=== PATIENT | male | born 1965 | race Caucasian/White ===

== ENCOUNTER → 2018-12-15 09:05 | Outpatient (POV) | payer BC, SELFPAY ==
[2018-12-15 09:23] VITALS: BP 131/85; PULSE 75; RESP 18; O2SAT 98; BMI 44.3
--- NOTE | 2018-12-15 09:49 | HMH.PMCON ---
Assessment and Plan (1) Myofascial pain syndrome of thoracic spine Current visit: Yes Status: Chronic Category: Medical Code(s): M79.18 - Myalgia, other site - Assessment and plan all Dx Assessment and Plan for all problems:: We will schedule the patient for dry needling with physical therapy. We will see if the patient benefits from this. He would like to follow-up on an as-needed basis. He is been instructed to call the office if he has any issues or wants to follow-up. Dr. Preston has reviewed this note and agrees with this plan of care. This note was dictated using voice recognition software and may contain errors or omissions HPI - Data of Consult Patient: new to practice Consult date: 12/15/18 Requesting Physician: Deja Teague APRN Primary Care Provider: Robert Boyle MD - Consult Narrative Reason for consult: Myofascial pain History of present illness: Mr. Toussaint is a 53 year old male who presents today referral from Dr. Fernandez's office. Patient has a complaint of thoracic myofascial pain. Patient says that he has tried epidural injections twice and developed a headache. He also says that he has tried Botox and trigger point injections x4. He did get relief for about a week, but reports the pain came right back. He has been performing a home stretching program as well as anti-inflammatories. Patient would like to try dry needling. He rates his pain today a 6 out of 10 CC: Deja Teague APRN [facility] History I have reviewed the patient's past medical history: Yes Medical History: Denies:: Cancer, Diabetes Mellitus Type 1, Diabetes Mellitus Type 2, MRSA *Have you ever received a pneumonia vaccine?: No *Have you received a flu vaccine this season?: No Other Surgeries: Yes: Hernia Repair Amputation: No Fractures: No - *Social History Smoking Status: Never smoker Alcohol Intake: never Substance Use Type: denies use *Occupational Status:: other Housing: house Household Members: spouse *Travel in the last 8 weeks: None - Psychiatric History Expresses thoughts of harming self/others: None Suicide Plan Description: No Plan Family Hx:: Unable to obtain Review of Systems - Review of Systems ROS General: no recent weight change, no fever, no sleep disturbances Respiratory: no cough, no shortness of air, no recurring pulmonary infections Cardiovascular/Peripheral Vascular: No chest pain, No palpitations, no edema, no shortness of breath. Gastrointestinal: no incontinence, normal bowel movements reported Genitourinary: no incontinence Musculoskeletal: Left thoracic back pain Psychiatric: normal mood/ affect, [denies depression], [denies anxiety] Neurological: [denies weakness in extremities], [denies balance issues] Meds Home Medications Medication Instructions Recorded Confirmed Type Ibuprofen [Ibuprofen 600mg Tab] 600 mg PO TID 12/27/17 12/14/18 History amitriptyline 100 mg tablet 100 mg PO QHS #30 tab 11/27/18 12/14/18 Rx amitriptyline 25 mg tablet 25 mg PO DAILY 11/27/18 12/14/18 History diazepam 5 mg tablet 5 mg PO QHS PRN 11/27/18 12/14/18 History famotidine 20 mg tablet 20 mg PO TID tab 11/27/18 12/14/18 History fluticasone propionate 50 1 spray INTRANASAL DAILY 11/27/18 12/14/18 History mcg/actuation nasal spray,suspension gabapentin 100 mg capsule See Rx Instructions PO .COMPLEX 11/27/18 12/14/18 History nebivolol 5 mg tablet 5 mg PO DAILY 11/27/18 12/14/18 History omeprazole 40 mg capsule,delayed 40 mg PO DAILY 11/27/18 12/14/18 History release tizanidine 4 mg capsule 4 mg PO BID PRN cap 11/27/18 12/14/18 History fluoxetine 20 mg capsule 20 mg PO DAILY #30 cap 12/14/18 12/14/18 Rx Allergies Allergy/AdvReac Type Severity Reaction Status Date / Time LACTOSE (FOOD) AdvReac Unknown NA-DIARRHEA Uncoded 12/14/18 09:25 Objective Vital signs: Pulse Resp BP Pulse Ox 75 18 131/85 98 12/15/18 09:23 12/15/18 09:23 12/15/18 09:23
--- NOTE | 2018-12-15 09:53 | P.CONS_ITS ---
Assessment and Plan (1) Myofascial pain syndrome of thoracic spine Current visit: Yes Status: Chronic Category: Medical Code(s): M79.18 - Myalgia, other site - Assessment and plan all Dx Assessment and Plan for all problems:: We will schedule the patient for dry needling with physical therapy. We will see if the patient benefits from this. He would like to follow-up on an as- needed basis. He is been instructed to call the office if he has any issues or wants to follow-up. Dr. Preston has reviewed this note and agrees with this plan of care. This note was dictated using voice recognition software and may contain errors or omissions HPI - Data of Consult Patient: new to practice Consult date: 12/15/18 Requesting Physician: Deja Teague APRN Primary Care Provider: Robert Boyle MD - Consult Narrative Reason for consult: Myofascial pain History of present illness: Mr. Toussaint is a 53 year old male who presents today referral from Dr. Fernandez's office. Patient has a complaint of thoracic myofascial pain. Patient says that he has tried epidural injections twice and developed a headache. He also says that he has tried Botox and trigger point injections x4. He did get relief for about a week, but reports the pain came right back. He has been performing a home stretching program as well as anti-inflammatories. Patient would like to try dry needling. He rates his pain today a 6 out of 10 CC: Deja Teague APRN [facility] History I have reviewed the patient's past medical history: Yes Medical History: Denies:: Cancer, Diabetes Mellitus Type 1, Diabetes Mellitus Type 2, MRSA *Have you ever received a pneumonia vaccine?: No *Have you received a flu vaccine this season?: No Other Surgeries: Yes: Hernia Repair Amputation: No Fractures: No - *Social History Smoking Status: Never smoker Alcohol Intake: never Substance Use Type: denies use *Occupational Status:: other Housing: house Household Members: spouse *Travel in the last 8 weeks: None - Psychiatric History Expresses thoughts of harming self/others: None Suicide Plan Description: No Plan Family Hx:: Unable to obtain Review of Systems - Review of Systems ROS General: no recent weight change, no fever, no sleep disturbances Respiratory: no cough, no shortness of air, no recurring pulmonary infections Cardiovascular/Peripheral Vascular: No chest pain, No palpitations, no edema, no shortness of breath. Gastrointestinal: no incontinence, normal bowel movements reported Genitourinary: no incontinence Musculoskeletal: Left thoracic back pain Psychiatric: normal mood/ affect, [denies depression], [denies anxiety] Neurological: [denies weakness in extremities], [denies balance issues] Meds Home Medications Medication Instructions Recorded Confirmed Type Ibuprofen [Ibuprofen 600mg Tab] 600 mg PO TID 12/27/17 12/14/18 History amitriptyline 100 mg tablet 100 mg PO QHS #30 tab 11/27/18 12/14/18 Rx amitriptyline 25 mg tablet 25 mg PO DAILY 11/27/18 12/14/18 History diazepam 5 mg tablet 5 mg PO QHS PRN 11/27/18 12/14/18 History famotidine 20 mg tablet 20 mg PO TID tab 11/27/18 12/14/18 History fluticasone propionate 50 1 spray INTRANASAL DAILY 11/27/18 12/14/18 History mcg/actuation nasal spray,suspension gabapentin 100 mg capsule See Rx Instructions PO .COMPLEX 11/27/18 12/14/18 History nebivolol 5 mg tablet 5 mg PO DAILY 11/27/18
== END ==
PROVIDERS: PCP Internal Medicine Adolescent Medicine; Visit Provider Clinical Nurse Specialist Family Health
DX: M79.18 Myalgia, other site (principal)
CPT/HCPCS: 99202

== ENCOUNTER 2018-12-29 11:00 | Outpatient (RCR) | payer BC, SELFPAY ==
--- NOTE | 2018-12-17 12:05 | HMH.PTOPEV ---
PT Outpatient Evaluation Rehab PT Outpatient Evaluation Start: 12/17/18 10:08 Freq: Status: Active Protocol: Document 12/17/18 11:52 GOLDY (Rec: 12/17/18 12:05 PHORNIKO [id number]) Electronically Signed By Fco Mares, PT 12/17/18 11:52 Outpatient Therapy Subjective History Subjective History Pt is 53 yowm who presents with c/o pain medial to the medial border of his left scapula x ~ 2 yrs with insidious onset of symptoms. He was working at [employer] when his symptoms occured, but he does not remember a specific injury that could cause these symptoms. He has seen multiple MDs and been to multiple therapy visits at different location with little to no relief. He reports the best relief he received was from trigger pt injection in the area, but this only lasted 1-2 wks. He reports the pain as constant ache and throb with kim pains intermittently, especially with certain movements or jarring sensations from driving or other similar activities. He currently reports pain 6/10 at rest and 10/10 at worst. He reports no significant PMH. Chief Complaint Pain,Spasms Symptom Type Ache,Throb,Sharp,Stabbing, Shooting Symptoms Relieved By Nothing Symptoms Aggravated By Sitting,Standing,Physical Activity,Twisting,Walking, Lifting Prior Functional Limitations None Current Functional Limitations Reaching,Lifting,Housework, Driving,Sleeping,Standing, Sitting,Recreation Activity, Walking Symptom Description Constant but Variable Level of pain today (0-10) 6 Pain scale - at its worst (0-10) 10 Shoulder/Elbow Eval Shoulder Objective Measurements Palpation Tenderness Shoulder Palpation Findings Tenderness,Muscle Guarding Shoulder Palpation Overall Comment Very severe tenderness between medial scapula and T-spine
== END 2018-12-29 11:05 | disposition home or self-care (01) ==
LOC: PT 11:00
PROVIDERS: Visit Provider Clinical Nurse Specialist Family Health
DX: M54.6 Pain in thoracic spine (principal)
CPT/HCPCS: 97010; 97014; 97035; 97110; 97140; 97163; G0283

== ENCOUNTER → 2019-12-06 08:49 | Outpatient (CLI) | payer BC, MEDICAID, SELFPAY ==
--- NOTE | 2019-12-06 08:55 | MR_ITS ---
PROCEDURE: MR THORACIC SPINE WO CON CLINICAL INDICATION: THORACIC NEURALGIA, PAIN IN LEFT SHOULDER Mid back pain worse on the left COMPARISON: CXR1 CHEST-PORTABLE from 07/05/2016 TSW/O MRI-T-SPINE W/O from 12/03/2016 TECHNIQUE: Routine multiplanar multi echo sequences are performed without gadolinium enhancement. FINDINGS: There is mild midthoracic curvature convex right. No fracture or dislocation. No bony destructive process. There is some mild disc desiccation at T8-T9. No disc herniation or canal stenosis.. There is some slight increase in T1 and T2 signal in the central and posterior aspect of the T6 vertebral body may be due to small lipomas/hemangiomas unchanged. IMPRESSION: Overall stable MRI appearance of the thoracic spine. Minimal thoracic curvature convex right with minimal disc desiccation at T8-T9 otherwise negative Dictated by: Cristian Chi MD 12/07/2019 11:35 Electronically signed by Cristian Chi MD in [place] 12/07/2019 11:35
--- NOTE | 2019-12-06 08:55 | MR_ITS ---
PROCEDURE: MR SHOULDER LT WO CON CLINICAL INDICATION: THORACIC NEURALGIA, PAIN IN LEFT SHOULDER Left shoulder pain with limited range of motion COMPARISON: No exams were available for comparison TECHNIQUE: Routine multiplanar multi echo sequences are performed without gadolinium enhancement. FINDINGS: There is slight increased T2 signal involving the undersurface of the supraspinatus tendon. Cannot exclude the possibility of a incomplete tear. There is mild thickening of the supraspinatus and infraspinatus tendon with increased T2 signal suggesting tendinopathy/tendinosis. The subscapularis and teres minor tendons appear intact. The bicipital tendon is in place with a small amount fluid in the bicipital tendon sheath. There is increased T2 signal involving the anterior glenoid labrum superiorly possibly due to a SLAP injury. Small amount fluid is present in the subcoracoid region. Mild hypertrophic changes involve the acromioclavicular joint. No significant subacromial stenosis. IMPRESSION: 1. Tendinopathy/tendinosis of the supraspinatus and infraspinatus tendons with possible incomplete tear of the undersurface of the supraspinatus tendon 2. Suspected SLAP tear of the anterior glenoid labrum. This could be confirmed with MR arthrogram if clinically desired. 3. Small shoulder joint effusion with small amount fluid in the sub coracoid region Dictated by: Cristian Chi MD 12/07/2019 16:43 Electronically signed by Cristian Chi MD in [place] 12/07/2019 16:43
== END ==
PROVIDERS: PCP Internal Medicine Adolescent Medicine; Visit Provider Internal Medicine Adolescent Medicine
DX: M79.2 Neuralgia and neuritis, unspecified (principal); M79.18 Myalgia, other site; M25.512 Pain in left shoulder
CPT/HCPCS: 72146; 73221

== ENCOUNTER 2019-12-23 11:00 | Outpatient (RCR) | payer BC, MEDICAID, SELFPAY | END 2019-12-23 11:05 | disposition home or self-care (01) | LOC: PT 11:00 | PROVIDERS: PCP Internal Medicine Adolescent Medicine; Visit Provider Anesthesiology Pain Medicine | DX: M54.6 Pain in thoracic spine (principal) | CPT/HCPCS: 97010; 97014; 97035; 97110; 97140; 97163; G0283 ==

== ENCOUNTER → 2020-12-20 12:04 | Outpatient (CLI) | payer MEDICARE, BC, SELFPAY ==
--- NOTE | 2020-12-20 12:14 | XR_ITS ---
PROCEDURE: XR ANKLE LT MIN 3V CLINICAL INDICATION: SPRAIN OF LT ANKLE COMPARISON: No exams were available for comparison FINDINGS: There is mild diffuse soft tissue swelling laterally. Medial and lateral malleolus appear intact and the ankle mortise normal. The talus and calcaneus appear normal. There are tiny spurs of the calcaneus at the insertion of the plantar tendon and Achilles tendon. IMPRESSION: Mild soft tissue injury laterally, no acute fracture seen Dictated by: Dr. Vincent Carlisle MD 12/20/2020 13:26 Dr. Vincent Carlisle MD in [place] 12/20/2020 13:26
== END ==
PROVIDERS: PCP Internal Medicine Adolescent Medicine; Visit Provider Internal Medicine Adolescent Medicine
DX: S93.402A Sprain of unspecified ligament of left ankle, initial encounter (principal)
CPT/HCPCS: 73610

== ENCOUNTER → 2021-05-30 10:12 | Outpatient (CLI) | payer MEDICARE, BC, SELFPAY ==
[2021-05-30 10:54] LABS: Basophils # 0.1 K/mm3 (0-0.2); Basophils % 0.9 % (0.1-2.0); Eosinophils # 0.3 K/mm3 (0.0-0.4); Eosinophils % 3.3 % (0.1-12.0); Hematocrit 37.8 % (42.0-52.0); Hemoglobin 12.9 g/dL (14.1-18.0); Lymphocytes # 1.7 K/mm3 (0.7-4.5); Lymphocytes % 20.7 % (10-50); Mean Corpuscular HGB Conc 34.2 g/dL (31.8-35.4); Mean Corpuscular Volume 90.8 fl (80-94); Mean Platelet Volume 9.7 fl (7.4-10.4); Monocytes # 0.6 K/mm3 (0.1-1.0); Monocytes % 6.7 % (1.7-9.3); Neutrophils # 5.6 K/mm3 (1.8-7.8); Neutrophils % 68.5 % (37.0-80.0); Platelet Count 234 K/mm3 (142-424); Red Blood Count 4.16 M/mm3 (4.60-6.20); Red Cell Distribution Width 13.9 % (11.5-17.5); White Blood Count 8.2 K/mm3 (4.8-10.8)
[2021-05-30 11:24] LABS: Alanine Aminotransferase 56 U/L (12-78); Albumin Level 3.8 g/dl (3.5-5.0); Albumin/Globulin Ratio 1.5 (1.1-1.8); Alkaline Phosphatase 81 U/L (38-126); Anion Gap 8.6 mEq/L (5-15); Aspartate Amino Transferase 35 U/L (17-59); Bilirubin,Total 0.4 mg/dl (0.2-1.3); Blood Urea Nitrogen 15 mg/dl (9-20); Calcium 8.9 mg/dl (8.4-10.2); Carbon Dioxide 29 mmol/L (22.0-30.0); Chloride 105 mmol/L (98-107); Chol/HDL Ratio 4.9 (1-3.5); Cholesterol 221 mg/dl (140-200); Estimated Glomerular Filt Rate 78 ml/min (>60); GFR (African American) 94 ML/MIN (>60); Globulin 2.6 g/dL (1.3-3.2); Glucose 88 mg/dl (74-100); HDL Cholesterol 45 mg/dl (40-60); Potassium 4.6 mmoL/L (3.5-5.1); Sodium 138 mmol/L (136-145); Total Protein,Serum 6.4 g/dl (6.3-8.2); Triglycerides 206 mg/dl (30-150); VLDL Cholesterol 41 mg/dL (0-40)
[2021-05-30 11:35] LABS: Direct LDL Cholesterol 125.68 mg/dL (100-129)
[2021-05-30 11:58] LABS: Triiodothryronine (T3) Uptake 33 % (23.5-40.5)
[2021-05-30 11:59] LABS: Free Thyroxine Index 3.1 ug/dL (5.93-13.13); T4 (Thyroxine) 9.4 ug/dl (5.53-11.0)
[2021-05-30 12:12] LABS: Thyroid Stimulating Hormone 2.95 uIU/mL (0.465-4.68)
[2021-05-30 12:14] LABS: Vitamin B12 694 pg/mL (239-931)
[2021-06-02 18:09] LABS: Testosterone, Total, LC/MS 230.6 ng/dL (264.0-916.0); Testosterone,Free 3.6 pg/mL (7.2-24.0)
== END ==
PROVIDERS: Visit Provider Internal Medicine Adolescent Medicine
DX: E78.5 Hyperlipidemia, unspecified (principal); R53.83 Other fatigue; R53.81 Other malaise; G47.33 Obstructive sleep apnea (adult) (pediatric)
CPT/HCPCS: 36415; 80053; 80061; 82607; 84402; 84403; 84436; 84443; 84479; 85025

== ENCOUNTER → 2021-07-03 10:24 | Outpatient (CLI) | payer MEDICARE, BC, SELFPAY | PROVIDERS: PCP Radiology Diagnostic Radiology; Visit Provider Nurse Practitioner | DX: Z20.822 Contact with and (suspected) exposure to COVID-19 (principal) | CPT/HCPCS: C9803; U0003; U0005 ==

== ENCOUNTER → 2021-07-26 09:58 | Outpatient (CLI) | payer MEDICARE, BC, SELFPAY ==
[2021-08-01 12:21] LABS: Testosterone, Total, LC/MS 440.6 ng/dL (264.0-916.0); Testosterone,Free 5.4 pg/mL (7.2-24.0)
== END ==
PROVIDERS: PCP Internal Medicine Adolescent Medicine; Visit Provider Internal Medicine Adolescent Medicine
DX: E29.1 Testicular hypofunction (principal)
CPT/HCPCS: 36415; 84402; 84403

== ENCOUNTER → 2021-11-07 12:38 | Outpatient (CLI) | payer MEDICARE, BC, SELFPAY | PROVIDERS: PCP Internal Medicine Adolescent Medicine; Visit Provider Surgery | DX: Z01.812 Encounter for preprocedural laboratory examination (principal); Z11.52 Encounter for screening for COVID-19; Z12.11 Encounter for screening for malignant neoplasm of colon | CPT/HCPCS: C9803; U0003; U0005 ==

== ENCOUNTER 2021-11-09 06:14 | Day surgery (SDC) | payer MEDICARE, BC, SELFPAY ==
[2021-11-07 10:45] VITALS: BMI 42.3
[2021-11-09 06:32] VITALS: BP 139/93; PULSE 64; RESP 18; TEMP 36.6; O2SAT 94
--- NOTE | 2021-11-09 06:55 | HMH.ANESCL ---
[facility] Anesthesia Checklist - Patient Identification Patient Identification: Arm Band - Structural Data Admitted From: Home Planned Operative Procedure/s: Colonoscopy Consent for Planned Operative Procedure(s) Verified: Yes Verified Documents: Surgical Consent, History and Physical - NPO Status Verified Time NPO: 00:00 - Additional verifications Anesthesia Reactions: No - Airway Assessment C-Spine Mobility Assessed: Yes (mp3) TMJ Mobility Assessed: Yes Dentition: Good Dentition - Neurological Assessment Level of Consciousness: Awake, Alert - Anesthesia Plan Anesthesia Risk discussed: Yes Anesthesia Plan: Verified ASA Class: III Anesthesia Type: MAC [facility] History I have reviewed the patient's past medical history: Yes Medical History: Reports:: Anxiety, Gastroesophageal Reflux Disease(GERD), Hypertension Denies:: Cancer, Diabetes Mellitus Type 1, Diabetes Mellitus Type 2, Internal Pacemaker, MRSA, Seizures *Have you ever received a pneumonia vaccine?: No *Have you received a flu vaccine this season?: Yes Other Medical History: Reports: Other (irineo-cpap hs) Anesthesia experience/problems:: nac Laterality Cases: Bilateral: Carpal Tunnel Release Other Surgeries: Yes: Hernia Repair, Other. No: Pacemaker Amputation: No Fractures: No - *Social History Last grade of school completed: Some college Smoking Status: Never smoker Alcohol Intake: never Substance Use Type: denies use *Occupational Status:: disabled Housing: house Household Members: spouse *Travel in the last 8 weeks: None Family Hx:: No significant family history
[2021-11-09 07:08] VITALS: O2SAT 94
--- NOTE | 2021-11-09 07:43 | HMH.SCOPE ---
- Procedure: Date: 11/09/21 Patient Date of :: 1965 Procedure Performed:: Total colonoscopy to cecum with polypectomy by cold snare Indications:: Patient is a 56-year-old male. He is referred by Dr. Robert Boyle for screening colonoscopy. Patient states that there had previously been a questionable family history of colon cancer and for some time he was undergoing colonoscopy every other year. He did have apparent refractory diverticulitis and underwent low anterior resection by Dr. Kuhn in 2009. Pathology revealed shallow diverticuli. He developed an anastomotic leak and required colostomy which was ultimately reversed. He did have a small incisional hernia at the colostomy site which I had repaired laparoscopically in 2013. Patient had pain and ultimately required explantation of the mesh. He did undergo colonoscopy in 2009 which revealed diverticulosis. Patient states that he had possibly had a colonoscopy about 5 years ago at another facility and had a couple of benign polyps. He was sent for screening colonoscopy. Performing Provider:: Kain Francis MD Referring Provider:: Robert Boyle MD Sedation:: MAC sedation Procedure:: Patient was taken to endoscopy procedure room. He was positioned in lateral decubitus position. Adequate intravenous sedation was achieved. Digital examination was performed. Prostate was unable to be evaluated due to the patient's body habitus. Variable stiffness Olympus colonoscope was inserted via the anus. Was advanced to the cecum. Colonic preparation was poor. There was particulate liquid stool and some undigested vegetable matter throughout the colon. Thorough irrigation and suctioning was performed which allowed for fair visualization. There was a small, 5 or 6 mm polyp, in the ascending colon removed with cold snare. Colonoscope was withdrawn through the remainder of the colon. Visualization was fair. There were no other obvious large polyps or masses or large diverticuli. Retroflexion within the rectum revealed no evidence of any pathologic internal hemorrhoids. Colonoscope was withdrawn. Findings:: Poor preparation Small adenomatous appearing polyp in the ascending colon Recommendations:: Due to the suboptimal preparation recommend repeat colonoscopy within 2 years with low residue diet for approximately 1 week and 2-day preparation Complications:: None immediately apparent Estimated blood obtained (mL): 1
[2021-11-09 07:44] VITALS: BP 159/88; PULSE 70; RESP 18; TEMP 36.3; O2SAT 95
[2021-11-09 07:54] VITALS: BP 125/79; PULSE 68; RESP 18; TEMP 36.3; O2SAT 94
[2021-11-09 08:04] VITALS: BP 145/74; PULSE 68; RESP 18; TEMP 36.3; O2SAT 95
[2021-11-09 08:26] VITALS: BP 122/77; PULSE 66; RESP 18; TEMP 36.3; O2SAT 94
== END 2021-11-09 08:26 | disposition home or self-care (01) ==
LOC: OUTP 06:16
PROVIDERS: PCP Internal Medicine Adolescent Medicine; Visit Provider Surgery
PROC: 0DJD8ZZ Inspection of Lower Intestinal Tract, Via Natural or Artificial Opening Endoscopic (ICD-10-PCS; principal; 2021-11-09 07:30)
DX: Z12.11 Encounter for screening for malignant neoplasm of colon (principal); K63.5 Polyp of colon; Z87.19 Personal history of other diseases of the digestive system; F41.9 Anxiety disorder, unspecified; K21.9 Gastro-esophageal reflux disease without esophagitis; I10 Essential (primary) hypertension; G47.33 Obstructive sleep apnea (adult) (pediatric)
CPT/HCPCS: 45385; 88305; J2704

== ENCOUNTER 2021-11-12 09:00 | Outpatient (RCR) | payer MEDICARE, BC, SELFPAY | END 2021-11-12 09:05 | disposition home or self-care (01) | LOC: PT 09:00 | PROVIDERS: PCP Internal Medicine Adolescent Medicine; Visit Provider Anesthesiology Pain Medicine | DX: M79.18 Myalgia, other site (principal); M51.34 Other intervertebral disc degeneration, thoracic region; M54.15 Radiculopathy, thoracolumbar region; M47.814 Spondylosis without myelopathy or radiculopathy, thoracic region; F11.20 Opioid dependence, uncomplicated; Z79.899 Other long term (current) drug therapy | CPT/HCPCS: 97010; 97014; 97035; 97110; 97140; 97163; G0283 ==

== ENCOUNTER → 2022-05-16 13:18 | Outpatient (CLI) | payer MEDICARE, BC, SELFPAY ==
--- NOTE | 2022-05-16 13:22 | XR_ITS ---
FINAL REPORT CLINICAL HISTORY: pain..no imjury FINDINGS: 3 views of the left shoulder were obtained. There is no acute fracture or dislocation. The AC joint and glenohumeral joint are intact. There is questionable widening of the subacromial space that could be due to a joint effusion. IMPRESSION: Questionable widening of the subacromial space may be due to a joint effusion. Reviewed, Interpreted and Dictated by Venkat Tomas MD Transcribed by Quoc Frausto Authenticated and [facility]
== END ==
PROVIDERS: PCP Internal Medicine Adolescent Medicine; Visit Provider Orthopaedic Surgery
DX: M25.512 Pain in left shoulder (principal)
CPT/HCPCS: 73030

== ENCOUNTER → 2022-06-10 08:49 | Outpatient (CLI) | payer MEDICARE, BC, SELFPAY | PROVIDERS: PCP Internal Medicine Adolescent Medicine; Visit Provider Orthopaedic Surgery | DX: M25.512 Pain in left shoulder (principal) ==

== ENCOUNTER → 2022-10-08 09:49 | Outpatient (CLI) | payer MEDICARE, BC, SELFPAY ==
[2022-10-08 10:38] LABS: Basophils # 0.1 K/mm3 (0-0.2); Eosinophils # 0.2 K/mm3 (0.0-0.4); Eosinophils % 2.2 % (0.1-12.0); Hematocrit 40.6 % (42.0-52.0); Hemoglobin 13.7 g/dL (14.1-18.0); Lymphocytes # 2.8 K/mm3 (0.7-4.5); Lymphocytes % 33.9 % (10-50); Mean Corpuscular HGB Conc 33.6 g/dL (31.8-35.4); Mean Corpuscular Hemoglobin 29.8 pg (27.0-31.2); Mean Corpuscular Volume 88.7 fl (80-94); Mean Platelet Volume 9.1 fl (7.4-10.4); Monocytes # 0.6 K/mm3 (0.1-1.0); Monocytes % 6.9 % (1.7-9.3); Neutrophils # 4.7 K/mm3 (1.8-7.8); Platelet Count 239 K/mm3 (142-424); Red Blood Count 4.58 M/mm3 (4.60-6.20); Red Cell Distribution Width 14.1 % (11.5-17.5); White Blood Count 8.3 K/mm3 (4.8-10.8)
[2022-10-08 12:16] LABS: Alanine Aminotransferase 27 U/L (12-78); Albumin Level 4.1 g/dl (3.5-5.0); Albumin/Globulin Ratio 1.6 (1.1-1.8); Alkaline Phosphatase 85 U/L (38-126); Anion Gap 8.8 mEq/L (5-15); Aspartate Amino Transferase 25 U/L (17-59); Bilirubin,Total 0.4 mg/dl (0.2-1.3); Blood Urea Nitrogen 27 mg/dl (9-20); Calcium 8.8 mg/dl (8.4-10.2); Carbon Dioxide 25 mmol/L (22.0-30.0); Chloride 105 mmol/L (98-107); Chol/HDL Ratio 4.9 (1-3.5); Cholesterol 225 mg/dl (140-200); Estimated Glomerular Filt Rate 57 ml/min (>60); GFR (African American) 69 ML/MIN (>60); Globulin 2.6 g/dL (1.3-3.2); Glucose 91 mg/dl (74-100); HDL Cholesterol 46 mg/dl (40-60); Potassium 4.8 mmoL/L (3.5-5.1); Sodium 134 mmol/L (136-145); Total Protein,Serum 6.7 g/dl (6.3-8.2); Triglycerides 168 mg/dl (30-150); VLDL Cholesterol 34 mg/dL (0-40)
[2022-10-08 12:27] LABS: Direct LDL Cholesterol 115.15 mg/dL (100-129)
[2022-10-08 12:29] LABS: Hemoglobin A1C 7.3 % (4.0-6.0)
[2022-10-08 13:01] LABS: Vitamin B12 635 pg/mL (239-931)
[2022-10-09 10:13] LABS: Testosterone,Total 288 ng/dL (264-916)
== END ==
PROVIDERS: PCP Internal Medicine Adolescent Medicine; Visit Provider Internal Medicine Adolescent Medicine
DX: Z00.00 Encounter for general adult medical examination without abnormal findings (principal); I10 Essential (primary) hypertension; E78.5 Hyperlipidemia, unspecified; E55.9 Vitamin D deficiency, unspecified; Z79.899 Other long term (current) drug therapy
CPT/HCPCS: 36415; 80053; 80061; 82306; 82607; 83036; 84403; 85025

== ENCOUNTER 2022-11-25 11:48 | Emergency (ER) | payer MEDICARE, BC, SELFPAY ==
[2022-11-25 11:49] VITALS: BP 148/92; PULSE 104; RESP 20; TEMP 36.8; O2SAT 99; BMI 44.3
[2022-11-25 12:19] VITALS: BMI 44.3
[2022-11-25 12:24] LABS: Adenovirus F 40/41, stool Not Detected (NotDetected); Campylobacter Not Detected (NotDetected); Clostridium Difficile A/B, PCR Not Detected (NotDetected); Cryptosporidium Not Detected (NotDetected); Cyclospora Cayetanesis Not Detected (NotDetected); Entamoeba histolytica Not Detected (NotDetected); Enteroaggregative E coli Not Detected (NotDetected); Enteropathogenic E coli Not Detected (NotDetected); Enterotoxigenic E coli Not Detected (NotDetected); Giardia lamblia Not Detected (NotDetected); Norovirus Not Detected (NotDetected); Plesimonas Shigalloides, PCR Not Detected (NotDetected); Rotavirus A Not Detected (NotDetected); Salmonella, PCR Not Detected (NotDetected); Sapovirus Not Detected (NotDetected); Shiga-like toxin E coli Not Detected (NotDetected); Shigella Enterovasive E coli Not Detected (NotDetected); Vibrio Cholerae Not Detected (NotDetected); Vibrio, PCR Not Detected (NotDetected); Yersinia Entercolitica, PCR Not Detected (NotDetected)
[2022-11-25 12:26] LABS: Basophils # 0.1 K/mm3 (0-0.2); Basophils % 0.8 % (0.1-2.0); Eosinophils # 0.2 K/mm3 (0.0-0.4); Eosinophils % 2.4 % (0.1-12.0); Hematocrit 50.6 % (42.0-52.0); Hemoglobin 16.5 g/dL (14.1-18.0); Mean Corpuscular HGB Conc 32.6 g/dL (31.8-35.4); Mean Corpuscular Hemoglobin 29.2 pg (27.0-31.2); Mean Corpuscular Volume 89.6 fl (80-94); Mean Platelet Volume 8.9 fl (7.4-10.4); Monocytes # 0.3 K/mm3 (0.1-1.0); Monocytes % 4.6 % (1.7-9.3); Neutrophils # 5.8 K/mm3 (1.8-7.8); Neutrophils % 78.2 % (37.0-80.0); Platelet Count 270 K/mm3 (142-424); Red Blood Count 5.65 M/mm3 (4.60-6.20); Red Cell Distribution Width 13.9 % (11.5-17.5); White Blood Count 7.4 K/mm3 (4.8-10.8)
[2022-11-25 12:28] LABS: Chloride 109 mmol/L (98-107); Potassium 3.5 mmoL/L (3.5-5.1); Sodium 142 mmol/L (136-145)
--- NOTE | 2022-11-25 12:29 | HMH.EDABDPAI ---
Discharge Plan Disposition Patient Disposition: Home, Self-Care Condition: Good Prescriptions Prescriptions: New ondansetron 4 mg tablet,disintegrating 4 mg PO Q8H PRN (Reason: nausea and vomiting) 5 Days Qty: 14 0RF dicyclomine 10 mg capsule 10 mg PO TID PRN (Reason: cramps) Qty: 14 0RF ciprofloxacin HCl [Cipro] 500 mg tablet 500 mg PO BID Qty: 20 0RF metronidazole 500 mg tablet 500 mg PO BID 7 Days Qty: 14 0RF No Action venlafaxine [Effexor XR] 150 mg capsule,extended release 24hr 150 mg PO DAILY Qty: 30 2RF venlafaxine [Effexor XR] 75 mg capsule,extended release 24hr 75 mg PO .COMPLEX Qty: 30 2RF Rx Instructions: 75 mg PO take daily with 150mg capsule; total dose is 225mg daily famotidine 20 mg tablet 20 mg PO TID Label Comments: previous doctor Bystolic 5 mg tablet 5 mg PO DAILY Label Comments: previous doctor omeprazole 40 mg capsule,delayed release(DR/EC) 40 mg PO DAILY Label Comments: previous doctor tizanidine 4 mg capsule 4 mg PO BID PRN (Reason: pain) Label Comments: previous doctor administered fluticasone propionate 50 mcg/actuation spray,suspension 1 spray intranasal DAILY diazepam 5 mg tablet 5 mg PO QHS PRN (Reason: anxiety) Qty: 30 0RF ibuprofen 600 MG tablet 600 mg PO TID gabapentin 100 mg capsule See Rx Instructions PO .COMPLEX Label Comments: pt had previous doctor administered Dr. Simmons Rx Instructions: 600 PO qid; peg 3350-electrolytes 4,000 ML recon soln 240 ml PO Q10M Rx Instructions: until fecal effluent is clear Referrals Follow up/Referrals: Robert Boyle MD [Primary Care Provider] - See instructions Activity Restrictions/Add. Instructions Additional Instructions/Restrictions: Hydrate with an oral rehydration solution such as Pedialyte. Return for worsening pain fever or other concerns. Clinical Impressions Clinical Impression: Astrovirus gastroenteritis Instructions Patient Instructions: DI for Acute Abdominal Pain Discharge ED Provider: Dao Saldaña Abdominal Pain HPI General Chief Complaint: Abdominal Pain Stated Complaint: joint pain, nausea, diarrhea, abd pain Time Seen by Provider: 11/25/22 12:30 Mode of Arrival: Ambulatory Source of Information: Patient Limitations: No Limitations Description of Symptoms (Recalled from ER Triage Doc. by RN): Pt reports sharp/stabbing abd pain that began friday. Pt reports several episodes of diarrhea daily. Denies vomiting and fever. History of Present Illness HPI narrative: Patient presents with 3 to 4 days of abdominal pain, nausea and diarrhea has had prior partial colectomy for diverticulitis as well as appendectomy. He denies fever. He describes the pain as diffuse and severe and without exacerbating or alleviating factors. Related Data Home Medications Medication Instructions Recorded Confirmed ibuprofen 600 mg tablet 600 mg PO TID Pain 12/27/17 10/17/22 famotidine 20 mg tablet 20 mg PO TID stomach 11/27/18 10/17/22 fluticasone propionate 50 1 spray intranasal DAILY Breathing 11/27/18 10/17/22 mcg/actuation nasal problems spray,suspension gabapentin 100 mg capsule See Rx Instructions PO .COMPLEX 11/27/18 10/17/22 Pain nebivolol 5 mg tablet (Bystolic) 5 mg PO DAILY bp 11/27/18 10/17/22 omeprazole 40 mg capsule,delayed 40 mg PO DAILY GERD 11/27/18 10/17/22 release tizanidine 4 mg capsule 4 mg PO BID PRN pain 11/27/18 10/17/22 peg 3350-electrolytes 236 240 ml PO Q10M prep 11/09/21 10/17/22 gram-22.74 gram-6.74 gram-5.86 gram solution Previous Rx's Medication Instructions Recorded diazepam 5 mg tablet 5 mg PO QHS PRN anxiety #30 tabs 01/24/22 venlafaxine 150 mg 150 mg PO DAILY . #30 caps 09/03/22 capsule,extended release 24 hr (Effexor XR) venlafaxine 75 mg capsule,extended 75 mg PO .COMPLEX #30 caps 09/03/22 release 24 hr (Effexor XR) ci
[2022-11-25 12:31] LABS: Alanine Aminotransferase 45 U/L (12-78); Albumin Level 4.8 g/dl (3.5-5.0); Albumin/Globulin Ratio 1.3 (1.1-1.8); Alkaline Phosphatase 89 U/L (38-126); Anion Gap 17.5 mEq/L (5-15); Aspartate Amino Transferase 51 U/L (17-59); Bilirubin,Total 0.6 mg/dl (0.2-1.3); Blood Urea Nitrogen 18 mg/dl (9-20); Carbon Dioxide 19 mmol/L (22.0-30.0); Creatinine Clearance Estimated 63 mL/min (50-200); Estimated Glomerular Filt Rate 57 ml/min (>60); GFR (African American) 69 ML/MIN (>60); Globulin 3.7 g/dL (1.3-3.2); Lipase 184 U/L (23-300); Total Protein,Serum 8.5 g/dl (6.3-8.2)
[2022-11-25 12:32] LABS: Calcium 9.4 mg/dl (8.4-10.2); Glucose 118 mg/dl (74-100)
--- NOTE | 2022-11-25 12:34 | CT_ITS ---
PROCEDURE INFORMATION: Exam: CT Abdomen And Pelvis With Contrast Exam date and time: 11/25/2022 12:53 PM Age: 57 years old Clinical indication: Abdominal pain; Generalized; Additional info: Abd pain TECHNIQUE: Imaging protocol: Computed tomography of the abdomen and pelvis with contrast. Radiation optimization: All CT scans at this facility use at least one of these dose optimization techniques: automated exposure control; mA and/or kV adjustment per patient size (includes targeted exams where dose is matched to clinical indication); or iterative reconstruction. Contrast material: ISOVUE; Contrast volume: 75 ml; Contrast route: IV; REPORTING DATA: Count of CT and Cardiac NM exams in prior 12 months: This patient has received 0 known CTs and 0 known cardiac nuclear medicine studies in the 12 months prior to the current study. COMPARISON: ABDPELW/O CT ABD PELVIS W/O CONTRAST 10/22/2016 3:06 PM FINDINGS: Lungs: Lung bases are unremarkable. Liver: No focal hepatic lesions. Gallbladder and bile ducts: Cholelithiasis noted without pericholecystic fluid/stranding. Pancreas: No peripancreatic fluid stranding. No main pancreatic ductal dilation. Spleen: No splenomegaly. Adrenal glands: The adrenal glands are normal. Kidneys and ureters: Nephrograms are symmetric. No nephrolithiasis or hydroureteronephrosis on either side. No solid lesions Stomach and bowel: Enteroenteric anastomosis in the rectosigmoid junction. There is mild mucosal hyperenhancement and liquid stool in the rectum and distal colon Appendix: A normal appendix is not well visualized. However, no evidence of inflammatory changes in the right lower quadrant to suggest acute appendicitis. Intraperitoneal space: There is no evidence of free intraperitoneal or pelvic fluid. Vasculature: Aorta is nonaneurysmal. Lymph nodes: No evidence of retroperitoneal or mesenteric lymphadenopathy. Urinary bladder: Urinary bladder is unremarkable. Reproductive: Unremarkable as visualized. Bones/joints: No acute osseous abnormality. Soft tissues: Unremarkable. IMPRESSION: 1. Findings can be attributed to proctocolitis in the appropriate clinical context. 2. Cholelithiasis.
--- NOTE | 2022-11-25 12:47 | INFXCTL.NOTE ---
PT TO CT
--- NOTE | 2022-11-25 12:56 | PC.NURSE ---
PT RETURNED FROM CT
--- NOTE | 2022-11-25 13:05 | PC.NURSE ---
Report from Meche Espitia RN
[2022-11-25 13:31] VITALS: BP 118/73
[2022-11-25 14:00] VITALS: BP 135/92
--- NOTE | 2022-11-25 14:20 | PC.NURSE ---
per lab staff approx 28 minutes left until results of diarrhea panel
[2022-11-25 14:31] VITALS: BP 119/83
--- NOTE | 2022-11-25 14:45 | PC.NURSE ---
rounded on pt. asked if they needed anything. pt advised they had no needs at this time
[2022-11-25 15:00] VITALS: BP 133/82
[2022-11-25 15:19] LABS: Astrovirus Detected (NotDetected)
--- NOTE | 2022-11-25 15:29 | PC.NURSE ---
PATIENT ASSISTED TO BATHROOM
[2022-11-25 15:54] VITALS: BP 133/82; PULSE 93; RESP 18; TEMP 36.8; O2SAT 98
== END 2022-11-25 16:13 | disposition home or self-care (01) ==
PROVIDERS: Emergency Provider Emergency Medicine; PCP Internal Medicine Adolescent Medicine
DX: A08.32 Astrovirus enteritis (principal)
CPT/HCPCS: 74177; 80053; 83690; 85025; 87506; 96361; 96374; 96375; 96376; 99284; 99285; J2405; Q9967

== ENCOUNTER → 2023-05-05 08:40 | Outpatient (CLI) | payer MEDICARE, BC, SELFPAY ==
[2023-05-05 09:17] LABS: Basophils # 0.1 K/mm3 (0-0.2); Basophils % 1.7 % (0.1-2.0); Eosinophils # 0.4 K/mm3 (0.0-0.4); Eosinophils % 5.7 % (0.1-12.0); Hematocrit 41.9 % (42.0-52.0); Hemoglobin 14.7 g/dL (14.1-18.0); Lymphocytes # 2.6 K/mm3 (0.7-4.5); Lymphocytes % 38.1 % (10-50); Mean Corpuscular Hemoglobin 31.6 pg (27.0-31.2); Mean Corpuscular Volume 90.3 fl (80-94); Mean Platelet Volume 8.8 fl (7.4-10.4); Monocytes # 0.4 K/mm3 (0.1-1.0); Monocytes % 5.2 % (1.7-9.3); Neutrophils # 3.4 K/mm3 (1.8-7.8); Neutrophils % 49.4 % (37.0-80.0); Platelet Count 194 K/mm3 (142-424); Red Blood Count 4.65 M/mm3 (4.60-6.20); White Blood Count 6.9 K/mm3 (4.8-10.8)
[2023-05-05 09:48] LABS: Alanine Aminotransferase 35 U/L (12-78); Albumin Level 4.1 g/dl (3.5-5.0); Albumin/Globulin Ratio 1.4 (1.1-1.8); Alkaline Phosphatase 71 U/L (38-126); Anion Gap 14.1 mEq/L (5-15); Aspartate Amino Transferase 34 U/L (17-59); Bilirubin,Total 0.4 mg/dl (0.2-1.3); Blood Urea Nitrogen 18 mg/dl (9-20); Calcium 8.9 mg/dl (8.4-10.2); Carbon Dioxide 23 mmol/L (22.0-30.0); Chloride 108 mmol/L (98-107); Estimated Glomerular Filt Rate 69 ml/min (>60); GFR (African American) 84 ML/MIN (>60); Globulin 2.9 g/dL (1.3-3.2); Glucose 94 mg/dl (74-100); Potassium 4.1 mmoL/L (3.5-5.1); Sodium 141 mmol/L (136-145)
[2023-05-05 10:04] LABS: 25-OH Vitamin D, Total 28.2 ng/mL (30-100)
[2023-05-05 10:36] LABS: Vitamin B12 916 pg/mL (239-931)
[2023-05-05 12:24] LABS: Hemoglobin A1C 5.1 % (4.0-6.0)
== END ==
PROVIDERS: PCP Internal Medicine Adolescent Medicine; Visit Provider Internal Medicine Adolescent Medicine
DX: E11.69 Type 2 diabetes mellitus with other specified complication (principal); I10 Essential (primary) hypertension; E78.5 Hyperlipidemia, unspecified; E55.9 Vitamin D deficiency, unspecified
CPT/HCPCS: 36415; 80053; 82306; 82607; 83036; 85025

== ENCOUNTER 2023-05-17 08:53 | Emergency (ER) | payer MEDICARE, BC, SELFPAY ==
--- NOTE | 2023-05-17 08:55 | XR_ITS ---
PROCEDURE INFORMATION: Exam: XR Chest Exam date and time: 05/17/2023 8:55 AM Age: 57 years old Clinical indication: Cough; Additional info: Cough, congestion TECHNIQUE: Imaging protocol: Radiologic exam of the chest. Views: 2 views. COMPARISON: CR CXR1 CHEST-PORTABLE 07/05/2016 7:28 AM FINDINGS: Lungs: There is basilar atelectasis. Pleural spaces: Unremarkable. No pleural effusion. No pneumothorax. Heart/Mediastinum: Unremarkable. No cardiomegaly. Vasculature: The aorta is tortuous. Bones/joints: Unremarkable. IMPRESSION: Basilar atelectasis.
[2023-05-17 09:00] VITALS: BP 165/96; PULSE 85; RESP 24; TEMP 36.9; O2SAT 93; BMI 40.8
--- NOTE | 2023-05-17 09:08 | EXP.UTC ---
Discharge Plan Disposition Patient Disposition: Home, Self-Care Condition: Good Prescriptions Prescriptions: New amoxicillin [amoxicillin] 875 mg tablet 875 mg PO Q12H Qty: 20 0RF benzonatate [benzonatate] 100 mg capsule 100 mg PO TIDP PRN (Reason: Cough) Qty: 30 0RF methylprednisolone 4 mg Tablets,Dose Pack 4 mg PO DIRECTED Qty: 21 0RF albuterol sulfate [Ventolin HFA] 90 mcg/actuation HFA aerosol inhaler 2 puff inhalation Q6H PRN (Reason: shortness of breath or wheezing) Qty: 6.7 0RF No Action diazepam 5 mg tablet 5 mg PO QHS PRN (Reason: anxiety) Qty: 30 0RF venlafaxine [Effexor XR] 150 mg capsule,extended release 24hr 150 mg PO DAILY Qty: 30 2RF venlafaxine [Effexor XR] 75 mg capsule,extended release 24hr 75 mg PO .COMPLEX Qty: 30 2RF Rx Instructions: 75 mg PO take daily with 150mg capsule; total dose is 225mg daily famotidine 20 mg tablet 20 mg PO TID Patient Comments: previous doctor Bystolic 5 mg tablet 5 mg PO DAILY Patient Comments: previous doctor omeprazole 40 mg capsule,delayed release(DR/EC) 40 mg PO DAILY Patient Comments: previous doctor tizanidine 4 mg capsule 4 mg PO BID PRN (Reason: pain) Patient Comments: previous doctor administered fluticasone propionate 50 mcg/actuation spray,suspension 1 spray intranasal DAILY ibuprofen 600 MG tablet 600 mg PO TID gabapentin 100 mg capsule See Rx Instructions PO .COMPLEX Patient Comments: pt had previous doctor administered Dr. Simmons Rx Instructions: 600 PO qid; peg 3350-electrolytes 4,000 ML recon soln 240 ml PO Q10M Rx Instructions: until fecal effluent is clear ondansetron 4 mg tablet,disintegrating 4 mg PO Q8H PRN (Reason: nausea and vomiting) 5 Days Qty: 14 0RF dicyclomine 10 mg capsule 10 mg PO TID PRN (Reason: cramps) Qty: 14 0RF Referrals Follow up/Referrals: Robert Boyle MD [Primary Care Provider] - See instructions Activity Restrictions/Add. Instructions Additional Instructions/Restrictions: Drink plenty of fluids. Take tylenol or ibuprofen for pain or fever. Take the medications as directed. Follow up with your regular doctor. GO TO THE ER FOR ANY WORSENING SYMPTOMS Don't start the oral steroids until tomorrow, since you had the shot here today. Clinical Impressions Clinical Impression: Acute bronchitis Instructions Patient Instructions: How to Use an Incentive Spirometer, Acute Bronchitis, DI for Acute Bronchitis Discharge ED Provider: Tk [place]qu[place] [facility] [place] General Stated complaint: lung pain, cough Mode of Arrival: Ambulatory Source of Information: Patient Limitations: No Limitations Time Seen by Provider: 05/17/23 09:07 Description of Symptoms (Recalled from Triage Doc. by RN): PATIENT C/O WHEEZING AND SOA THAT STARTED LAST NIGHT HEENT Symptoms (Recalled from RN notes): No Resp Symptoms (Recalled from RN notes): Yes Skin Symptoms (Recalled from RN notes): No MS Symptoms (Recalled from RN notes): No Functional Status (Recalled from RN notes): WNL History of Present Illness Provider Complaint: He states that for the past 2 weeks he has had sinus congestion. He states that his symptoms are worsening. Related Data Home Medications Medication Instructions Recorded Confirmed ibuprofen 600 mg tablet 600 mg PO TID Pain 12/27/17 03/04/23 famotidine 20 mg tablet 20 mg PO TID stomach 11/27/18 03/04/23 fluticasone propionate 50 1 spray intranasal DAILY Breathing 11/27/18 03/04/23 mcg/actuation nasal problems spray,suspension gabapentin 100 mg capsule See Rx Instructions PO .COMPLEX 11/27/18 03/04/23 Pain nebivolol 5 mg tablet (Bystolic) 5 mg PO DAILY bp 11/27/18 03/04/23 omeprazole 40 mg capsule,delayed 40 mg PO DAILY GERD 11/27/18 03/04/23 release tizanidine 4 mg capsule 4 mg PO BID PRN pain 11/27/18 03/04/23 peg 3350-electrolytes 236 240
[2023-05-17 10:00] VITALS: BP 165/96; PULSE 85; RESP 24; TEMP 36.9; O2SAT 93
== END 2023-05-17 10:06 | disposition home or self-care (01) ==
PROVIDERS: Emergency Provider Nurse Practitioner Family; PCP Internal Medicine Adolescent Medicine
DX: J20.9 Acute bronchitis, unspecified (principal); R07.1 Chest pain on breathing; R06.02 Shortness of breath; R06.2 Wheezing; R05.9 Cough, unspecified
CPT/HCPCS: 71046; 96372; 99204; 99212; G0463; J0696

== ENCOUNTER 2023-11-03 09:31 | Outpatient (CLI) | payer MEDICARE, BC, SELFPAY ==
[2023-11-03 10:39] LABS: Hemoglobin A1C 5.3 % (4.0-6.0)
[2023-11-03 11:16] LABS: Alanine Aminotransferase 34 U/L (12-78); Albumin Level 4.1 g/dl (3.5-5.0); Albumin/Globulin Ratio 1.5 (1.1-1.8); Alkaline Phosphatase 84 U/L (38-126); Anion Gap 12.4 mEq/L (5-15); Aspartate Amino Transferase 32 U/L (17-59); Bilirubin,Total 0.5 mg/dl (0.2-1.3); Blood Urea Nitrogen 18 mg/dl (9-20); Calcium 9.2 mg/dl (8.4-10.2); Carbon Dioxide 24 mmol/L (22.0-30.0); Chloride 110 mmol/L (98-107); Chol/HDL Ratio 4.4 (1-3.5); Cholesterol 199 mg/dl (140-200); Estimated Glomerular Filt Rate 57 ml/min (>60); GFR (African American) 69 ML/MIN (>60); Globulin 2.7 g/dL (1.3-3.2); Glucose 102 mg/dl (74-100); HDL Cholesterol 45 mg/dl (40-60); Potassium 4.4 mmoL/L (3.5-5.1); Sodium 142 mmol/L (136-145); Total Protein,Serum 6.8 g/dl (6.3-8.2); Triglycerides 155 mg/dl (30-150); VLDL Cholesterol 31 mg/dL (0-40)
[2023-11-03 11:26] LABS: Direct LDL Cholesterol 101.07 mg/dL (100-129)
[2023-11-03 11:31] LABS: 25-OH Vitamin D, Total 26.6 ng/mL (30-100)
[2023-11-03 12:04] LABS: Vitamin B12 984 pg/mL (239-931)
== END 2023-11-03 23:59 | disposition home or self-care (01) ==
LOC: LAB 09:36
PROVIDERS: PCP Internal Medicine Adolescent Medicine; Visit Provider Internal Medicine Adolescent Medicine
DX: E11.69 Type 2 diabetes mellitus with other specified complication (principal); E55.9 Vitamin D deficiency, unspecified; E53.8 Deficiency of other specified B group vitamins; Z79.899 Other long term (current) drug therapy
CPT/HCPCS: 36415; 80053; 80061; 82306; 82607; 83036

== ENCOUNTER 2024-05-21 10:07 | Outpatient (CLI) | payer MEDICARE, BC, SELFPAY ==
[2024-05-21 10:56] LABS: Basophils # 0.1 K/mm3 (0-0.2); Eosinophils # 0.3 K/mm3 (0.0-0.4); Eosinophils % 4.3 % (0.1-12.0); Hematocrit 44.6 % (42.0-52.0); Hemoglobin 15.4 g/dL (14.1-18.0); Lymphocytes # 1.8 K/mm3 (0.7-4.5); Lymphocytes % 26.5 % (10-50); Mean Corpuscular HGB Conc 34.6 g/dL (31.8-35.4); Mean Corpuscular Hemoglobin 30.6 pg (27.0-31.2); Mean Corpuscular Volume 88.3 fl (80-94); Mean Platelet Volume 8.6 fl (7.4-10.4); Monocytes # 0.4 K/mm3 (0.1-1.0); Monocytes % 6.1 % (1.7-9.3); Neutrophils # 4.1 K/mm3 (1.8-7.8); Platelet Count 248 K/mm3 (142-424); Red Blood Count 5.05 M/mm3 (4.60-6.20); Red Cell Distribution Width 13.7 % (11.5-17.5); White Blood Count 6.7 K/mm3 (4.8-10.8)
[2024-05-21 11:23] LABS: Alanine Aminotransferase 24 U/L (12-78); Albumin Level 4.4 g/dl (3.5-5.0); Albumin/Globulin Ratio 1.6 (1.1-1.8); Alkaline Phosphatase 89 U/L (38-126); Anion Gap 13.2 mEq/L (5-15); Aspartate Amino Transferase 27 U/L (17-59); Bilirubin,Total 0.6 mg/dl (0.2-1.3); Blood Urea Nitrogen 16 mg/dl (9-20); Calcium 9.4 mg/dl (8.4-10.2); Carbon Dioxide 24 mmol/L (22.0-30.0); Chloride 108 mmol/L (98-107); Estimated Glomerular Filt Rate 69 ml/min (>60); GFR (African American) 83 ML/MIN (>60); Globulin 2.7 g/dL (1.3-3.2); Glucose 86 mg/dl (74-100); Potassium 4.2 mmoL/L (3.5-5.1); Sodium 141 mmol/L (136-145); Total Protein,Serum 7.1 g/dl (6.3-8.2)
[2024-05-21 11:40] LABS: 25-OH Vitamin D, Total 44.5 ng/mL (30-100)
[2024-05-21 12:13] LABS: Vitamin B12 917 pg/mL (239-931)
[2024-05-21 14:05] LABS: Chol/HDL Ratio 5.4 (1-3.5); Cholesterol 239 mg/dl (140-200); HDL Cholesterol 44 mg/dl (40-60); Triglycerides 171 mg/dl (30-150); VLDL Cholesterol 34 mg/dL (0-40)
== END 2024-05-21 23:59 | disposition home or self-care (01) ==
LOC: LAB 10:19
PROVIDERS: PCP Internal Medicine Adolescent Medicine; Visit Provider Internal Medicine Adolescent Medicine
DX: E11.69 Type 2 diabetes mellitus with other specified complication (principal); E55.9 Vitamin D deficiency, unspecified
CPT/HCPCS: 36415; 80053; 80061; 82306; 82607; 83036; 85025

== ENCOUNTER 2024-10-27 10:01 | Outpatient (CLI) | payer MEDICARE, BC, SELFPAY ==
[2024-10-27 10:48] LABS: Hemoglobin A1C 5.1 % (4.0-6.0)
[2024-10-27 11:18] LABS: Albumin Level 4.6 g/dl (3.5-5.0); Chloride 110 mmol/L (98-107); Potassium 4.7 mmoL/L (3.5-5.1); Sodium 141 mmol/L (136-145)
[2024-10-27 11:21] LABS: Alanine Aminotransferase 31 U/L (12-78); Albumin/Globulin Ratio 1.8 (1.1-1.8); Alkaline Phosphatase 95 U/L (38-126); Anion Gap 8.7 mEq/L (5-15); Aspartate Amino Transferase 30 U/L (17-59); Bilirubin,Total 0.4 mg/dl (0.2-1.3); Blood Urea Nitrogen 18 mg/dl (9-20); Carbon Dioxide 27 mmol/L (22.0-30.0); Cholesterol 247 mg/dl (140-200); Estimated Glomerular Filt Rate 57 ml/min (>60); GFR (African American) 69 ML/MIN (>60); Globulin 2.6 g/dL (1.3-3.2); Total Protein,Serum 7.2 g/dl (6.3-8.2); Triglycerides 245 mg/dl (30-150); VLDL Cholesterol 49 mg/dL (0-40)
[2024-10-27 11:22] LABS: Calcium 9.6 mg/dl (8.4-10.2); Chol/HDL Ratio 5.5 (1-3.5); Glucose 96 mg/dl (74-100); HDL Cholesterol 45 mg/dl (40-60)
[2024-10-27 11:32] LABS: Direct LDL Cholesterol 122.72 mg/dL (100-129)
== END 2024-10-27 23:59 | disposition home or self-care (01) ==
LOC: LAB 10:03
PROVIDERS: PCP Internal Medicine Adolescent Medicine; Visit Provider Internal Medicine Adolescent Medicine
DX: E11.69 Type 2 diabetes mellitus with other specified complication (principal)
CPT/HCPCS: 36415; 80053; 80061; 83036

== ENCOUNTER 2024-11-05 15:26 | Outpatient (POV) | payer MEDICARE, BC, SELFPAY ==
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
[2024-11-05 15:47] VITALS: BP 150/97; PULSE 90; RESP 16; O2SAT 96; BMI 38.7
--- NOTE | 2024-11-05 16:37 | A.OFFVIS_ITS ---
HPI Data of Consult Patient: new to practice Consult date: 11/05/24 Requesting Physician: Wang Preston MD Primary Care Provider: Robert Boyle MD Consult Narrative Reason for consult: Left scapular pain myofascial History of present illness: Mr. Toussaint is a 59 year old male who presents with myofascial pain in the left thoracic paraspinous area and scapular area. This patient is currently being treated by the pain treatment center. He has undergone multiple trigger point injections and Botox injections none of which have given him long-term relief. He is looking for a second opinion and wanting to transfer care to us for evaluation and management. He is currently on gabapentin 600 mg 2 tablets 3 times a day as well as 2 types of muscle relaxers. He is also on Valium. This is given to him by his psychiatrist. Pain is affecting activities of daily life. This happened while he was working at [employer]. He has been suffering with this pain for several years. Pain seems to be myofascial in the thoracic paraspinous area and left scapular area radiating to the left shoulder. CC: Wang Preston MD [facility] Disclaimer: The information contained in this section may have been updated after the patient was seen, as this information can be updated by other users. Medical History Major depressive disorder Social History Smoking Status: Never smoker alcohol intake: never substance use type: denies use current occupational status: other Travel in the last 8 weeks?: None household members: spouse housing: house number of children: 3 caffeine: Yes Have you lived/traveled outside US in past 30 days?: No Contact w/someone who lives/traveled outside US past 30 days?: No Exposure to someone with infectious disease in past 14 days?: No Do you have a fever (greater than 100.4 F or 38 C)?: No Have you tested positive for COVID-19?: No Exposed to someone with COVID-19 in past 14 days?: No Do you have a sore throat?: No Do you have a cough?: No Do you have any weakness?: No Do you have any diarrhea?: No Are you experiencing any unusual bleeding?: No Do you have any muscle aches/pain?: No Do you have any abdominal pain?: No Are you experiencing loss of taste or smell?: No Review of Systems Review of Systems Review of systems:: pertinent systems reviewed and negative unless documented below Constitutional Constitutional: Reports system reviewed and no additional complaints, except as documented Eyes Eyes: Reports system reviewed and no additional complaints, except as documented ENT Ears, Nose, Mouth, and Throat: Reports system reviewed and no additional complaints, except as documented *Cardiovascular Cardiovascular: Reports system reviewed and no additional complaints, except as documented *Respiratory Respiratory: Reports system reviewed and no additional complaints, except as documented *Gastrointestinal Gastrointestinal: Reports system reviewed and no additional complaints, except as documented *Genitourinary Genitourinary: Reports system reviewed and no additional complaints, except as documented *Musculoskeletal Musculoskeletal: Reports back pain Integumentary/Breasts Skin/Breast: Reports system reviewed and no additional complaints, except as documented *Neurologic Neurologic: Reports system reviewed and no additional complaints, except as documented Psychiatric Psychiatric: Reports system reviewed and no additional complaints, except as documented Endocrine Endocrine: Reports system reviewed and no additional complaints, except as documented Hematologic/Lymphatic Hematologic/Lymphatic: Reports system reviewed and no additional complaints, except as documented Allergic/Immunologic Allergic/Immunologic: Reports system reviewed and no additional complaints, except as documented Meds Home Medications and Allergies Home Medications ?Medication ?Instructions ?Recorded ?Confirmed ?Type ibuprofen 600 mg tablet 600 mg PO TID Pain 12/27/17 11/05/24 History famotidine 20 mg tablet 20 mg PO TID stomach 11/27/18 11/05/24 History fluticasone propionate 50 1 spray intranasal DAILY Breathing 11/27/18 11/05/24 History mcg/actuation nasal problems spray,suspension gabapentin 100 mg capsule See Rx Instructions PO .COMPLEX 11/27/18 11/05/24 History Pain nebivolol 5 mg tablet (Bystolic) 5 mg PO DAILY bp 11/27/18 11/05/24 History omeprazole 40 mg capsule,delayed 40 mg PO DAILY GERD 11/27/18 11/05/24 History release tizanidine 4 mg capsule 4 mg PO BID PRN pain 11/27/18 11/05/24 History peg 3350-electrolytes 236 240 ml PO Q10M prep 11/09/21 11/05/24 History gram-22.74 gram-6.74 gram-5.86 gram solution dicyclomine 10 mg capsule 10 mg PO TID PRN cramps #14 caps 11/25/22 11/05/24 Rx ondansetron 4 mg disintegrating 4 mg PO Q8H PRN nausea and 11/25/22 11/05/24 Rx tablet vomiting 5 days #14 tabs diazepam 5 mg tablet 5 mg PO QHS PRN anxiety #30 tabs 06/04/23 11/05/24 Rx venlafaxine 150 mg 150 mg PO DAILY . #90 caps 10/18/24 11/05/24 Rx capsule,extended release 24 hr (Effexor XR) venlafaxine 75 mg capsule,extended 75 mg PO .COMPLEX #90 caps 10/18/24 11/05/24 Rx release 24 hr (Effexor XR) New Prescriptions to Start Prescriptions: Allergies Allergy/AdvReac Type Severity Reaction Status Date / Time No Known Allergies Allergy Verified 10/18/24 10:01 Objective Vital signs: Pulse Resp BP Pulse Ox O2 Del Method 90 16 150/97 H 96 Room Air 11/05/24 15:47 11/05/24 15:47 11/05/24 15:47 11/05/24 15:47 11/05/24 15:47 Assessment and Plan *Assessment and plan (1) Myofascial muscle pain: Status: Acute Category: Medical Code(s): M79.18 - Myalgia, other site Plan Patient does have some radicular symptoms stemming from the cervical and thoracic area. He has not had any updated imaging in the last few years. Will order a cervical and thoracic MRI to discern pathology. Once he gets a release from the pain treatment center with Dr. Simmons we will take over his gabapentin and muscle relaxers.
== END 2024-11-05 23:59 | disposition home or self-care (01) ==
LOC: SC.PAIN 15:28
PROVIDERS: PCP Internal Medicine Adolescent Medicine; Visit Provider Anesthesiology
DX: M79.18 Myalgia, other site (principal); Z73.89 Other problems related to life management difficulty
CPT/HCPCS: 99202; G0463

== ENCOUNTER 2024-11-18 14:21 | Outpatient (CLI) | payer MEDICARE, BC, SELFPAY ==
--- NOTE | 2024-11-18 14:22 | MR_ITS ---
PROCEDURE INFORMATION: Exam: MR Thoracic Spine Without Contrast Exam date and time: 11/18/2024 3:24 PM Age: 59 years old Clinical indication: Pain in thoracic spine; Additional info: Headaches, left sided shoulder and mid back pain since 2019 TECHNIQUE: Imaging protocol: Magnetic resonance imaging of the thoracic spine without contrast. COMPARISON: MR THORACIC SPINE WO CON 12/06/2019 9:11 AM FINDINGS: Vertebral body height and AP alignment is preserved. Disc desiccation. Negative for discitis/osteomyelitis. No epidural fluid collection. No pathologic cord signal cord expansion. Low-level thoracic spine degenerative disc disease without significant central canal compromise throughout. IMPRESSION: 1. No acute abnormality involving the thoracic spine. 2. Mild thoracic spine degenerative disc disease without significant central canal compromise.
--- NOTE | 2024-11-18 14:22 | MR_ITS ---
PROCEDURE INFORMATION: Exam: MR Cervical Spine Without Contrast Exam date and time: 11/18/2024 3:25 PM Age: 59 years old Clinical indication: Neck pain; Additional info: Headaches, left sided shoulder and mid back pain since 2019 TECHNIQUE: Imaging protocol: Magnetic resonance imaging of the cervical spine without contrast. COMPARISON: MR SHOULDER LEFT ARTHROGRAM 08/20/2022 2:42 PM FINDINGS: Nonspecific straightening. Mild retrolisthesis of C3 on C4, C5 on C6 and C6 on C7. Vertebral body heights are preserved. Multilevel disc desiccation with disc space narrowing. Negative for discitis/osteomyelitis. No epidural fluid collection. No pathologic cord signal or cord expansion. C2-C3: No significant central or foraminal stenosis. C3-C4: Mild disc osteophyte complex with bilateral uncinate spurring contributing to iaag-fh-alcdauxt bilateral foraminal stenosis. No central canal stenosis. C4-C5: No significant central or foraminal stenosis. C5-C6: Qcgy-ki-zmfqzvek disc osteophyte complex with bilateral uncinate spurring. Findings result in mild central canal stenosis and moderate to severe bilateral foraminal stenosis. C6-C7: Whoy-tj-avnsfgdy disc osteophyte complex with bilateral uncinate spurring and facet joint arthropathy. Findings result in mild central canal stenosis, moderate to severe right foraminal stenosis and moderate left foraminal stenosis. C7-T1: Minimal disc osteophyte complex without significant stenosis. IMPRESSION: 1. No acute abnormality involving the cervical spine. 2. Degenerative findings as above including mild central canal stenosis at C5-C6 and C6-C7. No high-grade central canal stenosis/cord compression.
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
== END 2024-11-18 23:59 | disposition home or self-care (01) ==
LOC: RAD 14:22
PROVIDERS: PCP Internal Medicine Adolescent Medicine; Visit Provider Anesthesiology
DX: M51.34 Other intervertebral disc degeneration, thoracic region (principal); M47.892 Other spondylosis, cervical region; M48.02 Spinal stenosis, cervical region
CPT/HCPCS: 72141; 72146

== ENCOUNTER 2024-11-29 14:35 | Outpatient (POV) | payer MEDICARE, BC, SELFPAY ==
[2024-11-29 14:53] VITALS: BP 143/107; BP 155/105; PULSE 77; RESP 16; O2SAT 96; BMI 39.9
--- NOTE | 2024-11-29 16:19 | EXP.PAIN.SOA ---
[facility] Disclaimer: The information contained in this section may have been updated after the patient was seen, as this information can be updated by other users. Medical History Major depressive disorder Social History Smoking Status: Never smoker alcohol intake: never substance use type: denies use current occupational status: other Travel in the last 8 weeks?: None household members: spouse housing: house number of children: 3 caffeine: Yes PM Subjective & Objective Subjective Subjective:: Patient is a pleasant 59-year-old male who presents today for follow-up of cervical and thoracic MRI. Today he rates his pain a 7 out of 10. Patient denies any new falls or injuries. He does state he continues to have the chronic pain there that radiates down his left shoulder. Patient does state that he has numbness and tingling into his bilateral hands however it is hard to determine whether or not it is related to his neck or his longstanding history of carpal tunnel and elbow surgeries. Patient states the pain is unbearable and does interfere with his ability to perform activities of daily living such as cooking and cleaning. Patient has tried trigger point injections from previous providers however those seem to did not provide any additional relief. He ended up trying Botox and this did help significantly however it stopped being covered by his insurance. Patient has tried oral medications, heat and ice, dry needling, TENS unit physical therapy and continued at home stretching and exercise for longer than 12 weeks. Patient has also tried chiropractor therapy with no additional changes. Patient is currently prescribed [id number] mg 3 times a day along with tizanidine 4 mg 2 tablets at bedtime. He denies any side effects. At our last visit it was discussed regarding our office taking over this medication. Patient states that they were supposed to send something. His Carlos has been reviewed and is appropriate. Review of Systems: General: No recent weight changes, no fever, no sleep disturbances Respiratory: No cough, no shortness of air, no recurring pulmonary infections Cardiovascular/peripheral vascular: No chest pain, no palpitations, no edema, no shortness of breath Gastrointestinal: No new onset incontinence, normal bowel movements reported Genitourinary: No new onset incontinence Musculoskeletal: Neck pain, left shoulder pain, bilateral hand numbness tingling Psychiatric: [Normal mood/affect] Neurological: [Denies weakness in extremities], [denies balance issues] Pain at rest (0-10 scale): 7 Objective Objective:: Physical Exam: General: Alert and oriented x3, no acute distress, pleasant and cooperative Lungs: Respirations even and unlabored, symmetrical chest expansion Eyes: PERRL Musculoskeletal: Flexion and extension of cervical [spine] somewhat guarded secondary to pain, [antalgic gait noted] positive Spurling's test Neurological: Speech clear, no gross sensory deficit Has patient had previous pain injection?: No Conservative treatment options previously tried: Home exercise plan Length of treatment: Longer than 12 weeks, Physical Therapy Length of treatment: Made worse and Chiropractor Length of treatment: Past Meds Home Medications and Allergies Home Medications ?Medication ?Instructions ?Recorded ?Confirmed ?Type ibuprofen 600 mg tablet 600 mg PO TID Pain 12/27/17 11/29/24 History famotidine 20 mg tablet 20 mg PO TID stomach 11/27/18 11/29/24 History fluticasone propionate 50 1 spray intranasal DAILY Breathing 11/27/18 11/29/24 History mcg/actuation nasal problems spray,suspension gabapentin 100 mg capsule See Rx Instructions PO .COMPLEX 11/27/18 11/29/24 History Pain nebivolol 5 mg tablet (Bystolic) 5 mg PO DAILY bp 11/27/18 11/29/24 History omeprazole 40 mg capsule,delayed 40 mg PO DAILY GERD 11/27/18 11/29/24 History release tizanidine 4 mg capsule 4 mg PO BID PRN pain 11/27/18 11/29/24 History peg 3350-electrolytes 236 240 ml PO Q10M prep 11/09/21 11/29/24 History gram-22.74 gram-6.74 gram-5.86 gram solution dicyclomine 10 mg capsule 10 mg PO TID PRN cramps #14 caps 11/25/22 11/29/24 Rx ondansetron 4 mg disintegrating 4 mg PO Q8H PRN nausea and 11/25/22 11/29/24 Rx tablet vomiting 5 days #14 tabs venlafaxine 150 mg 150 mg PO DAILY . #90 caps 10/18/24 11/29/24 Rx capsule,extended release 24 hr (Effexor XR) venlafaxine 75 mg capsule,extended 75 mg PO .COMPLEX #90 caps 10/18/24 11/29/24 Rx release 24 hr (Effexor XR) diazepam 5 mg tablet 5 mg PO QHS PRN anxiety #14 tabs 11/16/24 11/29/24 Rx New Prescriptions to Start Prescriptions: Allergies Allergy/AdvReac Type Severity Reaction Status Date / Time No Known Allergies Allergy Verified 11/15/24 11:17 Assessment and Plan *Assessment and plan (1) Cervical radiculopathy at C5: Status: Acute Category: Medical Code(s): M54.12 - Radiculopathy, cervical region (2) Subacromial bursitis of left shoulder joint: Status: Acute Category: Medical Code(s): M75.52 - Bursitis of left shoulder (3) Degenerative disc disease, cervical: Status: Acute Category: Medical Code(s): M50.30 - Other cervical disc degeneration, unspecified cervical region Plan I did review over with the patient regarding his MRIs of both his cervical and thoracic spine. Patient did have significant findings there at his cervical spine with spinal stenosis more prominent at the C5-C6 level. Patient is experiencing worsening pain in their neck with radiating tingling sensations into their bilateral hands. Patient did have limited range of motion of his cervical spine with a positive Spurling's test. I did discuss with the patient that I do believe they would benefit from a cervical epidural steroid injection. Risk and benefits were discussed with patient and they would like to proceed forward with this plan of care. Patient has tried and failed conservative therapy including oral medications, heat and ice, topicals, physical therapy and chiropractor therapy as well as at home stretching exercise for longer than 12 weeks that was physician guided. Patient will be scheduled for a LINDSEY C5-C6 under fluoroscopy. Patient denies any blood thinners. I will also send in a 3-month supply of the gabapentin and tizanidine with the plan to take over these prescriptions. Patient agrees with this plan of care. Patient has been instructed to contact the clinic with any concerns before the next appointment. Dr. Preston has reviewed this note and agrees with this plan of care. This note was dictated using voice recognition software and make contain errors or omissions. All injections are used with Lidocaine, Bupivacaine and dexamethasone unless otherwise stated as a diagnostic in which it has no steroid. Occasionally urine drug screen is needed to verify patient's compliance with our office pain contract. This is ordered based off specific treatments related to chronic pain with the potential to abuse certain medications.
== END 2024-11-29 23:59 | disposition home or self-care (01) ==
PROVIDERS: PCP Internal Medicine Adolescent Medicine; Visit Provider Nurse Practitioner Family
DX: M50.121 Cervical disc disorder at C4-C5 level with radiculopathy (principal); M75.52 Bursitis of left shoulder; Z79.899 Other long term (current) drug therapy
CPT/HCPCS: 99212; G0463

== ENCOUNTER 2024-12-21 08:42 | Day surgery (SDC) | payer MEDICARE, BC, SELFPAY ==
[2024-12-21 08:52] VITALS: BP 138/83; PULSE 74; RESP 16; O2SAT 98; BMI 39.4
[2024-12-21] MEDS: DEXAMETHASONE 10MG/ML 1ML VIAL 10 MG (09:20)
[2024-12-21] MEDS: IOPAMIDOL-200 (41%);10ML VIAL 3 ML IV (09:21)
[2024-12-21 09:23] VITALS: BP 128/80; BP 137/88; PULSE 65; PULSE 71; RESP 18; O2SAT 96; O2SAT 98
[2024-12-21 09:25] VITALS: BP 137/88; PULSE 65; RESP 18; O2SAT 96
--- NOTE | 2024-12-21 09:25 | P.PCN_ITS ---
Procedure Date: 12/21/24 Time: 09:15 Anesthesiologist:: Raji Lott CRNA Complications:: None Pre-procedure Diagnosis:: Degenerative disc cervical spine multilevels. Cervical radiculopathy. Disc bulge C5-6, cervical spinal stenosis. Post-procedure Diagnosis:: Same. Indications for Procedure:: Patient is a very pleasant 59-year-old male who comes our clinic today for cervical epidural steroid injection. Patient describes posterior cervical neck pain as constant, dull, aching. Patient also reports radicular symptoms into the bilateral hands. He rates his pain 7/10. Procedure Details:: Procedure:Cervical epidural steroid injection Informed consent was obtained and the risks and benefits of the procedure were explained to the patient. The patient was taken to the procedure room and noninvasive monitors placed, including noninvasive blood pressure cuff and pulse oximeter. The neck was prepped using Chloraprep as a cleansing solution. The C6- C7 interspace was viewed using fluroscopy. The skin and subcutaneous tissues were anesthetized using lidocaine 1.5% and a 25-gauge needle. After this an 18- gauge Touhy epidural needle was placed into the C6-C7 interspace under fluroscopy guidance and advanced using loss of resistance to air until the epidural space was encountered. After confirmation of needle placement in the epidural space using contrast dye, a solution containing normal saline, 2 mL and dexamethasone 10 mg was incrementally injected into the cervical epidural space.~ The patient tolerated the procedure well with no complications. The patient was observed in the Pain Clinic and then discharged home neurolog ically intact. Plan and Disposition:: Patient was discharged without incident.
== END 2024-12-21 09:23 | disposition home or self-care (01) ==
PROVIDERS: PCP Internal Medicine Adolescent Medicine; Visit Provider Nurse Anesthetist, Certified Registered
DX: M50.10 Cervical disc disorder with radiculopathy, unspecified cervical region (principal); M48.02 Spinal stenosis, cervical region; F32.9 Major depressive disorder, single episode, unspecified; Z79.899 Other long term (current) drug therapy
CPT/HCPCS: 64479; J1100; Q9966

== ENCOUNTER 2025-01-05 14:09 | Outpatient (POV) | payer MEDICARE, BC, SELFPAY ==
--- OUTSIDE RECORDS SUMMARY | 2025-01-05 14:12 | XMS_ITS | Encounter Summary ---
Author Organization [employer] ([place], [place], [place], [place]) Address [address] [place] [address] Care Team Providers Care Tar Roofer Name Role Phone Unavailable Primary Care Provider Unavailabl e Encounter Details Date Type Department Care Team (Late st Contact Info) Description 08/09/2019 Transcribed Document [facility] [place] [facility] [place] [address] ProviderBailey MD [address], [place] [id number] Social History Tobacco Use Types Packs/Day Years Used Date Smoking Tobacco: Never Assessed Sex and Gender Information Value Date Recorded Sex Assigned at Male 12/25/2021 6:37 PM CDT Legal Sex Male 6:37 PM CDT Gender Identity Male 12/25/2021 6:37 PM CDT Sexual Orientation Not on file documented as of this encounter Miscellaneous Notes * Cerner Conversion Note - Bailey Varela MD - 08/09/2019 7:11 AM PERSONNEL QUALITY ASSURANCE AUDITOR DATE OF ADMISSION: 08/06/2019 HISTORY OF PRESENT ILLNESS: This is a 53-year-old male with a chief complaint of chronic back and shoulder and severe thoracic muscle spasm after he is status post his injury in January 2017, came today for followup. The patient has been following up in our clinic, and we were able to control some of his pain with multiple interventional treatments regarding thoracic epidural steroid injection, trigger point injection, and Botox. He is currently taking his gabapentin 600 mg take 2 of them in the morning, 1 at noon, and 2 at night in addition to baclofen 10 mg 3 times a day. He denied any major problem or side effects to his medication which include toxic effects, sedation, driving problem, or GI problem. REVIEW OF SYSTEMS: Constitutional, respiratory, cardiovascular, ophthalmology, gastrointestinal, genitourinary, ENT, musculoskeletal, integumentary, neurology, psychiatry, endocrine, hematology were not changed from his last visit, July 02, 2019. PHYSICAL EXAMINATION: VITAL SIGNS: Blood pressure 140/89, heart rate is 72, respirations 16, saturation 96%, temperature 97.6. Pain level 6. Hours of sleep 5. No change in physical and neurological exam. Muscle tone power sensory and deep tendon reflexes were unchanged. The nurse's notes, vital signs, and medication were reviewed and evaluated. No sign of impairment or toxicity to medicine. The patient psych evaluation, urine drug screen, and JODIE were appropriate for taking opioid medication. ASSESSMENT: 1. Chronic mid and upper back pain. The patient is status post work-related injury in January 2017. 2. Multiple myofascial pain. 3. Severe thoracic muscle spasm. 4. Thoracic radiculopathy. 5. Thoracic spondylosis. 6. Spasticity and muscle spasm of paravertebral thoracic muscle and rhomboid major and minor. 7. Long-term use of gabapentin and high-risk medication. PLAN: 1. The patient has been fairly well controlled on current medication. The patient has a good compliance with pain clinic regulation in regard to urine drug screen, JODIE, psych evaluation. We spent more than half of the time discussing the risks, benefits of the medication, how to keep it in a safe place, not to share with other people, not to mix with alcohol, or self-escalate it. 2. I am going to start the patient on ibuprofen 600 mg 3 times a day to help his inflammatory irritation. However, I discussed with him side effects and complication related to that medicine. 3. Baclofen 10 mg 3 times a day. 4. Gabapentin 1200 mg in the morning, 600 mg at noon, and 1200 mg at night. 5. I encouraged the patient to continue stretching and home exercise therapy. 6. I am going to see the patient after 1 month to re-evaluate him. /[id number] Farzad Simmons MD, MAUREEN Pain Certified KR/VERA / GINETTE / MODL CC: MD Robert Ponce MD documented in this encounter Plan of Treatment Not on file documented as of this encounter Visit Diagnoses Not on filedocumented in this encounter
--- OUTSIDE RECORDS SUMMARY | 2025-01-05 14:12 | XMS_ITS | Encounter Summary ---
Author Organization [employer] ([place], [place], [place], [place]) Address [address] [place] [address] Care Team Providers Care Desizing Machine Back Tender Name Role Phone Unavailable Primary Care Provider Unavailabl e Encounter Details Date Type Department Care Team (Late st Contact Info) Description 08/11/2019 Transcribed Document [facility] [place] [facility] [place] [address] ProviderBailey MD [address], [place] [id number] Social History Tobacco Use Types Packs/Day Years Used Date Smoking Tobacco: Never Assessed Sex and Gender Information Value Date Recorded Sex Assigned at Male 12/25/2021 6:37 PM CDT Legal Sex Male 6:37 PM CDT Gender Identity Male 12/25/2021 6:37 PM CDT Sexual Orientation Not on file documented as of this encounter Miscellaneous Notes * Cerner Conversion Note - Bailey Varela MD - 08/11/2019 7:08 AM FORKLIFT TECHNICIAN DATE OF PROCEDURE: 08/10/2019 SURGEON: Farzad Simmons MD, MAUREEN Pain Certified PROCEDURE: Botox injection to muscle denervation under ultrasound guidance. GROUPS OF MUSCLE: Left trapezius muscle, left rhomboid minor and major, left paravertebral thoracic muscle group. SEDATION: We did not give any sedation for this procedure. DIAGNOSIS: Severe myofascial pain unresponsive to conservative measure. PROCEDURE SUMMARY: After explaining the risks and benefits of the procedure, an informed consent was obtained. Botox A was prepared by mixing 10 mL of preservative free normal saline into each vial of 100 units of Botox A. Prior to beginning the procedure, a timeout was performed. The areas were prepped with alcohol in a sterile fashion. Using a 25 gauge one and 1/2 inch needle under Ultrasound guidance using Straight probe and in-Line approach. After negative aspiration, I injected the following: Left trapezius muscle, rhomboid major and left, paravertebral thoracic muscle group using the ultrasound guidance. A total of 3 muscle groups. The patient tolerated the procedure well and without incident. The patient was discharged from the clinic in stable condition, neurologically intact and with the appropriate discharge instructions. The patient has been instructed to contact my office with any questions or difficulties. The patient will be scheduled to return for a repeat Botox injection every 3 months. Pre and post procedure pain levels are documented in the chart. I encourage the patient to continue physical therapy for muscle stretching and deep tissue mobilization to help more to relive severe muscle spasm. Preprocedure pain level and postprocedure pain level is documented in the chart. PLAN: We are going to continue with, 1. Gabapentin 600 mg 2 in the morning, 1 at noon, 2 at night. 2. Baclofen 10 mg 3 times a day. 3. Ibuprofen 600 mg 3 times a day. 4. I am going to see the patient after 1 month to re-evaluate him. /[id number] Farzad Simmons MD, MAUREEN Pain Certified GINETTE/VERA / GINETTE / MANJU /[id number] documented in this encounter Plan of Treatment Not on file documented as of this encounter Visit Diagnoses Not on filedocumented in this encounter
--- OUTSIDE RECORDS SUMMARY | 2025-01-05 14:12 | XMS_ITS | Encounter Summary ---
Author Organization [employer] ([place], [place], [place], [place]) Address [address] [place] [address] Care Team Providers Care Custodian Athletic Equipment Name Role Phone Unavailable Primary Care Provider Unavailabl e Encounter Details Date Type Department Care Team (Late st Contact Info) Description 07/02/2019 Transcribed Document [facility] [place] [facility] [place] [address] ProviderBailey MD [address], [place] [id number] Social History Tobacco Use Types Packs/Day Years Used Date Smoking Tobacco: Never Assessed Sex and Gender Information Value Date Recorded Sex Assigned at Male 12/25/2021 6:37 PM CDT Legal Sex Male 6:37 PM CDT Gender Identity Male 12/25/2021 6:37 PM CDT Sexual Orientation Not on file documented as of this encounter Miscellaneous Notes * Cerner Conversion Note - Bailey Varela MD - 07/02/2019 1:12 PM [employer] DATE OF ADMISSION: 07/02/2019 HISTORY OF PRESENT ILLNESS: This is a 53-year-old male with a chief complaint of chronic mid back pain with chronic muscle spasm and chronic left thigh pain for several years' duration who is here today for a followup visit. The patient is following up for medication refills of his gabapentin. The patient says that he is also taking his Flexeril. He reports the Flexeril does make him somewhat sleepy as well as the gabapentin, however, without the medications, he does have severe pain. The patient says that he uses the tizanidine at bedtime because it is even more sedating for him. He says that when he takes the medication that he does not drive just for his own safety. However, he says he does get some help and relief from that. The patient says that he did stop taking the Elavil and Prozac due to a tremor that started in his right hand. The patient says that he is having significant muscle spasm today in the left mid and upper back as well as a headache. He reports his pain is a stabbing, aching sensation. He does use heat and cold in addition to TENS unit and massage as well as taking his medication to help with his pain. The patient had previously been also doing trigger point injections which gave him some limited relief, however, there was no longstanding relief from that. The patient says that he has been trying to get his insurance to approve Botox for him since that would be the next line of treatment for his muscle spasm as recommended by Dr. Simmons. The patient says that he has also got recommendation for that from his physician, Dr. Solano, as well as Dr. Chu Boyle who have been treating the patient in regard to this as well. The patient says he is very discouraged because he feels like that would give him some relief and help him to be more functional. He says that the pain is so impactful on his life that he has a good deal of stress from that. The patient previously had had Botox with great success back in 2018. He would like to have that repeated again if the insurance would allow it. The patient says that other than some sleepiness he does not have adverse effects from his medications including toxic effect, sedation, driving problems, or GI problems. REVIEW OF SYSTEMS: The patient has developed a tremor in the right hand and is having medication changes per his neurologist. Constitutional, respiratory, cardiovascular, ophthalmology, gastrointestinal, genitourinary, ENT, musculoskeletal, integumentary, neurology, psychiatry, endocrine, hematology were not changed from his last visit on May 14, 2019. PHYSICAL EXAMINATION: VITAL SIGNS: Blood pressure 120/76, weight 300, height 69 inches, heart rate 88, respiratory rate 16, O2 saturation 97%, temperature 96.6. Pain level 6. Hours of sleep 5. No change in physical and neurological exam. Muscle tone, power, sensory, and deep tendon reflexes were unchanged. The nurse's notes, vital signs, and medication were reviewed and evaluated. No sign of impairment or toxicity to medicine. The patient psych evaluation, urine drug screen, and JODIE were appropriate for taking opioid medication. ASSESSMENT: 1. Chronic mid and upper back pain status post work injury in January 2017. 2. Multiple myofascial pain. 3. Severe thoracic muscle spasm. 4. Thoracic radiculopathy. 5. Thoracic spondylosis. 6. Spasticity and muscle spasm to the left paravertebral thoracic muscle and rhomboid major and minor. 7. Long-term use of gabapentin. PLAN: 1. The patient has been fairly [...] mix with alcohol, or self-escalate it. 2. We are going to continue gabapentin 600 mg 2 tablets in the morning, 2 tablets at bedtime, and 1 tablet at noon. 3. We are going to try again with the recommendations of the other physicians as well as Dr. Simmons to get Botox approved for the patient in regard to the severe spasm that he is having since that has helped him so much in the past for longer standing relief without the steroids and the adverse effects of that. 4. The patient has discontinued amitriptyline. 5. Continue Lidoderm patches 5% on for 12 hours, off for 12 hours daily. 6. We are going to try the patient on baclofen instead of Flexeril 10 mg 3 times daily to see if that is effective more so for his pain. If not, we will restart the Flexeril. 7. We are going to see the patient back in 1 month to re-evaluate. 8. The assessment and plan for today's visit have been reviewed by Dr. Simmons, however, I have prescribed the medications for this patient's treatment plan today. /[id number] DICTATED BY: Theresa Thibodeaux APRN for Farzad Simmons MD, MAUREEN Pain Certified Farzad Simmons MD, MAUREEN Pain Certified ADAM/AQ / ADAM / MODL CC: MD Robert Ponce MD documented in this encounter Plan of Treatment Not on file documented as of this encounter Visit Diagnoses Not on filedocumented in this encounter
--- OUTSIDE RECORDS SUMMARY | 2025-01-05 14:13 | XMS_ITS | Encounter Summary ---
Author Organization [employer] ([place], [place], [place], [place]) Address [address] [place] [address] Care Team Providers Care Senior Qa Analyst Name Role Phone Unavailable Primary Care Provider Unavailabl e Encounter Details Date Type Department Care Team (Late st Contact Info) Description 01/08/2019 Transcribed Document [facility] [place] [address] ProviderBailey MD [facility] [place], [place] [id number] Social History Tobacco Use Types Packs/Day Years Used Date Smoking Tobacco: Never Assessed Sex and Gender Information Value Date Recorded Sex Assigned at Male 12/25/2021 6:37 PM CDT Legal Sex Male 6:37 PM CDT Gender Identity Male 12/25/2021 6:37 PM CDT Sexual Orientation Not on file documented as of this encounter Miscellaneous Notes * Cerner Conversion Note - Bailey Varela MD - 01/08/2019 12:19 PM CDT DATE OF ADMISSION: 01/08/2019 HISTORY OF PRESENT ILLNESS: This is a 53-year-old male with a chief complaint of chronic mid and upper back pain for several years' duration, who is here today for followup visit. The patient reports that he continues to have pain in the left mid thoracic region. The patient says that the Flector patches did help him, but they were not being approved by his insurance. The patient says he continues to have a stabbing and throbbing sensation in his back that is moderate. The patient says the pain is relieved somewhat with the gabapentin 600 mg 4 times daily in addition to heat, cold, and TENS unit. The patient reports that he does plan to have some dry needling on the of this month. The patient denies any adverse effects from his medication including toxic effects, sedation, driving problems, or GI problems. The patient says also that he is going to mediation in regards to his injury to see what they will be able to do for him ongoing. The patient reports hypersensitivity and pain with touch of the area. REVIEW OF SYSTEMS: Constitutional, Respiratory, Cardiovascular, Ophthalmology, Gastrointestinal, Genitourinary, ENT, Musculoskeletal, Integumentary, Neurology, Psychiatry, Endocrine, Hematology were not changed from his last visit on December 11, 2018. PHYSICAL EXAMINATION: Blood pressure 128/83, weight 290, height 69 inches, heart rate 82, respiratory rate 16, O2 sat 95%, temperature 96.8. Pain level 5. Hours of sleep 7.5. No change in physical and neurological exam. Muscle tone power sensory and deep tendon reflexes were unchanged. The nurse notes, vital signs, and medication were reviewed and evaluated. No sign of impairment or toxicity to medicine. The patient psych evaluation, urine drug screen, and JODIE were appropriate for taking opioid medication. ASSESSMENT: 1. Chronic mid and upper back pain status post work injury in January 2017. 2. Multiple myofascial pain and muscle spasm. 3. Thoracic radiculopathy. 4. Thoracic spondylosis. 5. Long-term use of high-risk medication. Patient is on gabapentin. PLAN: 1. The patient has been fairly well controlled on current medication. The patient has a good compliance with pain clinic regulation in regard urine drug screen JODIE Psych evaluation. We spent more than half of the time discussing the risks, benefits of the medication, how to keep it in safe place, not to share with other people, not to mix with alcohol, or self-escalate it. 2. Continue gabapentin 600 mg 4 times daily. 3. We are going to provide the patient some additional samples of the Flector patches since that was helping him with his pain. 4. I have encouraged the patient to try some [id number] 4% lidocaine patches or ointment to see if that helps him as well. 5. I have encouraged the patient to discuss with his physical therapist, possibly doing some desensitization therapy with him. 6. Continue tizanidine 4 mg tablets 2 at bedtime. 7. Continue amitriptyline 25-100 mg at bedtime. 8. Continue Robaxin 500 mg twice daily. 9. We are going to see the patient back after one month to re-evaluate. 10. I have encouraged the patient to continue home exercises that include walking and stretching as well as engage in healthy diet and lifestyle. 11. The assessment and plan for today's visit has been reviewed by Dr. Simmons; however, medications have been prescribed by myself for this patient's treatment plan today. Dictated By: Theresa Thibodeaux APRN For Farzad Simmons M.D., MAUREEN Pain Certified Farzad Simmons M.D., MAUREEN Pain Certified Dict: 01/08/2019 12:19:22 Trans: 01/08/2019 13:39:43 CC1: Farzad Simmons M.D., MAUREEN Pain Certified CC2: Dr. Robert Boyle documented in this encounter Plan of Treatment Not on file documented as of this encounter Visit Diagnoses Not on filedocumented in this encounter
--- OUTSIDE RECORDS SUMMARY | 2025-01-05 14:13 | XMS_ITS | Encounter Summary ---
Author Organization [employer] ([place], [place], [place], [place]) Address [address] [place] [address] Care Team Providers Care Tractor Engine Assembler Name Role Phone Unavailable Primary Care Provider Unavailabl e Encounter Details Date Type Department Care Team (Late st Contact Info) Description 06/18/2018 Transcribed Document [facility] [place] Family Medicine [facility] [place] [address] ProviderBailey MD [address], [place] [id number] Social History Tobacco Use Types Packs/Day Years Used Date Smoking Tobacco: Never Assessed Sex and Gender Information Value Date Recorded Sex Assigned at Male 12/25/2021 6:37 PM CDT Legal Sex Male 6:37 PM CDT Gender Identity Male 12/25/2021 6:37 PM CDT Sexual Orientation Not on file documented as of this encounter Miscellaneous Notes * Cerner Conversion Note - Bailey Varela MD - 06/18/2018 2:44 PM AVIATION MEDICINE SPECIALIST DATE OF ADMISSION: 06/18/2018 HISTORY OF PRESENT ILLNESS: This is a 52-year-old male with a chief complaint of chronic mid back pain for the last year. The patient presents today for a followup visit. The patient did have thoracic epidural steroid injection and trigger point injections completed on 06/03/2018. The patient states he was unable to get any relief with thoracic epidural steroid injection. However, he states that he does have some ongoing relief with the trigger point injection. The patient states he does continue to have mid back pain more on the left side versus the right. He describes it as stabbing and dull pain. The patient states he is using heat and cold to try to help alleviate his pain. He states he is going to physical therapy also to try to help alleviate the pain. The patient states he is just now started filling out paper for disability. He states he has met with an environmental attorney, but does not have much more information than that at that time. However, there was a note in the chart from 06/08/2018, about a phone call that was placed to this clinic. Dr. Chiang, Orthopedic surgeon was wanting to speak with Dr. Simmons about this patient and his treatment plan for disability support. However, the patient states that he does not know who the physician is and does not want any information be given to that physician as only Dr. Magnus Solano, who is the only one who does his orthopedic issues. The patient states he has plenty of medication and refills for his gabapentin, Robaxin, tizanidine. He states he does continue to take these medications with good relief. He states that he does not have any side effects with these medications to include excess sedation, driving problems, or GI problems. The patient's JODIE was reviewed and found to be appropriate at today's office visit. The patient has been compliant with his urine drug screening. REVIEW OF SYSTEMS: Constitutional, Respiratory, Cardiovascular, Ophthalmology, Gastrointestinal, Genitourinary, ENT, Musculoskeletal, Integumentary, Neurology, Psychiatry, Endocrine, Hematology were not changed from 06/03/2018. PHYSICAL EXAMINATION: Blood pressure 135/81, weight 290 pounds, height 5 feet 9 inches, heart rate 70, respiratory rate 16, O2 saturation 97% on room air, temperature 96.8. Hours of sleep 7, pain 4/10. No change in physical and neurological exam. Muscle tone power sensory and deep tendon reflexes were unchanged. The nurse notes, vital signs, and medication were reviewed and evaluated. No sign of impairment or toxicity to medicine. The patient psych evaluation, urine drug screen, and JODIE were appropriate for taking opioid medication. ASSESSMENT: 1. Chronic mid and upper back pain secondary to work injury in January 2017. 2. Multiple myofascial pain and muscle spasms, that has not been relieved by conservative measures. 3. Symptoms correlated with upper thoracic spondylosis. 4. Symptoms correlated with thoracic radiculopathy. PLAN: 1. The patient had a thoracic epidural steroid injection and trigger point injections completed on 06/03/2018. The patient was unable to get any relief with thoracic epidural steroid injection, but states he did get some relief with the trigger point injections. He states the trigger point injections are given him ongoing relief. 2. The patient states that he has plenty of gabapentin at home as he does not need a prescription today. 3. Continue Robaxin 500 mg twice a day. The patient states he has refills at home. 4. Continue tizanidine 4 mg 2 tablets at bedtime, has refills at home. 5. The patient does continue to use a compound cream 4 times a day for pain. 6. The patient has been fairly well controlled [...] to mix with alcohol, or self-escalate it. 7. The patient is going to follow up in one month for re-evaluation and medication management. 8. The assessment and plan for today's visit was reviewed by Dr. Simmons. However, there were no medications prescribed today. Dictated By: Christianne Walsh APRN For Farzad Simmons M.D., MAUREEN Pain Certified Farzad Simmons M.D., MAUREEN Pain Certified Dict: 06/18/2018 14:44:37 Trans: 06/18/2018 17:37:56 CC1: Farzad Simmons M.D., MAUREEN Pain Certified CC2: Robert Sharma M.D. CC3: Marc Solano M.D. Electronically signed by Efraín [facility] Conversion Cytometry Technologist Cerner at 10/14/2022 8:35 AM CDT documented in this encounter Plan of Treatment Not on file documented as of this encounter Visit Diagnoses Not on filedocumented in this encounter
--- OUTSIDE RECORDS SUMMARY | 2025-01-05 14:13 | XMS_ITS | Encounter Summary ---
Author Organization [employer] ([place], [place], [place], [place]) Address [address] [place] [address] Care Team Providers Care Park Warden Name Role Phone Unavailable Primary Care Provider Unavailabl e Encounter Details Date Type Department Care Team (Late st Contact Info) Description 11/11/2019 Transcribed Document [facility] [place] Family Medicine [facility] [place] [address] ProviderBailey MD [address], [place] [phone] Social History Tobacco Use Types Packs/Day Years Used Date Smoking Tobacco: Never Assessed Sex and Gender Information Value Date Recorded Sex Assigned at Male 12/25/2021 6:37 PM CDT Legal Sex Male 6:37 PM CDT Gender Identity Male 12/25/2021 6:37 PM CDT Sexual Orientation Not on file documented as of this encounter Miscellaneous Notes * Cerner Conversion Note - Bailey Varela MD - 11/11/2019 10:14 AM CDT DATE OF PROCEDURE: SURGEON: Farzad Simmons MD, MAUREEN Pain Certified PROCEDURE: Botox injection to muscle denervation under ultrasound guidance. DIAGNOSIS: Severe myofascial pain unresponsive to conservative measure. GROUPS OF MUSCLE: Three groups of muscle. Left paravertebral thoracic muscle group, left intercostal muscle group from third intercostal to sixth. SEDATION: We did not give any sedation. PREPROCEDURE PAIN LEVEL: 8/10. POSTPROCEDURE PAIN LEVEL: 8/10. PROCEDURE SUMMARY: After explaining the risks and [...] approach. After negative aspiration, I injected the following to left paravertebral thoracic muscle group, left intercostal muscle group from third intercostal to sixth(the/a total of three muscle groups.) The patient tolerated the procedure well and [...] levels are documented in the chart. I encouraged the patient to continue physical therapy for muscle stretching and deep tissue mobilization to help more to relieve severe muscle spasm. Pre-procedure pain level and post-procedure pain levels are documented in the chart. PLAN: We are going to continue with gabapentin 600 mg take 2 of them 3 times a day and baclofen take 10 mg twice a day, tizanidine take 4 mg one at night, ibuprofen 600 mg 3 times a day. I am going to see the patient after one month to re-evaluate. We screen the patient for sign and symptoms for Covid 19 before bring the patient to the clinic /[id number] Farzad Simmons MD, MAUREEN Pain Certified GINETTE/VERA / KR / MODL /[id number] documented in this encounter Plan of Treatment Not on file documented as of this encounter Visit Diagnoses Not on filedocumented in this encounter
--- OUTSIDE RECORDS SUMMARY | 2025-01-05 14:13 | XMS_ITS | Encounter Summary ---
Author Organization [employer] ([place], [place], [place], [place]) Address [address] [place] [address] Care Team Providers Care Director Of Event Sales Name Role Phone Unavailable Primary Care Provider Unavailabl e Encounter Details Date Type Department Care Team (Late st Contact Info) Description 07/17/2018 Transcribed Document [facility] [place] [address] [place] [address] ProviderBailey MD [address], [place] [id number] Social History Tobacco Use Types Packs/Day Years Used Date Smoking Tobacco: Never Assessed Sex and Gender Information Value Date Recorded Sex Assigned at Male 12/25/2021 6:37 PM CDT Legal Sex Male 6:37 PM CDT Gender Identity Male 12/25/2021 6:37 PM CDT Sexual Orientation Not on file documented as of this encounter Miscellaneous Notes * Cerner Conversion Note - Bailey Varela MD - 07/17/2018 9:01 AM HAT STEAMER DATE OF ADMISSION: 07/17/2018 HISTORY OF PRESENT ILLNESS: This is a 52 years old male with a chief complaint of chronic mid and upper back pain of several years' duration, who came today for follow up. The patient mentioned that his mid and upper left back is doing better after multiple Botox and trigger point injection so far as well as there is thoracic epidural steroid injection. However, he woke up recently with more sensitive and painful lower extremities and he saw Dr. Solano who reviewed with him his gabapentin and he mentioned to him to talk to us more about that. He mentioned that he is taking the gabapentin 400 mg 4 times a day and he denied any major side effects to his medication, which include the toxic effects, sedation, driving problem, or GI problem. REVIEW OF SYSTEMS: Constitutional, Respiratory, Cardiovascular, Ophthalmology, Gastrointestinal, Genitourinary, ENT, Musculoskeletal, Integumentary, Neurology, Psychiatry, Endocrine, Hematology were not changed from his last visit on June 18, 2018. PHYSICAL EXAMINATION: VITAL SIGNS: Blood pressure 131/81, heart rate 68, respirations 16, saturation 96%, temperature 96.7. Pain level 4. Hours of sleep five to five and a half. No change in physical and neurological exam. Muscle tone power sensory and deep tendon reflexes were unchanged. The nurse notes, vital signs, and medication were reviewed and evaluated. No sign of impairment or toxicity to medicine. The patient psych evaluation, urine drug screen, and JODIE were appropriate for taking opioid medication. We did chronic pain psychology followup in our clinic with COMM test, which showed the patient has mild to moderate risk to continue his opioid medication. The patient signed new contract agreement with us in regard to controlled medicine for 2019. ASSESSMENT: 1. Chronic mid and upper back pain. Patient is status post work injury in January 2017. 2. Multiple myofascial pain and muscle spasm. 3. Thoracic radiculopathy. 4. Thoracic spondylosis. PLAN: 1. I had a lengthy discussion with the patient in regard to his condition. The patient sounds more recently of muscle spasm down to his lower extremity. He does not think that tizanidine he has taken at night has aggravated his pain. He mentioned these symptoms started a month or two months recently. He is not sure of whether the thoracic epidural steroid injection help with his leg since he has those symptoms after his last epidural injection. I am going to try to change tizanidine from 4 mg at night to baclofen 10 mg at night to see if that would give him better help and relaxation for his muscle and keep the Robaxin as 750 mg twice a day during the day. 2. Continue with gabapentin 400 mg 4 times a day. 3. Encourage the patient to continue physical therapy. 4. We will schedule him to have repeat thoracic epidural steroid injection if the muscle relaxant does not help in him or we might increase his gabapentin. 5. I am going to see the patient after one month to re-evaluate him. Farzad Simmons M.D., MAUREEN Pain Certified Dict: 07/17/2018 09:01:19 Trans: 07/17/2018 14:23:08 CC1: Farzad Simmons M.D., MAUREEN Pain Certified CC2: Kvng Solano MD CC3: Robert Boyle MD Electronically signed by Efraín, [facility] Conversion Shelf Drier Operator Cerner at 10/14/2022 8:36 AM CDT documented in this encounter Plan of Treatment Not on file documented as of this encounter Visit Diagnoses Not on filedocumented in this encounter
--- OUTSIDE RECORDS SUMMARY | 2025-01-05 14:13 | XMS_ITS | Encounter Summary ---
Author Organization [employer] ([place], [place], [place], [place]) Address [address] [place] [address] Care Team Providers Care Unemployment Inspector Name Role Phone Unavailable Primary Care Provider Unavailabl e Encounter Details Date Type Department Care Team (Late st Contact Info) Description 05/15/2020 Transcribed Document [facility] [place] [address] [place] [address] ProviderBailey MD [address], [place] [id number] Social History Tobacco Use Types Packs/Day Years Used Date Smoking Tobacco: Never Assessed Sex and Gender Information Value Date Recorded Sex Assigned at Male 12/25/2021 6:37 PM CDT Legal Sex Male 6:37 PM CDT Gender Identity Male 12/25/2021 6:37 PM CDT Sexual Orientation Not on file documented as of this encounter Miscellaneous Notes * Cerner Conversion Note - Bailey Varela MD - 05/15/2020 8:17 AM ECONOMETRICIAN DATE OF PROCEDURE: 05/11/2020 SURGEON: Farzad Simmons MD, MAUREEN Pain Certified PROCEDURE: Botox injection to muscle denervation under ultrasound guidance. DIAGNOSIS: Severe muscle spasm and spasticity of the upper back, causing cramping and spasming. SIDE: Left back. GROUPS OF MUSCLE: Left SEDATION: Paravertebral upper thoracic muscle group, left rhomboid minor and rhomboid major, and left trapezius muscle on the left side. SEDATION: We did not give any sedation. PROCEDURE SUMMARY: After explaining the risks and [...] aspiration, I injected the following to left (the/a total of 3 muscle groups.) The patient tolerated the procedure [...] levels are documented in the chart. PLAN: 1. I am going to schedule the patient after 3 months to repeat the Botox procedure. 2. Gabapentin 600 mg two tablets 3 times a day. 3. Baclofen 10 mg twice a day. 4. Tizanidine 4 mg two at night. 5. Ibuprofen 600 mg 3 times a day. 6. I am going to see the patient after 2 to 3 months to re-evaluate him. /[id number] Farzad Simmons MD, MAUREEN Pain Certified GINETTE/VERA / GINETTE / MODL /[id number] Electronically signed by Efraín, [facility] Conversion Manager Residential Cerner at 10/14/2022 8:35 AM CDT documented in this encounter Plan of Treatment Not on file documented as of this encounter Visit Diagnoses Not on filedocumented in this encounter
--- OUTSIDE RECORDS SUMMARY | 2025-01-05 14:13 | XMS_ITS | Encounter Summary ---
Author Organization [employer] ([place], [place], [place], [place]) Address [address] [place] [address] Care Team Providers Care Uniform Force Captain Name Role Phone Unavailable Primary Care Provider Unavailabl e Encounter Details Date Type Department Care Team (Late st Contact Info) Description 02/08/2020 Transcribed Document [facility] Family Medicine [address] [place] [address] ProviderBailey MD [address] [place], [place] [id number] Social History Tobacco Use Types Packs/Day Years Used Date Smoking Tobacco: Never Assessed Sex and Gender Information Value Date Recorded Sex Assigned at Male 12/25/2021 6:37 PM CDT Legal Sex Male 6:37 PM CDT Gender Identity Male 12/25/2021 6:37 PM CDT Sexual Orientation Not on file documented as of this encounter Miscellaneous Notes * Cerner Conversion Note - Bailey Varela MD - 02/08/2020 12:51 PM CDT DATE OF PROCEDURE: 02/08/2020 SURGEON: Farzad Simmons MD, MAUREEN Pain Certified PROCEDURE: Botox injection to muscle denervation under ultrasound guidance. DIAGNOSIS: Severe myofascial pain unresponsive to conservative measure. SIDE: Left side. GROUPS OF MUSCLE: Left paravertebral upper thoracic muscle group, left rhomboid minor and major, left trapezius muscle on the left side. [...] I injected the following to left paravertebral upper thoracic muscle group, left rhomboid minor and major, left trapezius muscle on the left side (a total of 3 muscle groups.) The patient [...] pain levels are documented in the chart. Pre and postprocedure pain level 7/10, and total Botox amount is 100 units. I am going to schedule the patient for trigger point injection after a month and a half to help him more with his muscle spasm. Meanwhile, we are going to continue with: 1. Gabapentin 120 mg 3 times a day. 2. lidocaine patches 5% q.12 hours on, 12 hours off. The patient has been screened for symptoms or risk factors related to COVID-19 both prior to arrival for the visit and upon arrival at the clinic for the visit today. No risk factors or symptoms are identified at today's visit and the patient has been afebrile. /[id number] Farzad Simmons MD, MAUREEN Pain Certified KR/AQ / KR / MODL /[id number] documented in this encounter Plan of Treatment Not on file documented as of this encounter Visit Diagnoses Not on filedocumented in this encounter
--- OUTSIDE RECORDS SUMMARY | 2025-01-05 14:13 | XMS_ITS | Encounter Summary ---
Author Organization [employer] ([place], [place], [place], [place]) Address [address] [place] [address] Care Team Providers Care Supervisor Train Operations Name Role Phone Unavailable Primary Care Provider Unavailabl e Encounter Details Date Type Department Care Team (Late st Contact Info) Description 12/11/2018 Transcribed Document [facility] [place] [facility] [place] [address] ProviderBailey MD [facility] [place], [place] [id number] Social History Tobacco Use Types Packs/Day Years Used Date Smoking Tobacco: Never Assessed Sex and Gender Information Value Date Recorded Sex Assigned at Male 12/25/2021 6:37 PM CDT Legal Sex Male 6:37 PM CDT Gender Identity Male 12/25/2021 6:37 PM CDT Sexual Orientation Not on file documented as of this encounter Miscellaneous Notes * Cerner Conversion Note - Bailey Varela MD - 12/11/2018 10:14 AM CDT DATE OF ADMISSION: 12/11/2018 HISTORY OF PRESENT ILLNESS: This is a 53-year-old male with a chief complaint of chronic mid and upper back pain for several years' duration, here today for a followup visit. The patient reports today that he is having pain in the left and mid upper back that feels like a stabbing and throbbing sensation. The patient reports that the pain is constant and makes him very uncomfortable. The patient mentions that the pain is moderate, is sometimes severe. The patient does take gabapentin 600 mg 4 times daily and tizanidine 4 mg 2 tablets at bedtime along with Flector patches 1 patch topically every 12 hours. The patient mentions that he does get some help and relief from that. However, he was getting the most benefit when he was able to have some interventional pain management procedures done here at the clinic along with his medication. The patient mentions that [employer] is not going to approve any injections at this time. The patient mentions that because of that he is going to a clinic in [place] that will do some dry needling to try to give him some relief from his muscle spasm. The patient mentions that he is hopeful that that will help him in regards to his pain in addition to his medicine. The patient mentions he has also by his therapist been changed to Prozac which he feels like is giving him some help in that area too. The patient denies adverse effects from his medications including toxic effects, sedation, driving problems, or GI problems. REVIEW OF SYSTEMS: Constitutional, Respiratory, Cardiovascular, Ophthalmology, Gastrointestinal, Genitourinary, ENT, Musculoskeletal, Integumentary, Neurology, Psychiatry, Endocrine, Hematology were not changed from his last visit on November 11, 2018. PHYSICAL EXAMINATION: Blood pressure 109/58, weight 290, height 69 inches, heart rate 70, respiratory rate 16, O2 sat 95%, temperature 95.0. Pain level, 5. Hours of sleep, 7.5. No change in physical and neurological exam. Muscle tone, power, sensory and deep tendon reflexes were unchanged. The nurse notes, vital signs and medication were reviewed and evaluated. No sign of impairment or toxicity to medicine. The patient's psych evaluation, urine drug screen and JODIE were appropriate for taking opioid medication. ASSESSMENT: 1. Chronic mid and upper back pain, status post work injury in January 2017. 2. Multiple myofascial pain and muscle spasm. 3. Thoracic radiculopathy. 4. Thoracic spondylosis. 5. Long-term use of high-risk medication. The patient is on gabapentin. PLAN: 1. The patient has been fairly well controlled on current medication. The patient has a good compliance with pain clinic regulation in regard to urine drug screen, JODIE, Psych evaluation. We spent more than half of the time discussing the risks, benefits of the medication, how to keep it in safe place, not to share with other people, not to mix with alcohol, or self-escalate it. 2. Continue gabapentin 600 mg 4 times daily. 3. Continue tizanidine 4 mg 2 tablets at bedtime. 4. Continue Flector patches 1.3% applied every 12 hours topically 1 patch. 5. I have encouraged the patient to try the dry needling and advised him on any effects that he may have after that, so that he can be aware to increase his hydration after the needling is done so that he does not have any additional pain. 6. Continue amitriptyline 25 mg 1 to 4 tablets at bedtime. 7. Continue Robaxin 500 mg twice daily. 8. I have encouraged the patient to continue some home exercises including walking and stretching. 9. We are going to see the patient back after one month to re-evaluate. 10. The assessment and plan for today's visit has been reviewed by Dr. Simmons. The medications for this patient's treatment plan has been prescribed by myself today. Dictated By: Theresa Thibodeaux APRN For Farzad Simmons M.D., MAUREEN Pain Certified Farzad Simmons M.D., MAUREEN Pain Certified Dict: 12/11/2018 10:14:03 Trans: 12/11/2018 12:25:40 CC1: Farzad Simmons M.D., MAUREEN Pain Certified CC2: Robert Boyle MD documented in this encounter Plan of Treatment Not on file documented as of this encounter Visit Diagnoses Not on filedocumented in this encounter
--- OUTSIDE RECORDS SUMMARY | 2025-01-05 14:13 | XMS_ITS | Encounter Summary ---
Author Organization [employer] ([place], [place], [place], [place]) Address [address] [place] [address] Care Team Providers Care Application Services Manager Name Role Phone Unavailable Primary Care Provider Unavailabl e Reason for Visit * Reason Comments New Med Request Encounter Details Date Type Department Care Team (Late st Contact Info) Description 10/20/2023 [facility] [address] [place] [id number] Farzad Simmons MD [address] [place] [address] Social History Tobacco Use Types Packs/Day Years Used Date Smoking Tobacco: Never Assessed Sex and Gender Information Value Date Recorded Sex Assigned at Male 12/25/2021 6:37 PM CDT Legal Sex Male 6:37 PM CDT Gender Identity Male 12/25/2021 6:37 PM CDT Sexual Orientation Not on file documented as of this encounter Plan of Treatment Not on file documented as of this encounter Visit Diagnoses Not on filedocumented in this encounter
--- OUTSIDE RECORDS SUMMARY | 2025-01-05 14:13 | XMS_ITS | Encounter Summary ---
Author Organization [employer] ([place], [place], [place], [place]) Address [address] [place] [address] Care Team Providers Care Band Log Mill And Carriage Operator Name Role Phone Unavailable Primary Care Provider Unavailabl e Encounter Details Date Type Department Care Team (Late st Contact Info) Description 03/15/[address] [facility] [place] [facility] [place] [address] ProviderBailey MD [address], [place] [phone] Social History Tobacco Use Types Packs/Day Years Used Date Smoking Tobacco: Never Assessed Sex and Gender Information Value Date Recorded Sex Assigned at Male 12/25/2021 6:37 PM CDT Legal Sex Male 6:37 PM CDT Gender Identity Male 12/25/2021 6:37 PM CDT Sexual Orientation Not on file documented as of this encounter Miscellaneous Notes * Cerner Conversion Note - Bailey Varela MD - 03/15/2019 4:26 PM CDT DATE OF ADMISSION: 03/15/2019 HISTORY OF PRESENT ILLNESS: This is a 53-year-old male with a chief complaint of chronic left thigh, the upper and mid back pain with muscle spasm for several years' duration, who is here today for a followup visit. Patient is following up for a refill of his gabapentin. He says that he continues to have mid to upper back pain on the left side that is a tingling and throbbing sensation. The patient says that he is using heat as well as cold and physical therapy with dry needling to help with his pain. The patient says that his insurance would not cover a TENS unit, so he was unable to get one. The patient says that he does have some new insurance now however and he would like to see if we can get him approved for his Botox that Dr. Simmons felt like he would benefit from. The patient says that he mentions that since the trigger point injections are helping him some that the Botox will give him more longstanding relief. The patient says that he was unable to continue working so he was forced to retire from his job. He reports that he continues to have constant pain on a daily basis that is moderate to at times severe. The patient is taking gabapentin 600 mg 4 times daily. He denies any adverse effects from the medication including toxic effects, sedation, driving problems, or GI problems. He does mention however that he does not feel like he is getting very good help or relief from that medication any more. REVIEW OF SYSTEMS: Constitutional, Respiratory, Cardiovascular, Ophthalmology, Gastrointestinal, Genitourinary, ENT, Musculoskeletal, Integumentary, Neurology, Psychiatry, Endocrine, Hematology were not changed from his last visit on February 04, 2019. PHYSICAL EXAMINATION: Blood pressure 112/64, weight 306 pounds, height 69 inches, heart rate 78, respiratory rate 16, O2 sat 96%, temperature 97.1. Pain level 5. Hours of sleep 8. No change in physical and neurological exam. [...] January 2017. 2. Multiple myofascial pain and severe spasm. 3. Thoracic radiculopathy. 4. Thoracic spondylosis. 5. Long-term use of gabapentin. 6. Severe spasticity and muscle spasm to the left paravertebral thoracic muscle and rhomboid major and minor. PLAN: 1. The patient has been fairly [...] self-escalate it. 2. We are going to increase the patient's gabapentin to 600 mg 3 times daily and 1200 mg at bedtime to see if we can give him some additional relief. 3. We are going to check with the patient's new insurance to see if they will be willing to approve Botox for the patient's muscle spasm. 4. In the meantime, we are going to repeat trigger point injections for him as soon as possible. 5. We are going to continue tizanidine 4 mg 2 tablets at bedtime. 6. We are going to continue amitriptyline 100 mg at bedtime. 7. We are going to continue Lidoderm patches 5% apply on for 12 hours and off for 12 hours daily. 8. We are going to see the patient back two weeks after his next procedure to re-evaluate. 9. The assessment and plan for today's visit has been reviewed by Dr. Simmons, however, I have prescribed the medications for this patient's treatment plan today. Dictated By: Theresa Thibodeaux APRN For Farzad Simmons M.D., MAUREEN Pain Certified Farzad Simmons M.D., MAUREEN Pain Certified Dict: 03/15/2019 16:26:19 Trans: 03/15/2019 20:03:55 CC1: Farzad Simmons M.D., MAUREEN Pain Certified CC2: Robert Boyle MD CC3: Kvng Solano MD documented in this encounter Plan of Treatment Not on file documented as of this encounter Visit Diagnoses Not on filedocumented in this encounter
--- OUTSIDE RECORDS SUMMARY | 2025-01-05 14:13 | XMS_ITS | Encounter Summary ---
Author Organization [employer] ([place], [place], [place], [place]) Address [address] [place] [address] Care Team Providers Care Real Estate Asset Manager Name Role Phone Unavailable Primary Care Provider Unavailabl e Encounter Details Date Type Department Care Team (Late st Contact Info) Description 01/07/2020 Transcribed Document [facility] [place] Medicine [facility] [place] [address] ProviderBailey MD [facility] [place], [place] [id number] Social History Tobacco Use Types Packs/Day Years Used Date Smoking Tobacco: Never Assessed Sex and Gender Information Value Date Recorded Sex Assigned at Male 12/25/2021 6:37 PM CDT Legal Sex Male 6:37 PM CDT Gender Identity Male 12/25/2021 6:37 PM CDT Sexual Orientation Not on file documented as of this encounter Miscellaneous Notes * Cerner Conversion Note - Bailey Varela MD - 01/07/2020 10:12 AM CDT DATE OF ADMISSION: 01/07/2020 HISTORY OF PRESENT ILLNESS: This is a 54-year-old male with a chief complaint of chronic mid and upper back pain, status post work-related injury with severe myofascial pain, came today for a followup. The patient had a good response to trigger point injection first and then followed up by the Botox procedure and he did very well with that. We have been also following up with the patient refilling his gabapentin that gave the patient good help and relief. He is currently on 1200 mg three times a day. He also has some problem with his shoulder and he had an MRI which showed there is a tendinopathy and tendinosis of the supraspinous and infraspinous tendon with incomplete tear according to his MRI to the shoulder. He is following with Dr. Robert Boyle. He denied any major aggravation of his pain and he is now following with physical therapy and he is using from last prescription TENS unit that giving him good help and relief. He denied any major side effects to his medication which include toxic effects, sedation, driving problem, or GI problem. We wrote the prescription for Lidoderm patches; however, the patient mentioned that the insurance would not approve it. REVIEW OF SYSTEMS: Constitutional, respiratory, cardiovascular, ophthalmology, gastrointestinal, genitourinary, ENT, musculoskeletal, integumentary, neurology, psychiatry, endocrine, hematology were not changed from his last visit, which is 12/10/2019. PHYSICAL EXAMINATION: VITAL SIGNS: Blood pressure is 119/100, heart rate 76, respirations 16, saturation 94%, temperature 98.0. Pain level 6. Hours of sleep 6. No change in physical and neurological exam. Muscle tone power sensory and deep tendon reflexes were unchanged. The nurse's notes, vital signs, and medication were reviewed and evaluated. No sign of impairment or toxicity to medicine. The patient psych evaluation, urine drug screen, and JODIE were appropriate for taking opioid medication. DIAGNOSTIC DATA: The patient had an MRI to the thoracic spine on December 06, 2019, showed minimal disk desiccation, T8-T9, otherwise negative. ASSESSMENT: 1. Chronic mid and upper back pain. The patient is status post work-related injury in January 2017. 2. Severe multiple myofascial pain of the back. 3. Thoracic muscle spasm. 4. Thoracic radiculopathy. 5. Thoracic spondylosis. 6. Spasticity of the muscle spasm, paravertebral muscle area and rhomboid major and minor area. 7. Long-term gabapentin use. 8. The patient had a recent MRI to the shoulder on December 06, 2019, showed there is an incomplete tear of the supra and infraspinatus with SLAP tear of anterior glenoid labrum. PLAN: 1. The patient has been fairly [...] with alcohol, or self-escalate it. 2. I encouraged the patient to continue physical therapy and apply TENS unit. 3. Continue with gabapentin 1200 mg three times a day. 4. I encouraged the patient to continue follow up with his orthopedic physician for his shoulder pain. 5. I encouraged the patient to continue physical therapy. 6. We are going to schedule him for the next Botox after 3 months after the last one and then we will re-evaluate him. The patient has been screened for symptoms or risk factors related to COVID-19 both prior to arrival for the visit and upon arrival at the clinic for the visit today. No risk factors or symptoms are identified at today's visit and the patient has been afebrile. /[id number] Farzad Simmons MD, MAUREEN Pain Certified KR/AQ / KR / MODL CC: Robert Boyle MD Electronically signed by [facility], [facility] Conversion Accelerator Technician Cerner at 10/14/2022 8:47 AM CDT documented in this encounter Plan of Treatment Not on file documented as of this encounter Visit Diagnoses Not on filedocumented in this encounter
--- OUTSIDE RECORDS SUMMARY | 2025-01-05 14:13 | XMS_ITS | Clinical Summary ---
Author Organization [employer] ([place], [place], [place], [place]) Address [address] [place] [address] Care Team Providers Care Rehabilitation [facility] Manager Name Role Phone Unavailable Primary Care Provider Unavailabl e Social History Tobacco Use Types Packs/Day Years Used Date Smoking Tobacco: Never Assessed Sex and Gender Information Value Date Recorded Sex Assigned at Male 12/25/2021 6:37 PM CDT Legal Sex Male 6:37 PM CDT Gender Identity Male 12/25/2021 6:37 PM CDT Sexual Orientation Not on file Plan of Treatment Not on file
--- OUTSIDE RECORDS SUMMARY | 2025-01-05 14:13 | XMS_ITS | Encounter Summary ---
Author Organization [employer] ([place], [place], [place], [place]) Address [address] [place] [address] Care Team Providers Care Public Relations Analyst Name Role Phone Unavailable Primary Care Provider Unavailabl e Encounter Details Date Type Department Care Team (Late st Contact Info) Description 12/10/2019 Transcribed Document [facility] [place] [facility] [place] [address] ProviderBailey MD [address], [place] [id number] Social History Tobacco Use Types Packs/Day Years Used Date Smoking Tobacco: Never Assessed Sex and Gender Information Value Date Recorded Sex Assigned at Male 12/25/2021 6:37 PM CDT Legal Sex Male 6:37 PM CDT Gender Identity Male 12/25/2021 6:37 PM CDT Sexual Orientation Not on file documented as of this encounter Miscellaneous Notes * Cerner Conversion Note - Bailey Varela MD - 12/10/2019 11:11 AM CDT DATE OF ADMISSION: 12/10/2019 HISTORY OF PRESENT ILLNESS: This is a 54-year-old male with a chief complaint of chronic lower back pain, mid and upper back pain for several years' duration, came today for followup. The patient has been fairly well controlled in our clinic with a different interventional treatment, especially the Botox procedure that gave the patient good help and relief. The last procedure we had on November 11, 2019, with the Botox to the severe myofascial pain gave the patient 75% relief of pain, which is still ongoing. The patient is also on 600 mg of gabapentin take three times a day. He is also doing physical therapy, however, his session is finished, so he wants to restart the session of the physical therapy, and he would like to have another prescription for that. He is trying to do more stretching and walking. He walks almost 2 miles. He is following the rules and regulation regard using high-risk medication of gabapentin in our clinic, and he denied any major side effects to his medication, which include toxic effects, sedation, driving problem, or GI problem. REVIEW OF SYSTEMS: Constitutional, respiratory, cardiovascular, ophthalmology, gastrointestinal, genitourinary, ENT, musculoskeletal, integumentary, neurology, psychiatry, endocrine, hematology were not changed from his last visit on November 11, 2019. PHYSICAL EXAMINATION: VITAL SIGNS: His blood pressure is 136/102, his heart rate is 82, respirations 16, saturation 96%, temperature 98.3. Pain level 5/10. Hours of sleep 5-2. No change in physical and neurological exam. [...] back pain. The patient is status post work injury in January 2017. 2. Severe multiple myofascial pain. 3. Thoracic muscle spasm. 4. Thoracic radiculopathy. 5. Thoracic spondylosis. 6. Spasticity of muscle spasm in paravertebral muscle area and rhomboid major and minor area. 7. Long-term use of gabapentin. PLAN: 1. I had a lengthy discussion with the patient regard to his condition, I am pleased with the results of the Botox procedure on November 11, 2019, that gave the patient 75% relief of pain, which is still ongoing and helping. 2. I am going to send the patient for repeat the physical therapy session to give the patient more help and relief, and loosen up the muscles. 3. Baclofen 10 mg two to three times a day. 4. Tizanidine 4 mg take two tablets at night. 5. Ibuprofen 600 mg three times a day. 6. Gabapentin 600 mg take two of them 3 times a day. 7. I am going to prescribe Lidoderm patches to apply to the back every 12 hours on, 12 hours off. 8. I am going to write a prescription for TENS unit to apply to his back to see if that will give him good help. 9. I am going to send the patient for physical therapy, so we can do more soft tissue mobilization and deep tissue stretching. 10. I am going to see the patient after 1 month to re-evaluate him. The patient has been screened for symptoms or risk factors related to COVID-19 both prior to arrival for the visit and upon arrival at the clinic for the visit today. No risk factors or symptoms are identified at today's visit and the patient has been afebrile. /[id number] Farzad Simmons MD, MAUREEN Pain Certified KR/AQ / GINETTE / MODL CC: Robert Boyle MD Electronically signed by [facility] Conversion Grease Rack Worker Cerner at 10/14/2022 8:49 AM CDT documented in this encounter Plan of Treatment Not on file documented as of this encounter Visit Diagnoses Not on filedocumented in this encounter
--- OUTSIDE RECORDS SUMMARY | 2025-01-05 14:13 | XMS_ITS | Encounter Summary ---
Author Organization [employer] ([place], [place], [place], [place]) Address [address] [place] [address] Care Team Providers Care Risk Control Representative Name Role Phone Unavailable Primary Care Provider Unavailabl e Encounter Details Date Type Department Care Team (Late st Contact Info) Description 04/03/2020 Transcribed Document [facility] [place] [facility] [place] [address] ProviderBailey MD [address], [place] [id number] Social History Tobacco Use Types Packs/Day Years Used Date Smoking Tobacco: Never Assessed Sex and Gender Information Value Date Recorded Sex Assigned at Male 12/25/2021 6:37 PM CDT Legal Sex Male 6:37 PM CDT Gender Identity Male 12/25/2021 6:37 PM CDT Sexual Orientation Not on file documented as of this encounter Miscellaneous Notes * Cerner Conversion Note - Bailey Varela MD - 04/03/2020 1:06 PM CDT DATE OF ADMISSION: 04/03/2020 HISTORY OF PRESENT ILLNESS: This is a 54-year-old male with a chief complaint of chronic mid and upper back pain for several years' duration, who is seen today for a followup visit. The patient is following up today after we did trigger point injections for him on March 07, 2020. The patient denies any complications from the procedure and says that he got about 3 weeks of 75% relief. He says the pain is now starting to gradually return. He reports that he is already scheduled for his Botox in April. He says the Botox lasted about 90% for at least seven weeks before it started gradually weaning off. The patient says that today as pain is moderate. He reports it as in the mid and upper back on the left side. He describes it as a stabbing, throbbing sensation. He does have associated symptoms of insomnia. He says that he uses attention in addition to his medication to help with his pain. The patient is taking gabapentin three times daily as well as tizanidine at bedtime and baclofen during the day since the baclofen does not make him sleepy. He reports that he tolerates his medication well and denies any adverse effects including toxic effect, sedation, driving problems, or GI problems. The patient says that he was very happy with the results of the trigger point injections and that doing that after the Botox seems to give him the most benefit and relief. REVIEW OF SYSTEMS: Constitutional, respiratory, cardiovascular, ophthalmology, gastrointestinal, genitourinary, ENT, musculoskeletal, integumentary, neurology, psychiatry, endocrine, hematology were not changed from his last visit on March 07, 2020. PHYSICAL EXAMINATION: VITAL SIGNS: Blood pressure 131/71, weight 295, height 69 inches, heart rate 86, respiratory rate 16, O2 saturation 96%, temperature 98.8. Pain level 6. Hours of sleep 5 to 5-1/2. No change in physical and neurological exam. Muscle tone, power, sensory, and deep tendon reflexes were unchanged. The nurse's notes, vital signs, and medication were reviewed and evaluated. No sign of impairment or toxicity to medicine. The patient psych evaluation, urine drug screen, and JODIE were appropriate for taking opioid medication. ASSESSMENT: 1. Chronic mid and upper back pain status post work-related injury in January 2017. 2. Severe multiple myofascial pain of the back. 3. Thoracic muscle spasm. 4. Thoracic radiculopathy. 5. Thoracic spondylosis. 6. Spasticity of the muscle spasm, paravertebral muscle area and rhomboid major and minor area. 7. Long-term use of gabapentin. 8. 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 PLAN: 1. I am very pleased with the results of the trigger point injections that we did for the patient that continued to give him some ongoing help and relief. The patient is very happy with that. He was able to increase his activity level. We are going to repeat that as needed. 2. We are going to continue baclofen 10 mg twice daily. 3. The patient has been fairly well controlled [...] to mix with alcohol, or self-escalate it. 4. Continue gabapentin 600 mg two tablets three times daily. 5. I am going to provide the patient some information on peripheral nerve stimulator, so that we can further discuss that at another visit. 6. We are going to continue tizanidine 4 mg two tablets at bedtime as needed. 7. The patient is already scheduled back in April for Botox, so we are going to bring him back and do that since that has given him some additional help and relief. 8. I have encouraged the patient to continue a healthy diet and home exercise program including stretching. 9. I have encouraged the patient to continue using nonpharmacologic measures to reduce his pain including heat, ice, home exercises, and TENS unit. 10. The assessment and plan for today's visit have been reviewed by Dr. Simmons, however, I have prescribed the medications for this patient's treatment plan today. The patient has been screened for symptoms or risk factors related to COVID-19 both prior to arrival for the visit and upon arrival at the clinic for the visit today. No risk factors or symptoms are identified at today's visit and the patient has been afebrile. /[id number] JUAN Burgess/AQ / ADAM / MODL CC: KEON (REF) MD PAIGE Electronically signed by Efraín [facility] Conversion Hot Worker Cerner at 10/14/2022 8:59 AM CDT documented in this encounter Plan of Treatment Not on file documented as of this encounter Visit Diagnoses Not on filedocumented in this encounter
--- OUTSIDE RECORDS SUMMARY | 2025-01-05 14:13 | XMS_ITS | Encounter Summary ---
Author Organization [employer] ([place], [place], [place], [place]) Address [address] [place] [address] Care Team Providers Care District Court Judge Name Role Phone Unavailable Primary Care Provider Unavailabl e Encounter Details Date Type Department Care Team (Late st Contact Info) Description 10/07/2018 Transcribed Document [facility] [place] [facility] [place] [address] ProviderBailey MD [address], [place] [id number] Social History Tobacco Use Types Packs/Day Years Used Date Smoking Tobacco: Never Assessed Sex and Gender Information Value Date Recorded Sex Assigned at Male 12/25/2021 6:37 PM CDT Legal Sex Male 6:37 PM CDT Gender Identity Male 12/25/2021 6:37 PM CDT Sexual Orientation Not on file documented as of this encounter Miscellaneous Notes * Cerner Conversion Note - Bailey Varela MD - 10/07/2018 11:35 AM CDT DATE OF ADMISSION: 10/07/2018 HISTORY OF PRESENT ILLNESS: This is a 52-year-old male with a chief complaint of chronic mid and upper back pain for several years' duration. The patient presents today for a followup visit along with medication management. The patient is complaining today of left sided thoracic pain. He describes the pain as stabbing and throbbing. He states he does use heat and cold on his back and states that it is helping a little bit. He states he does continue to do his daily home exercises and states that helps some too. The patient does note that the increase of gabapentin from 400 mg to 600 mg 4 times a day seems to be helping some. He states he has noticed that the pain has not been as severe at times. He states it is tolerable more than what it was previously. The patient states he did see his neurosurgeon, Dr. Prince. He states that Dr. Prince discussed with him that the best thing for his back pain is going to be to get the Botox injections in his back. However, his insurance has denied that. The patient states he does continue to take tizanidine at bedtime. He states that is helping him to sleep better and is doing much better than the baclofen was. The patient also continues to take Robaxin during the day. He states that is helping with his muscle spasms during the day. The patient denies any side effects with this medications to include toxic effect, excess sedation, driving problems, GI problems. The patient's JODIE was reviewed and found to be appropriate at today's office visit. The patient has been compliant with his urine drug screening. REVIEW OF SYSTEMS: Constitutional, Respiratory, Cardiovascular, Ophthalmology, Gastrointestinal, Genitourinary, ENT, Musculoskeletal, Integumentary, Neurology, Psychiatry, Endocrine, Hematology were not changed from 09/10/2018. PHYSICAL EXAMINATION: VITAL SIGNS: Blood pressure 128/73, weight 290 pounds, height 5 feet 9 inches, heart rate 73, respiratory rate 16, O2 saturation 94% on room air, temperature 97.8. Hours of sleep 6-07/01. Pain 5/10. No change in physical and neurological exam. Muscle tone power sensory and deep tendon reflexes were unchanged. The nurse notes, vital signs, and medication were reviewed and evaluated. No sign of impairment or toxicity to medicine. The patient psych evaluation, urine drug screen, and JODIE were appropriate for taking opioid medication. DIAGNOSTIC STUDIES: The patient had a urine drug screen on 09/10/2018. It was considered appropriate. This was discussed with the patient at today's office visit. ASSESSMENT: 1. Chronic mid and upper back pain status post work injury in January 2017. 2. Multiple myofascial pain and muscle spasms. 3. Thoracic radiculopathy. 4. Thoracic spondylosis. 5. Long-term use of gabapentin. PLAN: 1. Refill gabapentin 600 mg 4 times a day. 2. Continue tizanidine 4 mg at bedtime, has refills. 3. Continue amitriptyline 25 mg 1-4 capsules at bedtime, has refills. 4. I have encouraged the patient to do his home exercises to include walking, stretching, and range of motion exercises. 5. The patient states he would like to be scheduled for Botox injections once his insurance will approve it. 6. The patient is going to follow up in one month for re-evaluation and medication management. 7. The assessment and plan for today's visit was reviewed by Dr. Simmons. However, I have prescribed all medications for this patient's treatment plan. Dictated By: Christianne Walsh APRN For Farzad Simmons M.D., MAUREEN Pain Certified Farzad Simmons M.D., MAUREEN Pain Certified Dict: 10/07/2018 11:35:18 Trans: 10/07/2018 12:54:01 CC1: Farzad Simmons M.D., AMUREEN Pain Certified CC2: Dr. Robert Boyle documented in this encounter Plan of Treatment Not on file documented as of this encounter Visit Diagnoses Not on filedocumented in this encounter
--- OUTSIDE RECORDS SUMMARY | 2025-01-05 14:13 | XMS_ITS | Encounter Summary ---
Author Organization [employer] ([place], [place], [place], [place]) Address [address] [place] [address] Care Team Providers Care Service Parts Driver Name Role Phone Unavailable Primary Care Provider Unavailabl e Encounter Details Date Type Department Care Team (Late st Contact Info) Description 09/03/2019 Transcribed Document [facility] [place] [facility] [place] [address] ProviderBailey MD [address], [place] [phone] Social History Tobacco Use Types Packs/Day Years Used Date Smoking Tobacco: Never Assessed Sex and Gender Information Value Date Recorded Sex Assigned at Male 12/25/2021 6:37 PM CDT Legal Sex Male 6:37 PM CDT Gender Identity Male 12/25/2021 6:37 PM CDT Sexual Orientation Not on file documented as of this encounter Miscellaneous Notes * Cerner Conversion Note - Bailey Varela MD - 09/03/2019 1:05 PM ERGONOMICS TECHNICIAN DATE OF ADMISSION: 09/03/2019 HISTORY OF PRESENT ILLNESS: This is a 53-year-old male with a chief complaint of chronic back and shoulder pain as well as severe thoracic muscle spasm since January 2017, who is here today for a followup visit. The patient is following up after we did Botox for him in the left trapezius, left rhomboid minor and major, and left paravertebral thoracic muscle group on August 10, 2019. The patient denies any complications from the procedure and reports he is getting help currently at about 30%. He says that the pain control has been increasing each day. He says that he feels so much better and he is happy. He says that he has been able to smile. Since the injections, he says that he has done very well with that. He says that he is having some mild pain and a little bit of discomfort in the area where the injection was done. He says that his pain is a spasm, aching, throbbing sensation. He reports, however, that he has been able to increase his activity level and he is so happy with that. The patient says that he is so excited about maybe being able to do some walking and exercising and lose some weight. He says that he is also doing stretches to help with his pain. He says that he has bought a treadmill and hopefully he will be able to begin walking and increase some endurance. He says that he feels so much better overall that he is able to do more things. He says that he has been waiting for an extended period of time to have his relief again from the Botox and he is happy that he was able to do that. The patient is also taking baclofen twice daily as needed, tizanidine at bedtime, ibuprofen as needed, and gabapentin 4 times daily. He reports that he takes all of his medication exactly as prescribed and that the use of medication does make him more functional and it also gives him some relief from his pain. The patient denies any adverse effects including toxic effect, sedation, driving problems, or GI problems. REVIEW OF SYSTEMS: Constitutional, respiratory, cardiovascular, ophthalmology, gastrointestinal, genitourinary, ENT, musculoskeletal, integumentary, neurology, psychiatry, endocrine, hematology were unchanged from his last visit on August 10, 2019. PHYSICAL EXAMINATION: VITAL SIGNS: Blood pressure 146/86, weight 295, height 69 inches, heart rate 67, respiratory rate 16, O2 saturation 96%, temperature 97. Pain level, 4. Hours of sleep, 6. No change in physical and neurological [...] spondylosis. 6. Spasticity and muscle spasm of the paravertebral thoracic muscle and rhomboid major and [...] self-escalate it. 2. Continue gabapentin 600 mg two in the morning, one in the afternoon, and three at bedtime. 3. Continue baclofen 10 mg twice to 3 times daily as needed. 4. Continue tizanidine 4 mg one to two tablets at bedtime as needed. 5. Continue ibuprofen 600 mg three times daily as needed. 6. I have encouraged the patient to continue his home exercises and stretches as well as to walk. I have advised him to start slowly since it has been a long period of time that he has been able to do that and increase in increments every week until he is walking and doing some cardiovascular exercise at least three times weekly for 30 minutes or longer. He has voiced understanding of that. 7. We are going to see the patient back in 1 month to re-evaluate. 8. I am very happy with the results of the Botox injections. The patient says that he is getting significant relief from that. He says that he is so much happier now. His mood has improved, his overall well-being has improved, and he is very pleased with that. We are going to continue to do that every three months. 9. The assessment and plan for today's visit have been reviewed by Dr. Simmons, however, I have prescribed the medications for this patient's treatment plan today. /[id number] JUAN Burgess/VERA / ADAM / MODL CC: MD Magnus Taylor MD Electronically signed by [facility] Zita Soil Analyst Darinel at 10/14/2022 9:02 AM CDT documented in this encounter Plan of Treatment Not on file documented as of this encounter Visit Diagnoses Not on filedocumented in this encounter"
--- OUTSIDE RECORDS SUMMARY | 2025-01-05 14:13 | XMS_ITS | Clinical Summary ---
Author Organization [facility] Address [address] [place] [address] Care Team Providers Care Diesel Technician Mechanic Name Role Phone Robert Boyle MD Primary Care Provider [phone] Social History Tobacco Use Types Packs/Day Years Used Date Smoking Tobacco: Never Assessed Sex and Gender Information Value Date Recorded Sex Assigned at Not on file Legal Sex Male 8:31 PM EDT Gender Identity Not on file Sexual Orientation Not on file Plan of Treatment Health Maintenance Due Date Last Done Comments [facility]-Depression Screening 1966 [facility]-HIV Screening 1966 [facility]-Hepatitis C Screening 1966 [facility]-Medicare Annual Wellness (AWV) 1966 [facility]-/Child/Adol SDOH Screenings 1966 [facility]- SDOH Screenings 1984 [facility]-Adult SDOH Screenings 1984 [facility]-Hepatitis B Vaccines (1 of 3 - 19+ 3-dose series) 1985 [facility]-DTaP,Tdap,and Td Vaccines (1 - Tdap) 09/07/1996 09/06/1996 CT Colonography 11/03/2011 Colonoscopy 11/03/2011 FIT-DNA 11/03/2011 FIT 11/03/2011 FOBT 11/03/2011 Sigmoidoscopy 11/03/2011 [facility]-Colorectal Cancer Screening 11/03/2011 [facility]-Pneumococcal Vaccine: 50+ Years (1 of 1 - PCV) 2016 [facility]-Zoster Vaccines (1 of 2) 2016 [id number] Vaccine ( - 2023- season) 2024 11/22/2021, 06/27/2021, 10/25/2020, Additional history exists [facility]-Influenza Vaccine (#1) 02/28/202506/13, 05/28/2021, 05/08/2020, Additional history exists HPV Vaccines Aged Out No longer eligi ble based on patient's age to complete this topic [facility]-HIB Vaccines Aged Out No longer e ligible based on patient's age to complete this topic [facility]-Hepatitis A Vaccines Aged Out No longer eligible based on patient's age to complete this topic [facility]-IPV Vaccines Aged Out No longer e ligible based on patient's age to complete this topic [facility]-Rotavirus Vaccines Aged Out No lo nger eligible based on patient's age to complete this topic Insurance N [place] [id number] [facility] [place] [address] Care Teams Diesel Technician Mechanic Relationship Specialty Start Date End Date Robert Boyle MD [address] [place] [id number] PCP - General Internal Medicine 08/20/22
--- OUTSIDE RECORDS SUMMARY | 2025-01-05 14:13 | XMS_ITS | Encounter Summary ---
Author Organization [employer] ([place], [place], [place], [place]) Address [address] [place] [address] Care Team Providers Care Process Improvement Specialist Name Role Phone Unavailable Primary Care Provider Unavailabl e Encounter Details Date Type Department Care Team (Late st Contact Info) Description 02/04/2019 Transcribed Document [facility] [place] [facility] [place] [address] ProviderBailey MD [address], [place] [id number] Social History Tobacco Use Types Packs/Day Years Used Date Smoking Tobacco: Never Assessed Sex and Gender Information Value Date Recorded Sex Assigned at Male 12/25/2021 6:37 PM CDT Legal Sex Male 6:37 PM CDT Gender Identity Male 12/25/2021 6:37 PM CDT Sexual Orientation Not on file documented as of this encounter Miscellaneous Notes * Cerner Conversion Note - Bailey Varela MD - 02/04/2019 3:05 PM CDT DATE OF ADMISSION: 02/04/2019 HISTORY OF PRESENT ILLNESS: This is a 53-year-old male with a chief complaint is chronic left side of the upper and mid back pain with muscle spasming for several years' duration, came today for followup. The patient mentioned that he has off and on some aggravation of his pain; however, he had a good response to the trigger point injection, epidural and Botox. He has also taken his medication gabapentin 600 mg 4 times a day and Robaxin 500 mg twice a day. This combination is helping him with his pain and keeps it under level of 5-6/10 and he is able to accomplish so many things at home and outside the house. He denied any major side effects to his medication, which include toxic effect, sedation, driving problem, or GI problem. He also mentioned that he does not have any recent aggravation of his pain. REVIEW OF SYSTEMS: Constitutional, Respiratory, Cardiovascular, Ophthalmology, Gastrointestinal, Genitourinary, ENT, Musculoskeletal, Integumentary, Neurology, Psychiatry, Endocrine, Hematology were not changed from January 08, 2019. PHYSICAL EXAMINATION: Blood pressure 133/74, heart rate is 83, respirations 16, saturation 93%, temperature 98.2. Pain level 6. Hours of sleep 7.5. No change in [...] and rhomboid major and minor. PLAN: 1. We are going to continue with gabapentin 600 mg 4 times a day. 2. Tizanidine 4 mg, take 2 at night. 3. Robaxin 500 mg twice a day. 4. I am going to prescribe the patient TENS unit to see if that will help him with his back muscle spasming. 5. The patient is using tizanidine 4 mg 1-2 at night. 6. Amitriptyline, the patient uses up to 100 mg at night. 7. I am going to provide the patient Lidoderm patches 5%, apply 12 hours on, 12 hours off. 8. I am going to see the patient after one month. Hopefully, we will schedule the patient after get approval from workers' compensation for Botox procedure. Farzad Simmons M.D., MAUREEN Pain Certified Dict: 02/04/2019 15:05:53 Trans: 02/04/2019 17:08:49 CC1: Farzad Simmons M.D., MAUREEN Pain Certified CC2: Dr. Robert Boyle CC3: Dr. Keith Solano Electronically signed by [facility] Conversion Wire Bender Cerner at 10/14/2022 8:56 AM CDT documented in this encounter Plan of Treatment Not on file documented as of this encounter Visit Diagnoses Not on filedocumented in this encounter
--- OUTSIDE RECORDS SUMMARY | 2025-01-05 14:13 | XMS_ITS | Encounter Summary ---
Author Organization [employer] ([place], [place], [place], [place]) Address [address] [place] [address] Care Team Providers Care Hearing Officer Name Role Phone Unavailable Primary Care Provider Unavailabl e Encounter Details Date Type Department Care Team (Late st Contact Info) Description 11/12/2018 Transcribed Document [facility] [place] Family Medicine [facility] [place] [address] ProviderBailey MD [address] [place], [place] [id number] Social History Tobacco Use Types Packs/Day Years Used Date Smoking Tobacco: Never Assessed Sex and Gender Information Value Date Recorded Sex Assigned at Male 12/25/2021 6:37 PM CDT Legal Sex Male 6:37 PM CDT Gender Identity Male 12/25/2021 6:37 PM CDT Sexual Orientation Not on file documented as of this encounter Miscellaneous Notes * Cerner Conversion Note - Bailey Varela MD - 11/12/2018 8:04 AM CDT DATE OF ADMISSION: 11/11/2018 HISTORY OF PRESENT ILLNESS: This is a 53-year-old male with a chief complaint of chronic mid and upper back pain for several years' duration. The patient presents today for followup along with medication management. The patient is complaining today of left upper shoulder pain and scapular pain. He states he is also having bilateral elbow pain. The patient describes his pain as stabbing and throbbing. He is using heat and cold along with home exercise and a TENS unit. He states that those treatments do help him some. The patient states that he still continues to have quite a bit of depression. He states that he is very frustrated right now that he is not getting much better, that he is not against his capable as he once was. He states that he has an appointment next week. He states that it will be his first appointment with the therapist. He states that his primary care provider did give him Valium 5 mg. Per his JODIE on October 09, 2018, he was given #60 for 20 days by his primary care provider. The patient states that he does have fairly severe anxiety and panic attacks, and that it does help with these. The patient also did note that he has an upcoming meeting in court case for [employer] and the patient's eligibility to get disability. He states that it has also been really stressful for him. He states that it is also adding into his depression and stress. The patient is still very frustrated that he has been unable to get any kind of Botox injections or any other kind of injections as his [employer] has not been approving anything. The patient does continue to take amitriptyline. He states that he is able to take 100 mg at bedtime. He states that it is helping him sleep some. The patient does continue to take Robaxin 500 mg twice a day. He states that does help with his muscle spasms. The patient does continue to take gabapentin 600 mg 4 times a day. He states that it does provide him with additional relief. The patient denies any side effects with his medications to include toxic effect, excess sedation, driving problems, GI problems. The patient's JODIE was reviewed and found to be appropriate at today's office visit. REVIEW OF SYSTEMS: Constitutional, Respiratory, Cardiovascular, Ophthalmology, Gastrointestinal, Genitourinary, ENT, Musculoskeletal, Integumentary, Neurology, Psychiatry, Endocrine, Hematology were not changed from October 07, 2018. PHYSICAL EXAMINATION: VITAL SIGNS: Blood pressure 117/76, weight 290 pounds, height 5 feet 9 inches, heart rate 80, respiratory rate 16, O2 saturation 94% on room air, temperature 97.2. Hours of sleep, 8. Pain, 5/10 to 6/10. No change in physical and neurological exam. Muscle tone, power, sensory and deep tendon reflexes were unchanged. The nurse notes, vital signs and medication were reviewed and evaluated. No sign of impairment or toxicity to medicine. The patient's psych evaluation, urine drug screen, and JODIE [...] 4 mg at bedtime, has refills. 3. Refill amitriptyline 25 mg 1 to 4 capsules at bedtime. 4. I have encouraged the patient to do home exercises to include walking, stretching and range of motion exercises. 5. Refill Robaxin 500 mg twice a day. 6. The patient is going to follow up in one month for re-evaluation and medication management. 7. The assessment and plan for today's visit was reviewed by Dr. Simmons. However, I have prescribed all medications for this patient's treatment plan. Dictated By: Christianne Walsh APRN For Farzad Simmons M.D., MAUREEN Pain Certified Farzad Simmons M.D., MAUREEN Pain Certified Dict: 11/12/2018 08:04:14 Trans: 11/12/2018 12:28:18 CC1: Farzad Simmons M.D., MAUREEN Pain Certified CC2: Dr. Robert Boyle documented in this encounter Plan of Treatment Not on file documented as of this encounter Visit Diagnoses Not on filedocumented in this encounter
--- OUTSIDE RECORDS SUMMARY | 2025-01-05 14:13 | XMS_ITS | Encounter Summary ---
Author Organization [employer] ([place], [place], [place], [place]) Address [address] [place] [address] Care Team Providers Care Montessori Preschool Teacher Name Role Phone Unavailable Primary Care Provider Unavailabl e Encounter Details Date Type Department Care Team (Late st Contact Info) Description 05/17/2019 Transcribed Document [facility] [place] [facility] [address] ProviderBailey MD [address], [place] [id number] Social History Tobacco Use Types Packs/Day Years Used Date Smoking Tobacco: Never Assessed Sex and Gender Information Value Date Recorded Sex Assigned at Male 12/25/2021 6:37 PM CDT Legal Sex Male 6:37 PM CDT Gender Identity Male 12/25/2021 6:37 PM CDT Sexual Orientation Not on file documented as of this encounter Miscellaneous Notes * Cerner Conversion Note - Bailey Varela MD - 05/17/2019 10:33 AM SNOWSPORT INSTRUCTOR DATE OF SERVICE: 05/14/2019 HISTORY OF PRESENT ILLNESS: This is a 53-year-old male with a chief complaint of chronic left thigh pain as well as chronic mid back pain with muscle spasm for several years' duration, who is here today for followup visit. The patient is following up after we did trigger point injections for him on April 12, 2019. The patient denies any complications from the procedure and says that he got 5 to 6 days of 15% to 20% relief. The patient says that previously the trigger point used to give him good help and relief, and unfortunately, did not last very long. He says that he continues to get some relief from that, but they seem to be lasting shorter and shorter duration as time progresses. The patient says that he continues to take his Zanaflex as well as his gabapentin, and they are not giving him as much help now. He reports he is having mid to upper back pain on the left side that feels like a stabbing sensation. The patient says that previously when he was able to do the Botox injections followed by trigger point injections, that he got good help in ongoing relief for at least 2 to 3 months. The patient says, however, that he is worker's comp no longer was willing the pay for Botox. The patient says that he would like to see if he can have that filed under his [employer] if at all possible, so that he could have that in combination with trigger point injections to give him help and relief. The patient says that he is taking gabapentin 600 mg two in the morning, one at noon, and two at bedtime. He reports that he did not have any adverse effects from his medication including toxic effect, sedation, driving problems, or GI problems. The patient says that he plans on trying to do some copayment assistance, so that he can have Botox and that be paid for through the pharmaceutical company. The patient says that if at all possible, he feels like he could get half that, he would be able to do more activity. He reports however he does get some mild help and relief from his gabapentin, and he denies any adverse effects from that medication. The patient has been in compliance with the rules and regulations of the clinic. REVIEW OF SYSTEMS: Constitutional, respiratory, cardiovascular, ophthalmology, gastrointestinal, genitourinary, ENT, musculoskeletal, integumentary, neurology, psychiatry, endocrine, hematology were not changed from his last visit on April 12, 2019. PHYSICAL EXAMINATION: VITAL SIGNS: Blood pressure 128/78, weight 300, height 69 inches, heart rate 86, respiratory rate 16, O2 saturation 97%, temperature 97.4. Pain level 6. Hours of sleep 8. No change in [...] and upper back pain, status post work injury, January 2017. 2. Multiple myofascial pain and severe muscle spasm. 3. Thoracic radiculopathy. 4. Thoracic spondylosis. 5. Spasticity and muscle spasm to the left paravertebral thoracic muscle and rhomboid major and minor. 6. Long-term use of high-risk medication. The patient [...] it. 2. Continue gabapentin 600 mg two tablets in the morning, one at noon, and two tablets in the evening. 3. We are going to check with the patient's [employer] to see if we are able to do any Botox. Otherwise, we will plan to see the patient back for an office visit in one month. 4. We are going to continue tizanidine 4 mg two tablets at bedtime. 5. Continue amitriptyline 100 mg at bedtime. 6. Continue Lidoderm patches 5% on for 12 hours, off for 12 hours daily. 7. The assessment and plan for today's visit has been reviewed by Dr. Simmons, however, I have prescribed the medications for this patient's treatment plan today. /[id number] DICTATED BY: Theresa Thibodeaux APRN for Farzad Simmons MD, MAUREEN Pain Certified Farzad Simmons MD, MAUREEN Pain Certified TK/AQ / TK / MODL /[id number] CC: MD Robert Pedraza MD documented in this encounter Plan of Treatment Not on file documented as of this encounter Visit Diagnoses Not on filedocumented in this encounter
--- OUTSIDE RECORDS SUMMARY | 2025-01-05 14:13 | XMS_ITS | Encounter Summary ---
Author Organization [facility] ([place], [place], [place], [place]) Address [address] [place] [address] Care Team Providers Care Varnish Dipper Name Role Phone Unavailable Primary Care Provider Unavailabl e Encounter Details Date Type Department Care Team (Late st Contact Info) Description 09/10/2018 Transcribed Document [facility] [place] Family Medicine [facility] [place] [address] ProviderBailey MD [address], [place] [id number] Social History Tobacco Use Types Packs/Day Years Used Date Smoking Tobacco: Never Assessed Sex and Gender Information Value Date Recorded Sex Assigned at Male 12/25/2021 6:37 PM CDT Legal Sex Male 6:37 PM CDT Gender Identity Male 12/25/2021 6:37 PM CDT Sexual Orientation Not on file documented as of this encounter Miscellaneous Notes * Cerner Conversion Note - Bailey Varela MD - 09/10/2018 11:39 AM CDT DATE OF ADMISSION: 09/10/2018 HISTORY OF PRESENT ILLNESS: This is a 52-year-old male with a chief complaint of chronic mid and upper back pain for several years' duration. The patient presents today for a followup along with medication management. The patient is complaining today of mid thoracic left-sided pain. He states occasionally he will get pain that radiates down his arm to his fingers. The patient describes his pain as stabbing. He states he is using heat, cold, and home exercise to try to help alleviate his pain. He states that may help some, but not very much. The patient states he is feeling pretty depressed as he has not been able to get enough relief from everything we have been doing. The patient states that his pain wakes him up at night. He states that he has very interrupted sleep. So, he is unable to function really well during the day due to how drowsy he is. The patient states the amitriptyline does not seem to be helping with his sleep. He states that he still is waking up during the night. He also is having hard time falling asleep. The patient does continue to take gabapentin 400 mg 4 times a day. He states that seem do provide him some relief, but is not sure that it is providing very much. The patient also continues to take baclofen 10 mg at bedtime. He states that is not providing him with any relief or allowing him to sleep any better. The patient states he did much better on tizanidine at night and he would like to be rotated back to that. He states he does continue to take Robaxin 500 mg twice a day during the day. He states that seems to be helping with his muscle spasms. The patient denies any side effects with this medications to include toxic effect, excess sedation, driving problems, GI problems. The patient's JODIE was reviewed and found to be appropriate his office visit. The patient has been compliant with his urine drug screening. REVIEW OF SYSTEMS: Constitutional, Respiratory, Cardiovascular, Ophthalmology, Gastrointestinal, Genitourinary, ENT, Musculoskeletal, Integumentary, Neurology, Psychiatry, Endocrine, Hematology were not changed from 08/13/2018. PHYSICAL EXAMINATION: VITAL SIGNS: Blood pressure 129/84, weight 290 pounds, height 5 feet 9 inches, heart rate 85, respiratory rate 16, O2 saturation 93% on room air, temperature 98.4. Hours of sleep 8. Pain 6/10. No change in physical and neurological [...] 5. Long-term use of gabapentin. PLAN: 1. Increase gabapentin from 400 mg to 600 mg 4 times a day. 2. Restart tizanidine 4 mg at bedtime. 3. Continue amitriptyline 25 mg 1-4 capsules at bedtime, has refills. 4. I have encouraged the patient to continue doing his home exercises to include walking, stretching, and range of motion exercises. 5. The patient states he would like to be scheduled for Botox injections once his insurance will approve it. 6. The patient is going to follow up in one month for re-evaluation and medication management. 7. The assessment and plan for today's visit was reviewed by Dr. Simmons. However, all medications were prescribed by me. Dictated By: Christianne Walsh APRN For Farzad Simmons M.D., MAUREEN Pain Certified Farzad Simmons M.D., MAUREEN Pain Certified Dict: 09/10/2018 11:39:30 Trans: 09/10/2018 16:06:52 CC1: Farzad Simmons M.D., MAUREEN Pain Certified CC2: Dr. Robert Boyle Electronically signed by Efraín [facility] Conversion Track Dresser Cerner at 10/14/2022 9:02 AM CDT documented in this encounter Plan of Treatment Not on file documented as of this encounter Visit Diagnoses Not on filedocumented in this encounter
--- OUTSIDE RECORDS SUMMARY | 2025-01-05 14:13 | XMS_ITS | Encounter Summary ---
Author Organization [employer] ([place], [place], [place], [place]) Address [address] [place] [address] Care Team Providers Care Color Paste Mixer Name Role Phone Unavailable Primary Care Provider Unavailabl e Encounter Details Date Type Department Care Team (Late st Contact Info) Description 06/13/2020 Transcribed Document [facility] [place] Family [place] [facility] [place] [address] ProviderBailey MD [address], [place] [id number] Social History Tobacco Use Types Packs/Day Years Used Date Smoking Tobacco: Never Assessed Sex and Gender Information Value Date Recorded Sex Assigned at Male 12/25/2021 6:37 PM CDT Legal Sex Male 6:37 PM CDT Gender Identity Male 12/25/2021 6:37 PM CDT Sexual Orientation Not on file documented as of this encounter Miscellaneous Notes * Cerner Conversion Note - Bailey Varela MD - 06/13/2020 4:35 PM REPAIR SERVICER DATE OF ADMISSION: 06/13/2020 HISTORY OF PRESENT ILLNESS: This is a 54-year-old male with a chief complaint of chronic mid back pain for several years' duration who is seen today for a followup visit. The patient is following up after we did Botox for muscle spasms on May 11, 2020. He denies any complications from the procedure and says he is getting ongoing relief of about 95% to 100%. He says this is the lowest pain level I have had in three years. The patient says he still has some pain at the top of his left shoulder blade that is so much better. He describes it as a throbbing sensation. He is using heat, cold, home exercises, and TENS unit in addition to doing the Botox injections and taking his gabapentin. The patient is using gabapentin three times daily. He says that it does give him some good help and relief. He denies any adverse effects including toxic effect, sedation, driving problems, or GI problems. REVIEW OF SYSTEMS: Constitutional, respiratory, cardiovascular, ophthalmology, gastrointestinal, genitourinary, ENT, musculoskeletal, integumentary, neurology, psychiatry, endocrine, hematology were unchanged from his last visit on May 11, 2020. PHYSICAL EXAMINATION: VITAL SIGNS: Blood pressure 119/73, weight 304, height 69 inches, heart rate 75, respiratory rate 16, O2 saturation 96%, temperature 97.4. Pain level 4. Hours of sleep 6.5. No change in physical and neurological exam. Muscle tone, power, sensory, and deep tendon reflexes were unchanged. The nurse's notes, vital signs, and medication were reviewed and evaluated. No sign of impairment or toxicity to medicine. The patient psych evaluation, urine drug screen, and JODIE were appropriate for taking opioid medication. ASSESSMENT: 1. Chronic mid back pain status post work-related injury in January 2017. 2. Severe multiple myofascial pain of the back. 3. Thoracic radiculopathy. 4. Thoracic spondylosis. 5. Spasticity of the muscle spasm paravertebral muscle area and rhomboid major and minor area. 6. Long-term use of gabapentin. PLAN: 1. The [...] 2. Continue gabapentin 600 mg two tablets three times daily. 3. I am very happy with the results of the Botox injections that we did for the patient on May 11, 2020. He says this is the best relief that he has gotten in nearly three years. He says that he is getting almost 100% relief from his pain. He was able to increase his activity level. We are very pleased with that. We are going to continue those every three months ongoing. 4. I have encouraged the patient to continue non-pharmacologic measures to help reduce his pain. 5. I have encouraged the patient to continue a healthy diet and do some range of motion exercises and stretches. 6. The assessment and plan for today's visit has been reviewed by Dr. Simmons, however, I have prescribed the medications for this patient's treatment plan today. 7. The patient has been screened for symptoms or risk factors related to COVID-19 both prior to arrival for the visit and upon arrival at the clinic for the visit today. No risk factors or symptoms are identified at today's visit and the patient has been afebrile. /[id number] Theresa Thibodeaux APRN ADAM/AQ / ADAM / MODL CC: Robert Boyle MD Electronically signed by Efraín [facility] Conversion Lockstitch Waistband Setter Cerner at 10/14/2022 8:49 AM CDT documented in this encounter Plan of Treatment Not on file documented as of this encounter Visit Diagnoses Not on filedocumented in this encounter
--- OUTSIDE RECORDS SUMMARY | 2025-01-05 14:13 | XMS_ITS | Encounter Summary ---
Author Organization [employer] ([place], [place], [place], [place]) Address [address] [place] [address] Care Team Providers Care Merchant Tailor Name Role Phone Unavailable Primary Care Provider Unavailabl e Encounter Details Date Type Department Care Team (Late st Contact Info) Description 04/12/2019 Transcribed Document [facility] [place] Family Medicine [facility] [address] ProviderBailey MD [address], [place] [phone] Social History Tobacco Use Types Packs/Day Years Used Date Smoking Tobacco: Never Assessed Sex and Gender Information Value Date Recorded Sex Assigned at Male 12/25/2021 6:37 PM CDT Legal Sex Male 6:37 PM CDT Gender Identity Male 12/25/2021 6:37 PM CDT Sexual Orientation Not on file documented as of this encounter Miscellaneous Notes * Cerner Conversion Note - Bailey Varela MD - 04/12/2019 8:36 AM CDT DATE OF PROCEDURE: 04/12/2019 PROCEDURE: Trigger point injection(s) under ultrasound guidance. TOTAL NUMBER OF MUSCLES INJECTED: Three groups of muscles. SITE(S): 1. Left paravertebral thoracic muscle group. 2. Left suprascapular muscle group. 3. Left trapezius muscle group. SEDATION: We did not give any sedation. DIAGNOSIS: Myofascial pain and muscle spasms. PROCEDURE SUMMARY: After explaining the risks and benefits of the procedure, an informed consent was obtained. Prior to beginning procedure, a time out was performed. The trigger point area(s) were identified via palpation and then prepped in a sterile fashion. After careful negative aspiration; each trigger point was injected with 1 mL of a mixture containing 5 mL of 1% lidocaine, 5 mL of bupivacaine 0.5% and 40 mg Depo-Medrol under ultrasound guidance. The patient tolerated the procedure well and without incident. Upon completion of the procedure, the needle was removed and the injection site was covered with a dressing. The patient was discharged from the clinic in stable condition, neurologically intact and with the appropriate discharge instructions. The patient has been instructed to contact my office with any questions or difficulties. Pre and post procedure pain levels are documented in the chart. PLAN: I am going to see the patient after one month to re-evaluate him. Farzad Simmons M.D., MAUREEN Pain Certified Dict: 04/12/2019 08:36:39 Trans: 04/12/2019 09:07:37 CC1: Farzad Simmons M.D., MAUREEN Pain Certified documented in this encounter Plan of Treatment Not on file documented as of this encounter Visit Diagnoses Not on filedocumented in this encounter
--- OUTSIDE RECORDS SUMMARY | 2025-01-05 14:13 | XMS_ITS | Data Portability ---
Author Organization [facility] Address [address] [place] [address] Care Team Providers Care Aviation Support Equipment Repairer Name Role Phone ROBERT GIBSON Primary Care [...] improve. Able to progress [place] program at [facility] appt. Updated ther ex per flow sheet [...] By Organization Details Last Modified Time 04/08/2019 [id number] I think at this point in time, [...] will not help some of the symptoms. [email or web address] Not available 04/08/2019 13:28:03 08/12/2019 [id number] shoulder pain: care instructions [email or web address] Not available 08/13/2019 12:02:16 Hopefully the injections will give him some relief of the pain and allow him to do a little bit of exercises. We went over some of the most basic exercises for the treatment with wall slides, scapular retractions and closed chain activation. We demonstrated these for him and then allowed him to do these. [email or web address] Not available 08/12/2019 17:02:31 01/13/2020 [id number] Complex conditio n and review of dr [...] and Address Organization Details Recorded Time Scapulalgia 26754648 Active 2018 Scooby Littlefie ld null, [facility] 9 17:57:42 Muscular incoordination 12751563 Active 2018 Sc[place]oby [place] null, [facility] 9 17:57:43 Abnormal posture 04016811 Active 2018 Sc[place]oby Littlef[place] ld null, [facility] 9 17:57:46 Muscle weakness 95110945 Active 2018 [place] ld null, [facility] 9 17:57:49 Problem Notes None recorded. Procedures Surgical History Date Name Laterality Status Provider Name and Address Organization Details Recorded Time 03/12/20 19 PT Therapeutic Exercise completed EVELIA DAHL II, PT, DPT [address] [place], [address], [facility] 03/12/2019 10:23:06 03/02/20 19 PT Therapeutic Exercise completed EVELIA DAHL II, PT, DPT [address] [place], [address], [facility] 03/11/2019 14:08:58 02/20/20 19 PT Therapeutic Exercise completed EVELIA DAHL II, PT, DPT [address] [place], [address], [facility] 02/19/2019 10:20:13 02/09/20 19 PT Manual Therapy completed [facility] 02/08/2019 12:58:49 02/09/20 19 PT Therapeutic Exercise completed [facility] 02/08/2019 12:58:53 02/02/20 19 PT Manual Therapy completed [facility] 02/01/2019 12:56:55 02/02/20 19 PT Therapeutic Exercise completed [facility] 02/01/2019 12:56:33 01/26/20 19 PT Manual Therapy completed [facility] 01/25/2019 12:40:38 01/26/20 19 PT Therapeutic Exercise completed [facility] 01/25/2019 12:40:19 01/13/20 19 PT Evaluation - Moderate Complexity completed EVELIA DAHL II, PT, DPT [address] [place], [address], [facility] 01/13/2019 07:31:06 01/13/20 19 PT Therapeutic Exercise completed [facility] 01/12/2019 14:49:08 11/07/19 18 PT Evaluation - Moderate Complexity completed MORENA RAGLAND, PT [address] [place], [address], [facility] 11/06/2017 13:05:38 11/07/19 18 PT Therapeutic Exercise completed MORENA RAGLAND, PT [address] [place], [address], [facility] 01/25/2018 08:10:43 Orthopedic Surgery completed Eleni Lambert [facility] 10/20/2017 10:26:28 Imaging Results None recorded. Procedure [...] Body mass index (BMI) Body weight Systolic And Diastolic Provider Name and Address Organization Details Last Updated DateTime 08/12/2019 175.26 cm 44.3 kg/m2 586233.71 g 138/90 mm[Hg] Heavenly Barnes [facility] 08/12/2019 14:44:31 Date Recorded Body height Body mass index (BMI) Body weight Systolic And Diastolic Provider Name and Address Organization Details Last Updated DateTime 01/13/2020 175.26 cm 44.3 kg/m2 905513.71 g 158/108 mm[Hg] Damaris Vladislav [facility] 01/13/2020 14:11:15 Date Recorded Body height Body mass index (BMI) Body weight Systolic And Diastolic Provider Name and Address Organization Details Last Updated DateTime 04/08/2019 175.26 cm 44.3 kg/m2 495336.71 g 136/80 mm[Hg] Eleni Kwonls [facility] 04/08/2019 09:09:08 Social History Question Answer Notes LastModified by Organizat ion Details LastModified Time Tobacco Smoking Status Never Smoker Elenidaysi Kwonls [facility] 10/20/2017 10:27:31 What Was The Date Of Your Most Recent Tobacco Screening? 01/01/2019 Information n ot available 08/17/2019 Sex: Unknown Functional Status None recorded. Mental Status None recorded. Family History Relationship Description Onset Age of this Age Resolved Age Notes LastModified by Organization Details LastModified Time Unspecified Relation Arthritis [email or web address] Not available 2017 10:26:53 Medical History Condition Response Allergies/Hayfever Y Anxiety/Depression Y Thyroid Disease N Migraines Y COPD N Anesthesia Complications N Diabetes N Arthritis Y Tuberculosis N Asthma N Blood Thinners N Sleep Apnea Y High Cholesterol N Liver Disease N Hypertension Y Osteoporosis N Kidney Disease N Past Encounters Encounter ID Performer Location Encounter Start Date Encounter Closed Date Diagnosis/Indication Diagnosis SNOMED-CT Code Diagnosis ICD10 Code Diagnosis Note [id number] W MYRA SOLANO MD [facility] [address] [address] 11/06/2017 09:13:06 11/06/2017 14:11:13 Scapulalgia 91338594 M89.8X1 [id number] MORENA RAGLAND, PT PHYSICAL THERAPY / HAND THERAPY [facility] [address] [address] 11/06/2017 12:58:32 01/26/2018 07:38:46 Scapulalgia 98248586 M25.512 Pain of sh oulder region 78148232 M25.512 Muscle weakness 70655553 M62.81 [id number] Kvng SOLANO MD [facility] [address] [place] [id number] 01/08/2018 08:46:11 01/08/2018 09:33:50 Scapulalgia 59981361 M89.8X1 [id number] Kvng SOLANO MD [facility] [address] [place] [address] 02/16/2018 09:11:35 02/16/2018 09:47:06 Scapulalgia 87228937 M89.8X1 [id number] Kvng SOLANO MD [facility] [address] [place] [address] 04/20/2018 14:45:11 04/20/2018 16:57:00 Scapulalgia 26406953 M89.8X1 [id number] Kvng SOLANO MD [facility] [address] [place] [address] 6 05/25/2018 14:00:14 05/25/2018 14:34:34 Scapulalgia 48531323 M89.8X1 [id number] Kvng SOLANO MD [facility] [address] [place] [address] 6 07/03/2018 09:41:18 07/03/2018 11:07:05 Scapulalgia 46803910 M89.8X1 [id number] Kvng SOLANO MD [facility] [address] [address] 10/02/2018 09:19:03 10/02/2018 10:28:19 Pain of shoulder region 01167776 M25.397 [id number] Kvng SOLANO MD [facility] [address] [address] 01/01/2019 09:48:17 01/01/2019 10:46:30 Pain of shoulder region 84071293 M25.447 [id number] EVELIA DAHL II, PT, DPT PHYSICAL THERAPY / HAND [facility]APY [facility] [address] [address] 01/12/2019 12:59:40 01/13/2019 08:02:15 Scapulalgia 91994088 M89.8X1 Muscular incoordination 80007236 R27.8 Abnormal posture 8384761 2 R29.3 Muscle weakness 88798146 M62.81 [id number] EVELIA DAHL II PT, DPT PHYSICAL THERAPY / [facility] [address] [address] 01/25/2019 11:17:39 01/25/2019 16:58:55 Scapulalgia 76247102 M89.8X1 Muscle weakness 54183653 M62.81 Muscular incoordination 81352341 R27.8 Abnormal posture 7432400 2 R29.3 [id number] EVELIA DAHL II PT, DPT PHYSICAL THERAPY / [facility] [address] [address] 02/01/2019 11:25:31 02/08/2019 14:48:31 Scapulalgia 08797073 M89.8X1 Muscle weakness 15082450 M62.81 Muscular incoordination 35526863 R27.8 Abnormal posture 4999345 2 R29.3 [id number] EVELIA DAHL II, PT, DPT PHYSICAL THERAPY / [facility] [address] [place] [address] 02/08/2019 11:23:32 02/12/2019 08:08:44 Scapulalgia 18746466 M89.8X1 Muscle weakness 43365599 M62.81 Muscular incoordination 67867823 R27.8 Abnormal posture 5832151 2 R29.3 [id number] EVELIA DAHL II, PT, DPT PHYSICAL THERAPY / [facility]APY [facility] [address] [place] [address] 02/19/2019 09:45:02 02/19/2019 11:20:04 Scapulalgia 22522445 M89.8X1 Muscle weakness 62925240 M62.81 Muscular incoordination 71129300 R27.8 Abnormal posture 0064075 2 R29.3 [id number] EVELIA DAHL II, PT, DPT PHYSICAL THERAPY / [facility]AP[facility] [address] [place] [address] 03/02/2019 16:32:57 03/12/2019 08:10:41 Scapulalgia 88047046 M89.8X1 Muscle weakness 56564633 M62.81 Muscular incoordination 08892953 R27.8 Abnormal posture 4631412 2 R29.3 [id number] EVELIA DAHL II, PT, DPT PHYSICAL THERAPY / [facility]APY [facility] [address] [place] [address] 03/12/2019 09:47:02 03/22/2019 15:20:23 Scapulalgia 71513472 M89.8X1 Muscle weakness 67135176 M62.81 Muscular incoordination 03671953 R27.8 Abnormal posture 6643733 2 R29.3 [id number] Kvng SOLANO MD [facility] [address] [place] [id number] 04/08/2019 08:42:22 04/08/2019 09:59:20 Scapulalgia 67803232 M89.8X1 [id number] Kvng SOLANO MD [facility] [address] [place] [id number] 08/12/2019 14:30:28 08/12/2019 16:24:19 Pain of shoulder region 64487673 M25.589 [id number] RICHIE MICHEL MD [facility] [address] [place] [address] 01/13/2020 12:55:00 01/13/2020 15:02:01 Pain of left shoulder joint 2230667287 4860647 M25.512 Scapulalgia 35049978 M25 .519 Health Concerns Section Related Observation LastModified by Organization Detai ls LastModified Time None Recorded Concern Status LastModified by Organization Details LastModified Time None Recorded Advance Directives Directive None Recorded Payers Insurance Date Sequence Insurance Name Policy Number Policy Perrin Covered Member ID Perrin Member ID Guarantor Name 04/10/2020 1 [place] [id number] Tyler Toussaint [id number] Toussaint Notes Date Note Type [...] travel time. EVELIA DAHL II, PT, DPT [address] [place], [address], [facility] 03/11/2019 14:11:01 03/12/2019 text/html Pt reports his l eft shoulder is significantly improved. Reports, I feel great. Reports he is thang his HEP very well. States he was able to travel without an inc in pain. Reports he has no new complaints. Inc soreness due to over particiaption if HEP. EVELIA DAHL II, PT, DPT [address] [place], [address], [facility] 03/22/2019 12:35:58 04/08/2019 text/html He continues [...] Botox injections. Kvng SOLANO MD [address] [place], [address], [facility] 04/08/2019 13:49:58 08/12/2019 text/html Since last [...] the Botox. Kvng SOLANO MD [address] [place], [address], [facility] 08/13/2019 12:02:19 01/13/2020 text/html 01/13/20 PCP: Robert Gibson MD SEEN FOR CONSULTATION AT THE REQUEST OF: Keith Solano MD WHAT: Left Shoulder pain WHERE: WHEN: 11/2016 How: Repetitive Stress - worked at [employer] Previous history of injury or surgery: No Botox injections every 3 months does help a little started in june dr lomax at pain mgmt he thinks it i a knot in muscle just above shoulder blade he wants to keep going with botox helps a little dr solano feels it is not surgical started at [facility] case denied forced into usp by [facility] no trauma he does not want to hear that it is in bone he stims every night and heat therapy [facility] gabapentin and ibuprofen tried tizanaidine PAIN: Pain Rating: Current 6, Worst 10 SYMPTOMS: Locking Clicking/Popping Catching Buckling Instability Pain with pivot/twist yes Grinding Swelling Stiffness Burning Numbness/tingling X-RAY: , MRI: Yes, Patient has disc 12/06/19 - [facility] PT: Duration: Injection: Date: NSAIDS: Medrol: Medication: DME: Activity Modification: Since last being seen he continues to [...] scheduled for the Botox. RICHIE MICHEL MD [address] [place] [address], [address], [facility] 02/06/2020 23:23:05
--- OUTSIDE RECORDS SUMMARY | 2025-01-05 14:13 | XMS_ITS | Encounter Summary ---
Author Organization [employer] ([place], [place], [place], [place]) Address [address] [place] [address] Care Team Providers Care District Recruiter Name Role Phone Unavailable Primary Care Provider Unavailabl e Encounter Details Date Type Department Care Team (Late st Contact Info) Description 10/01/2019 Transcribed Document [facility] [place] [facility] [place] [address] ProviderBailey MD [facility] [place], [place] [address] Social History Tobacco Use Types Packs/Day Years Used Date Smoking Tobacco: Never Assessed Sex and Gender Information Value Date Recorded Sex Assigned at Male 12/25/2021 6:37 PM CDT Legal Sex Male 6:37 PM CDT Gender Identity Male 12/25/2021 6:37 PM CDT Sexual Orientation Not on file documented as of this encounter Miscellaneous Notes * Cerner Conversion Note - Bailey Varela MD - 10/01/2019 2:03 PM CDT DATE OF ADMISSION: 10/01/2019 HISTORY OF PRESENT ILLNESS: This is a 53-year-old male with a chief complaint of chronic back and shoulder pain as well as chronic severe thoracic muscle spasm since January 2017 who is here today for a followup visit. The patient is following up for refills of his gabapentin. He reports that he was getting excellent help and relief from the Botox, however, he says that that lasted about 7 weeks and now the pain has returned. The patient says that the pain is fairly severe at the present time. He says it is in the mid to upper back on the left side. The patient is using baclofen during the day for muscle spasm and Zanaflex at night. He has also been taking gabapentin 600 mg, a total of 5 of those daily. The patient says that his pain is an aching, throbbing sensation. He is also using heat and cold in addition to home exercises and a TENS unit to help with his pain. He reports that he takes his medication exactly as prescribed and that the use of the medication does make him more functional. He says, however, the gabapentin is not giving him enough pain relief to be as functional as he would like to be. The patient does have urine drug screening noted from his last visit on September 03, 2019, that is consistent with his current medications. REVIEW OF SYSTEMS: Constitutional, respiratory, cardiovascular, ophthalmology, gastrointestinal, genitourinary, ENT, musculoskeletal, integumentary, neurology, psychiatry, endocrine, hematology were not changed from his last visit on September 03, 2019. PHYSICAL EXAMINATION: VITAL SIGNS: Blood pressure 157/90, weight 300, height 69 inches, heart rate 69, respiratory rate 16, O2 saturation 95%, temperature 97.2. Pain level 7. Hours of sleep 5.5. No change in physical and neurological exam. [...] paravertebral thoracic muscle and rhomboid major and rhomboid minor. 7. Long-term use of gabapentin. PLAN: [...] increase the patient's gabapentin to 600 mg 2 of those 3 times daily. Hopefully, this will give the patient some additional help and relief, however, this will max him out on the dosage of gabapentin. 3. We will plan to do the Botox as soon as insurance will allow that again since it did give him significant help and relief. 4. We are going to continue baclofen 10 mg 2-3 times daily as needed. 5. Continue tizanidine 4 mg 2 tablets at bedtime as needed. 6. Continue ibuprofen 600 mg 3 times daily as needed. 7. I have encouraged the patient to continue a healthy diet and home exercise program. 8. We are going to see the patient back in 1 month to re-evaluate. 9. The assessment and plan for today's visit have been reviewed by Dr. Simmons, however, I have prescribed the medications for this patient's treatment plan today. 10. I have reviewed the patient's urine drug screening from his last visit on September 03, 2019. It is consistent with his current medications. We are going to continue to repeat those randomly. /[id number] JUAN Burgess/VERA / ADAM / MANJU documented in this encounter Plan of Treatment Not on file documented as of this encounter Visit Diagnoses Not on filedocumented in this encounter
--- OUTSIDE RECORDS SUMMARY | 2025-01-05 14:13 | XMS_ITS | Encounter Summary ---
Author Organization [employer] ([place], [place], [place], [place]) Address [address] [place] [address] Care Team Providers Care Vehicle Operator Technician Name Role Phone Unavailable Primary Care Provider Unavailabl e Encounter Details Date Type Department Care Team (Late st Contact Info) Description 03/07/2020 Transcribed Document [facility] [place] [facility] [place] [address] ProviderBailey MD [address] [id number] Social History Tobacco Use Types Packs/Day Years Used Date Smoking Tobacco: Never Assessed Sex and Gender Information Value Date Recorded Sex Assigned at Male 12/25/2021 6:37 PM CDT Legal Sex Male 6:37 PM CDT Gender Identity Male 12/25/2021 6:37 PM CDT Sexual Orientation Not on file documented as of this encounter Miscellaneous Notes * Cerner Conversion Note - Bailey Varela MD - 03/07/2020 10:06 AM CDT DATE OF PROCEDURE: 03/07/2020 SURGEON: Farzad Simmons MD, MAUREEN Pain Certified PROCEDURE: Trigger point injection(s). TOTAL NUMBER OF MUSCLES INJECTED: 3 groups of muscles. SITE(S): Left paravertebral thoracic muscle group, left trapezius muscle group, left rhomboid muscle group. SEDATION: We did not give any sedation. DIAGNOSIS: Myofascial pain and muscle spasms. PROCEDURE SUMMARY: After explaining the risks and benefits of the procedure, an informed consent was obtained. Prior to beginning the procedure, a timeout was performed. The trigger point area(s) were identified via palpation and then prepped in a sterile fashion. Each trigger point was injected with 1 mL of a mixture containing 5 mL of 1% lidocaine mixed with bicarbonate, 5 mL of bupivacaine 0.5% and 40 mg Depo-Medrol. Aspiration was negative. The patient tolerated the procedure well and [...] pain levels are documented in the chart. We are going to continue with: 1. Gabapentin 600 mg take 2 tablets 3 times a day. 2. Since the insurance denied the Lidoderm patches, I mentioned to the patient he can get lidocaine ointment over the counter with 4% that might give him additional help and relief and then re-evaluate the patient after that. The patient has been screened for symptoms or risk factors related to COVID-19 both prior to arrival for the visit and upon arrival at the clinic for the visit today. No risk factors or symptoms are identified at today's visit and the patient has been afebrile. /[id number] Farzad Simmons MD, MAUREEN Pain Certified KR/VERA / GINETTE / MODL /[id number] Electronically signed by Efraín [facility] Conversion Sales Contractor Cerner at 10/14/2022 8:55 AM CDT documented in this encounter Plan of Treatment Not on file documented as of this encounter Visit Diagnoses Not on filedocumented in this encounter
--- OUTSIDE RECORDS SUMMARY | 2025-01-05 14:13 | XMS_ITS | Referral Summary ---
Author Organization [employer] ([place], [place], [place], [place]) Address [address] [place] [address] Care Team Providers Care Weblogic Administrator Name Role Phone Unavailable Primary Care Provider [...]
--- OUTSIDE RECORDS SUMMARY | 2025-01-05 14:13 | XMS_ITS | Encounter Summary ---
Author Organization [employer] ([place], [place], [place], [place]) Address [address] [place] [address] Care Team Providers Care Divine Healer Name Role Phone Unavailable Primary Care Provider Unavailabl e Encounter Details Date Type Department Care Team (Late st Contact Info) Description 08/13/2018 Transcribed Document [facility] [place] [facility] [place] [address] ProviderBailey MD [address] [place], [place] [id number] Social History Tobacco Use Types Packs/Day Years Used Date Smoking Tobacco: Never Assessed Sex and Gender Information Value Date Recorded Sex Assigned at Male 12/25/2021 6:37 PM CDT Legal Sex Male 6:37 PM CDT Gender Identity Male 12/25/2021 6:37 PM CDT Sexual Orientation Not on file documented as of this encounter Miscellaneous Notes * Cerner Conversion Note - Bailey Varela MD - 08/13/2018 4:36 PM PAINT ROLLER WINDER DATE OF ADMISSION: 08/13/2018 HISTORY OF PRESENT ILLNESS: This is a 52-year-old male with a chief complaint of chronic mid and upper back pain for several years' duration. The patient presents today for a followup along with medication management. The patient is complaining today of mid back pain. He states he is still having some headache since his last epidural injection. He states that he does have some neck pain. The patient describes his pain as stabbing and throbbing. He states he is using heat and cold and that it is providing him with some relief. He states that he has not been going to physical therapy. The patient does continue to do home exercises, though. The patient states that he misunderstood Dr. Simmons at his last office visit and procedure visit with him. He was supposed to be holding the tizanidine and starting baclofen at bedtime. He states however he has been taking tizanidine 1 tablet at bedtime along with the baclofen at night. He states although he is still having trouble sleeping. The patient does continue to take gabapentin 400 mg 4 times a day. He states that does provide him with some relief. The patient states that he is having no side effects with this medication to include toxic effect, excess sedation, driving problems, GI problems. The patient's JODIE was reviewed and found to be appropriate at today's office visit. The patient has been compliant with his urine drug screening. REVIEW OF SYSTEMS: Constitutional, Respiratory, Cardiovascular, Ophthalmology, Gastrointestinal, Genitourinary, ENT, Musculoskeletal, Integumentary, Neurology, Psychiatry, Endocrine, Hematology were not changed from 07/07/2018. PHYSICAL EXAMINATION: VITAL SIGNS: Blood pressure 123/82, weight 290 pounds, height 5 feet 9 inches, heart rate 82, respiratory rate 16, O2 saturation 95% on room air, temperature 98.1. Hours of sleep 7 to 7-07/01, but it is broken. Pain 6/10. No change in physical and [...] spasms. 3. Thoracic radiculopathy. 4. Thoracic spondylosis. PLAN: 1. Refill gabapentin 400 mg 4 times a day. 2. Stop tizanidine. 3. Start amitriptyline 25 mg 1-4 capsules at bedtime. I did discuss with the patient how to increase his dosing in order to get the desired therapeutic effect. 4. I have encouraged the patient to continue doing his home exercises to include walking, stretching, and range of motion exercises. 5. The patient has stopped going to physical therapy. 6. The patient states he would like to schedule Botox injections. 7. The assessment and plan for today's visit was reviewed by Dr. Simmons. However, I did prescribe all medications for this patient's treatment plan. Dictated By: Christianne Walsh APRN For Farzad Simmons M.D., MAUREEN Pain Certified Farzad Simmons M.D., MAUREEN Pain Certified Dict: 08/13/2018 16:36:30 Trans: 08/13/2018 17:46:36 CC1: Farzad Simmons M.D., MAUREEN Pain Certified CC2: Dr. Robert Boyle documented in this encounter Plan of Treatment Not on file documented as of this encounter Visit Diagnoses Not on filedocumented in this encounter
--- NOTE | 2025-01-05 14:45 | A.OFFVIS_ITS ---
[facility] Disclaimer: The information contained in this section may have been updated after the patient was seen, as this information can be updated by other users. Medical History Major depressive disorder Social History Smoking Status: Never smoker alcohol intake: never substance use type: denies use current occupational status: other Travel in the last 8 weeks?: None household members: spouse housing: house number of children: 3 caffeine: Yes PM Subjective & Objective Subjective Subjective:: Patient is a pleasant 59-year-old male who presents today for follow-up of his cervical epidural steroid injection C6-C7 on 12/21/2024. Today he rates that pain a 0 out of 10. He states he has had 100% relief following that injection and feels like that is the best its ever been over the last 5 to 6 years. He does however state that following this injection he does notice more pain in and around his left shoulder and shoulder blade area. Patient has had this for longer than 6 months and states that at one point in time he could barely touch that shoulder without severe pain. He does state the pain is interfering with his ability to perform activities of daily living such as cooking and cleaning. He states he is interested in any help we may be able to provide for this pain. Patient is currently managed with gabapentin 600 mg 3 times a day and tizanidine 4 mg 2 tablets at bedtime from our office. He denies any side effects. Patient was just given a 3-month supply of these medications and does not need refills. His Carlos has been reviewed and is appropriate. Interventional therapy: Oral medications Heat and ice Dry needling TENS unit Physical therapy Chiropractor therapy Injection history: Cervical epidural C6 or C7-6 2024-100% relief Review of Systems: General: No recent weight changes, no fever, no sleep disturbances Respiratory: No cough, no shortness of air, no recurring pulmonary infections Cardiovascular/peripheral vascular: No chest pain, no palpitations, no edema, no shortness of breath Gastrointestinal: No new onset incontinence, normal bowel movements reported Genitourinary: No new onset incontinence Musculoskeletal: Left shoulder pain, scapular pain Psychiatric: [Normal mood/affect] Neurological: [Denies weakness in extremities], [denies balance issues] Pain at rest (0-10 scale): 5 Objective Objective:: Physical Exam: General: Alert and oriented x3, no acute distress, pleasant and cooperative Lungs: Respirations even and unlabored, symmetrical chest expansion Eyes: PERRL Musculoskeletal: Flexion and extension of left shoulder somewhat guarded secondary to pain, point tenderness along left trapezius, left rhomboid and left thoracic paraspinous/latissimus muscles Neurological: Speech clear, no gross sensory deficit Has patient had previous pain injection?: Yes Percent improvement in pain since last injection: 100% Conservative treatment options previously tried: Home exercise plan Length of treatment: Longer than 12 weeks Meds Home Medications and Allergies Home Medications ?Medication ?Instructions ?Recorded ?Confirmed ?Type ibuprofen 600 mg tablet 600 mg PO TID Pain 12/27/17 12/21/24 History famotidine 20 mg tablet 20 mg PO TID stomach 9 12/21/24 History fluticasone propionate 50 1 spray intranasal DAILY Norma athing 11/27/18 12/21/24 History mcg/actuation nasal problems spray,suspension gabapentin 100 mg capsule See Rx Instructions PO .COMP FLAVIA 11/27/18 12/21/24 History Pain nebivolol 5 mg tablet (Bystolic) 5 mg PO DAILY bp 05/07/1812/21/24 History omeprazole 40 mg capsule,delayed 40 mg PO DAILY GERD 0 11/27/18 12/21/24 History release tizanidine 4 mg capsule 4 mg PO BID PRN pain 9 12/21/24 History peg 3350-electrolytes 236 240 ml PO Q10M prep 11/09/21 12/21/24 History gram-22.74 gram-6.74 gram-5.86 gram solution dicyclomine 10 mg capsule 10 mg PO TID PRN cramps #14 caps 11/25/22 12/21/24 Rx ondansetron 4 mg disintegrating 4 mg PO Q8H PRN nausea and 11/25/22 12/21/24 Rx tablet vomiting 5 days #14 tabs venlafaxine 150 mg 150 mg PO DAILY . #90 caps 0 10/18/24 12/21/24 Rx capsule,extended release 24 hr (Effexor XR) venlafaxine 75 mg capsule,extended 75 mg PO .COMPLEX # 90 caps 10/18/24 12/21/24 Rx release 24 hr (Effexor XR) diazepam 5 mg tablet 5 mg PO QHS PRN anxiety #14 tabs 11/16/24 12/21/24 Rx gabapentin 600 mg tablet 1,200 mg (2 x 600 mg) PO TID #180 11/29/24 12/21/24 Rx tabs tizanidine 4 mg tablet (Zanaflex) 4 mg PO BID #60 tabs 11/29/24 12/21/24 Rx New Prescriptions to Start Prescriptions: Allergies Allergy/AdvReac Type Severity Reaction Status Date / Time No Known Allergies Allergy Verified 11/15/24 11:17 Assessment and Plan *Assessment and plan (1) Myofascial pain on left side: Status: Chronic Category: Medical Code(s): M79.18 - Myalgia, other site (2) Myofascial pain syndrome of thoracic spine: Status: Chronic Category: Medical Code(s): M79.18 - Myalgia, other site (3) Subacromial bursitis of left shoulder joint: Status: Acute Category: Medical Code(s): M75.52 - Bursitis of left shoulder (4) Left shoulder pain: Status: Acute Category: Medical Code(s): M25.512 - Pain in left shoulder Plan Patient did have significant relief following his cervical epidural and does not require any additional injection therapy at this location. Patient did however have extreme point tenderness along his left trapezius, left rhomboid and left thoracic paraspinous/latissimus muscle during today's visit. I did discuss with the patient that I do believe he would benefit from trigger point injections at these locations. Risk and benefits were discussed with the patient and he would like to proceed forward with this plan of care. Patient has tried and failed conservative therapy including oral medication, heat and ice, topicals, at home stretching exercise for longer than 12 weeks. Patient has also seen physical therapy and chiropractor therapy with no additional relief. We will schedule the patient for trigger point injections of his left trapezius, left rhomboid and left thoracic paraspinous muscles. This will be done without fluoroscopic or ultrasound guidance. Patient has been instructed to contact the clinic with any concerns before the next appointment. Dr. Preston has reviewed this note and agrees with this plan of care. This note was dictated using voice recognition software and make contain errors or omissions. All injections are used with Lidocaine, Bupivacaine and dexamethasone. Occasionally urine drug screen is needed to verify patient's compliance with our office pain contract. This is ordered based off specific treatments related to chronic pain with the potential to abuse certain medications.
[2025-01-05 14:59] VITALS: BP 121/70; PULSE 96; RESP 12; O2SAT 97; BMI 38.7
== END 2025-01-05 23:59 | disposition home or self-care (01) ==
LOC: SC.PAIN 14:11
PROVIDERS: PCP Internal Medicine Adolescent Medicine; Visit Provider Nurse Practitioner Family
DX: M79.18 Myalgia, other site (principal); M75.52 Bursitis of left shoulder
CPT/HCPCS: 99212; G0463

== ENCOUNTER 2025-01-21 09:41 | Day surgery (SDC) | payer MEDICARE, BC, SELFPAY ==
[2025-01-21 09:56] VITALS: BP 116/68; PULSE 83; RESP 18; O2SAT 96; BMI 38.7
[2025-01-21] MEDS: DEXAMETHASONE 10MG/ML 1ML VIAL 10 MG (10:27)
[2025-01-21] MEDS: LIDOCAINE 1% 5ML PF VIAL 5 ML (10:28)
[2025-01-21 10:29] VITALS: BP 123/74; PULSE 76; RESP 18; O2SAT 97
[2025-01-21] MEDS: BUPIVACAINE 0.25% 10ML INJ 25 MG IJ (10:29)
[2025-01-21 10:30] VITALS: BP 112/78; PULSE 76; RESP 18; O2SAT 95
--- NOTE | 2025-01-21 10:42 | EXP.PM.HP ---
History of Present Illness *Admission Date: 01/21/25 *Reason for visit:: Myofascial pain, left shoulder *History of present illness: Same [facility] Disclaimer: The information contained in this section may have been updated after the patient was seen, as this information can be updated by other users. Medical History Major depressive disorder Social History Smoking Status: Never smoker alcohol intake: never substance use type: denies use current occupational status: other Travel in the last 8 weeks?: None household members: spouse housing: house number of children: 3 caffeine: Yes Other Medical History Have you received the Flu Vaccine for this season: No Have you received the Pneumonia Vaccine: No Review of Systems Review of Systems Review of systems:: pertinent systems reviewed and negative unless documented below Review of systems (narrative): Review of Systems: General: No recent weight changes, no fever, no sleep disturbances Respiratory: No cough, no shortness of air, no recurring pulmonary infections Cardiovascular/peripheral vascular: No chest pain, no palpitations, no edema, no shortness of breath Gastrointestinal: No new onset incontinence, normal bowel movements reported Genitourinary: No new onset incontinence Musculoskeletal: Left shoulder pain, mid back pain Psychiatric: [Normal mood/affect] Neurological: [Denies weakness in extremities], [denies balance issues] Meds Home Medications and Allergies Home Medications ?Medication ?Instructions ?Recorded ?Confirmed ?Type ibuprofen 600 mg tablet 600 mg PO TID Pain 12/27/17 01/21/25 History famotidine 20 mg tablet 20 mg PO TID stomach 11/27/18 01/21/25 History fluticasone propionate 50 1 spray intranasal DAILY Breathing 11/27/18 01/21/25 History mcg/actuation nasal problems spray,suspension gabapentin 100 mg capsule See Rx Instructions PO .COMPLEX 11/27/18 01/21/25 History Pain nebivolol 5 mg tablet (Bystolic) 5 mg PO DAILY bp 11/27/18 01/21/25 History omeprazole 40 mg capsule,delayed 40 mg PO DAILY GERD 11/27/18 01/21/25 History release tizanidine 4 mg capsule 4 mg PO BID PRN pain 11/27/18 01/21/25 History peg 3350-electrolytes 236 240 ml PO Q10M prep 11/09/21 01/21/25 History gram-22.74 gram-6.74 gram-5.86 gram solution dicyclomine 10 mg capsule 10 mg PO TID PRN cramps #14 caps 11/25/22 01/21/25 Rx ondansetron 4 mg disintegrating 4 mg PO Q8H PRN nausea and 11/25/22 01/21/25 Rx tablet vomiting 5 days #14 tabs venlafaxine 150 mg 150 mg PO DAILY . #90 caps 10/18/24 01/21/25 Rx capsule,extended release 24 hr (Effexor XR) venlafaxine 75 mg capsule,extended 75 mg PO .COMPLEX #90 caps 10/18/24 01/21/25 Rx release 24 hr (Effexor XR) diazepam 5 mg tablet 5 mg PO QHS PRN anxiety #14 tabs 11/16/24 01/21/25 Rx gabapentin 600 mg tablet 1,200 mg (2 x 600 mg) PO TID #180 11/29/24 01/21/25 Rx tabs tizanidine 4 mg tablet (Zanaflex) 4 mg PO BID #60 tabs 11/29/24 01/21/25 Rx New Prescriptions to Start Prescriptions: Allergies Allergy/AdvReac Type Severity Reaction Status Date / Time No Known Allergies Allergy Verified 01/11/25 08:25 Exam Data for Last 24 hours Vital signs and Labs for Last 24 Hours: Pulse Resp BP Pulse Ox O2 Del Method 76 18 112/78 95 Room Air 01/21/25 10:30 01/21/25 10:30 01/21/25 10:30 01/21/25 10:30 01/21/25 10:30 I & O for Last 24 hours: Intake & Output 01/18/25 01/19/25 01/20/25 01/21/25 23:59 23:59 23:59 23:59 Weight 270 lb Constitutional Constitutional: no acute distress *Routine HEENT Exam Head: Present normocephalic and atraumatic Eye: Present PERRL ENT: Present mucous membranes moist *Routine Neck Exam Neck: Present supple *Routine Respiratory Exam Respiratory: Present CTA bilaterally *Routine Cardiovascular Exam Cardiovascular: Present RRR *Routine Abdominal Exam Abdominal: Present soft *Routine Rectal Exam Rectal:: deferred *Routine Genitalia Exam Genitalia:: deferred Routine Back/Spine/Pelvis Exam Back/Spine: Present pain with flexion *Routine Skin Exam Skin: Present intact and warm *Routine Neurological Exam Neurological: Present alert and oriented X3 Routine Psychiatric Exam Psychiatric: Present normal affect and normal thought process Assessment and Plan *Assessment and plan (1) Left shoulder pain: Status: Acute Category: Medical Code(s): M25.512 - Pain in left shoulder (2) Myofascial muscle pain: Status: Acute Category: Medical Code(s): M79.18 - Myalgia, other site Plan Patient has been instructed to contact the clinic with any concerns before the next appointment. Dr. Preston has reviewed this note and agrees with this plan of care. This note was dictated using voice recognition software and make contain errors or omissions. All injections are used with Lidocaine, Bupivacaine and dexamethasone. Occasionally urine drug screen is needed to verify patient's compliance with our office pain contract. This is ordered based off specific treatments related to chronic pain with the potential to abuse certain medications.
--- NOTE | 2025-01-21 10:44 | EXP.PAIN.PRO ---
Procedure Date: 01/21/25 Time: 10:30 Anesthesiologist:: Christianne Lou APRN Complications:: None Pre-procedure Diagnosis:: Myofascial pain of left rhomboid, trapezius and thoracic paraspinous, left shoulder pain Post-procedure Diagnosis:: Same Indications for Procedure:: Patient is a pleasant 59-year-old male who presents today for trigger point injections in and around his left shoulder. He rates his pain a 5 out of 10. He denies any new trauma or injury. He does state he is still having the same pain that he saw as previously 4. Patient is managed with gabapentin 600 mg 3 times a day and tizanidine 4 mg 2 tablets at bedtime. His Carlos has been reviewed and is appropriate. Physical Exam: General: Alert and oriented x3, no acute distress, pleasant and cooperative Lungs: Respirations even and unlabored, symmetrical chest expansion Eyes: PERRL Musculoskeletal: Flexion and extension of left shoulder somewhat guarded secondary to pain, [antalgic gait noted] point tenderness along left trapezius, rhomboid and thoracic paraspinous/latissimus muscles Neurological: Speech clear, no gross sensory deficit Procedure Details:: Patient did have noninvasive blood pressure cuff applied and pulse oximeter. Patient was placed in a sitting position and palpated along his left trapezius, rhomboid and left thoracic paraspinous/latissimus muscles muscles. Areas of point tenderness were marked and using a sterile 25-gauge needle approximately 10 mL of 0.25% bupivacaine, 1% lidocaine and 10 mg dexamethasone were incrementally injected into his left trapezius, rhomboid and left thoracic paraspinous/latissimus muscles muscles. Needle was removed and sterile bandages applied. Patient tolerated the procedure well with no complications and was discharged neurologically intact. Plan and Disposition:: Patient tolerated the procedure well with no complications and was discharged neurologically intact. Patient will return to clinic in 2 weeks for reevaluation of symptoms and plan of care. Patient has been instructed to contact the clinic with any concerns before the next appointment. Dr. Preston has reviewed this note and agrees with this plan of care. This note was dictated using voice recognition software and make contain errors or omissions. All injections are used with Lidocaine, Bupivacaine and dexamethasone. Occasionally urine drug screen is needed to verify patient's compliance with our office pain contract. This is ordered based off specific treatments related to chronic pain with the potential to abuse certain medications.
== END 2025-01-21 10:29 | disposition home or self-care (01) ==
PROVIDERS: PCP Internal Medicine Adolescent Medicine; Visit Provider Nurse Practitioner Family
DX: M25.512 Pain in left shoulder (principal); M79.18 Myalgia, other site; F32.9 Major depressive disorder, single episode, unspecified; Z79.899 Other long term (current) drug therapy
CPT/HCPCS: 20553; J0665; J1100; J2003

== ENCOUNTER 2025-02-09 10:12 | Outpatient (POV) | payer MEDICARE, BC, SELFPAY ==
--- OUTSIDE RECORDS SUMMARY | 2025-02-09 10:18 | XMS_ITS | Encounter Summary ---
Author Organization [employer] ([place], [place], [place], [place]) Address [address] [place] [address] Care Team Providers Care Pig Casting Machine Operator Name Role Phone Unavailable Primary Care Provider Unavailabl e Encounter Details Date Type Department Care Team (Late st Contact Info) Description 03/15/2019 Transcribed Document [facility] [place] Family Medicine [facility] [address] ProviderBailey MD [address], [place] [id number] Social History Tobacco Use Types Packs/Day Years [...]
--- OUTSIDE RECORDS SUMMARY | 2025-02-09 10:18 | XMS_ITS | Encounter Summary ---
Author Organization [employer] ([place], [place], [place], [place]) Address [address] [place] [address] Care Team Providers Care Heat Engineering Teacher Name Role Phone Unavailable Primary Care Provider Unavailabl e Encounter Details Date Type Department Care Team (Late st Contact Info) Description 08/13/2018 Transcribed Document [facility] [place] Family Medicine [facility] [place] [address] ProviderBailey MD [address], [place] [phone] Social History Tobacco Use Types Packs/Day Years [...] Bailey Varela MD - 08/13/2018 4:36 PM SUPERVISOR BLASTING DATE OF ADMISSION: 08/13/2018 HISTORY OF PRESENT [...] CC2: Dr. Robert Boyle Electronically signed by Josue Kenny Conversion Director Enterprise Data Architecture Cerner at 10/14/2022 8:37 AM CDT documented in this encounter Plan of Treatment Not on file documented as of this encounter Visit Diagnoses Not on filedocumented in this encounter
--- OUTSIDE RECORDS SUMMARY | 2025-02-09 10:18 | XMS_ITS | Encounter Summary ---
Author Organization [employer] ([place], [place], [place], [place]) Address [address] [place] [address] Care Team Providers Care Developmental Education Instructor Name Role Phone Unavailable Primary Care Provider Unavailabl e Encounter Details Date Type Department Care Team (Late st Contact Info) Description 10/01/2019 Transcribed Document [facility] [place] Family Medicine [facility] [place] [address] ProviderBailey MD [facility] [place], [place] [address] Social History Tobacco Use Types Packs/Day Years [...] going to continue to repeat those randomly. /[id number] JUAN Burgess/VERA / ADAM / MANJU documented in this encounter Plan of Treatment Not on file documented as of this encounter Visit Diagnoses Not on filedocumented in this encounter
--- OUTSIDE RECORDS SUMMARY | 2025-02-09 10:18 | XMS_ITS | Clinical Summary ---
Author Organization [facility] Address [address] [place] [address] Care Team Providers Care Tax Credit Leasing Consultant Name Role Phone Robert Boyle MD Primary Care Provider [phone] Social History Tobacco Use Types Packs/Day Years [...] Screening 1966 [facility]-Medicare Annual Wellness (AWV) 1966 [facility]-Infant/Child/Adol SDOH Screenings 1966 [facility]- SDOH Screenings 1984 [facility]-Adult SDOH Screenings 1984 [facility]-Hepatitis B Vaccines (1 of 3 - 19+ 3-dose series) 1985 [facility]-DTaP,Tdap,and Td Vaccines (1 - Tdap) 09/07/1996 09/06/1996 CT Colonography 11/03/2011 Colonoscopy 11/03/2011 FIT-DNA 11/03/2011 FIT 11/03/2011 FOBT 11/03/2011 Sigmoidoscopy 11/03/2011 [facility]-Colorectal Cancer Screening 11/03/2011 [facility]-Pneumococcal Vaccine: 50+ Years (1 of 1 - PCV) 2016 [facility]-Zoster Vaccines (1 of 2) 2016 [id number] Vaccine ( - 2023- season) 2024 11/22/2021, [...] to complete this topic Insurance [place] [id number] [facility] [place] [address] Care Teams Tax Credit Leasing Consultant Relationship Specialty Start Date End Date Robert Boyle MD [address] [place] [id number] PCP - General Internal Medicine 08/20/22
--- OUTSIDE RECORDS SUMMARY | 2025-02-09 10:18 | XMS_ITS | Encounter Summary ---
Author Organization [employer] ([place], [place], [place], [place]) Address [address] [place] [address] Care Team Providers Care Dampproofer Name Role Phone Unavailable Primary Care Provider Unavailabl e Encounter Details Date Type Department Care Team (Late st Contact Info) Description 07/17/2018 Transcribed Document [facility] [place] Medicine [address] [place] [address] ProviderBailey MD [address] [phone] Social History Tobacco Use Types Packs/Day Years [...] Bailey Varela MD - 07/17/2018 9:01 AM SUPERVISOR DRAWING DATE OF ADMISSION: 07/17/2018 HISTORY OF PRESENT [...] Robert Boyle MD Electronically signed by Efraín, [facility] Conversion Home Theatre Technician Cerner at 10/14/2022 8:36 AM CDT documented in this encounter Plan of Treatment Not on file documented as of this encounter Visit Diagnoses Not on filedocumented in this encounter
--- OUTSIDE RECORDS SUMMARY | 2025-02-09 10:18 | XMS_ITS | Encounter Summary ---
Author Organization [employer] ([place], [place], [place], [place]) Address [address] [place] [address] Care Team Providers Care Marine Underwriter Name Role Phone Unavailable Primary Care Provider Unavailabl e Encounter Details Date Type Department Care Team (Late st Contact Info) Description 08/11/2019 Transcribed Document [facility] [place] [facility] [place] [address] ProviderBailey MD [address] [place] [phone] Social History Tobacco Use Types Packs/Day Years [...] Bailey Varela MD - 08/11/2019 7:08 AM VICE PRESIDENT OF BRAND MANAGEMENT DATE OF PROCEDURE: 08/10/2019 SURGEON: Farzad Simmons [...] patient after 1 month to re-evaluate him. /[id number] Farzad Simmons MD, MAUREEN Pain Certified GINETTE/VERA / GINETTE / MANJU /[id number] documented in this encounter Plan of Treatment Not on file documented as of this encounter Visit Diagnoses Not on filedocumented in this encounter
--- OUTSIDE RECORDS SUMMARY | 2025-02-09 10:18 | XMS_ITS | Encounter Summary ---
Author Organization [employer] ([place], [place], [place], [place]) Address [address] [place] [address] Care Team Providers Care Casting Carrier Name Role Phone Unavailable Primary Care Provider Unavailabl e Encounter Details Date Type Department Care Team (Late st Contact Info) Description 06/18/2018 Transcribed Document [facility] [place] [facility] [place] [address] ProviderBailey MD [address], [place] [phone] Social History Tobacco Use Types Packs/Day Years [...] Bailey Varela MD - 06/18/2018 2:44 PM PERFORATOR DATE OF ADMISSION: 06/18/2018 HISTORY OF PRESENT [...] He states he has met with an claims attorney, but does not have much more [...] Marc Solano M.D. Electronically signed by Efraín [facility] Conversion Electrode Turner And Finisher Cerner at 10/14/2022 8:35 AM CDT documented in this encounter Plan of Treatment Not on file documented as of this encounter Visit Diagnoses Not on filedocumented in this encounter
--- OUTSIDE RECORDS SUMMARY | 2025-02-09 10:18 | XMS_ITS | Clinical Summary ---
Author Organization [facility] Address [address] [place] [address] Care Team Providers Care Medical Assembler Name Role Phone Unavailable Primary Care Provider Unavailabl e Social History Tobacco Use Types Packs/Day Years Used Date Smoking Tobacco: Never Assessed Abuse Screen Answer Date Recorded Unsafe at Home or Work/School Not on file Feels Threatened by Someone? Not on file 03/2023 Does Anyone Keep You from Co ntacting Others or Doint Things Outside the Home? Not on file 04/08/2023 Physical Sign of Abuse Present Not on file 1 Housing Stability Answer Date Recorded Current Living Arrangements Not on file 03/30 Potentially Unsafe Housing Conditions Not on jose e 04/08/2023 Family and Community Support Answer Pavan e Recorded Help with Day-to-Day Activities Not on file 04/08/2023 Lonely or Isolated Not on file 04/08/2023 Employment Answer Date Recorded Do you want help finding or keeping work or a deepa b? Not on file 04/08/2023 Disabilities Answer Date Recorded Concentrating, Remembering, or Making Decisions Difficulty Not on file 04/08/2023 Doing Errands Independently Difficulty Not on fi le 04/08/2023 Education Answer Date Recorded Help with school or training? Not on file Preferred Language Not on file 04/08/2023 Sex and Gender Information Value Date Recorded Sex Assigned at Not on file Legal Sex Male 1:52 PM EDT Gender Identity Not on file Sexual Orientation Not on file Plan of Treatment Health Maintenance Due Date Last Done Comments ANNUAL PHYSICAL 1965 HEPATITIS C SCREENING 1966 TDAP/TD VACCINES (1 - Tdap) 1985 COLOGUARD 11/03/2011 COLON CANCER SCREENING 5 YEAR SIGMOIDOSCOPY 11/03/2011 COLONOSCOPY 11/03/2011 COLORECTAL CANCER SCREENING 11/03/2011 CT COLONOGRAPHY 11/03/2011 FECAL OCCULT BLOOD TEST 11/03/2011 FIT Testing (1 year) 11/03/2011 Pneumococcal Vaccine 50+ (1 of 1 - PCV) 2016 ZOSTER VACCINE (1 of 2) 2016 COVID-19 Vaccine ( - 2023- season) 2024 INFLUENZA VACCINE 03/30/2025
--- OUTSIDE RECORDS SUMMARY | 2025-02-09 10:18 | XMS_ITS | Encounter Summary ---
Author Organization [employer] ([place], [place], [place], [place]) Address [address] [place] [address] Care Team Providers Care Natural Gas Shothole Driller Name Role Phone Unavailable Primary Care Provider Unavailabl e Encounter Details Date Type Department Care Team (Late st Contact Info) Description 03/07/2020 Transcribed Document [facility] [place] [facility] [place] [address] ProviderBailey MD [address] [place], [place] [id number] Social History Tobacco Use Types Packs/Day Years [...] visit and the patient has been afebrile. /[id number] Farzad Simmons MD, MAUREEN Pain Certified KR/VERA / GINETTE / MODL /[id number] Electronically signed by Efraín [facility] Conversion Hydraulic Rubbish Compactor Mechanic Cerner at 10/14/2022 8:55 AM CDT documented in this encounter Plan of Treatment Not on file documented as of this encounter Visit Diagnoses Not on filedocumented in this encounter
--- OUTSIDE RECORDS SUMMARY | 2025-02-09 10:18 | XMS_ITS | Encounter Summary ---
Author Organization [employer] ([place], [place], [place]) Address [address] [place] [address] Care Team Providers Care Lead Based Paint Technician Name Role Phone Unavailable Primary Care Provider Unavailabl e Encounter Details Date Type Department Care Team (Late st Contact Info) Description 02/04/2019 Transcribed Document [facility] [place] [facility] [place] [address] ProviderBailey MD [address], [place] [id number] Social History Tobacco Use Types Packs/Day Years [...] CC3: Dr. Keith Solano Electronically signed by [facility] Conversion Inventory Audit Clerk Cerner at 10/14/2022 8:56 AM CDT documented in this encounter Plan of Treatment Not on file documented as of this encounter Visit Diagnoses Not on filedocumented in this encounter
--- OUTSIDE RECORDS SUMMARY | 2025-02-09 10:18 | XMS_ITS | Encounter Summary ---
Author Organization [employer] ([place], [place], [place], [place]) Address [address] [place] [address] Care Team Providers Care Pin Puller Name Role Phone Unavailable Primary Care Provider Unavailabl e Encounter Details Date Type Department Care Team (Late st Contact Info) Description 06/13/[address] [facility] [place] Medicine [facility] [place] [address] ProviderBailey MD [address], [place] [id number] Social History Tobacco Use Types Packs/Day Years [...] Bailey Varela MD - 06/13/2020 4:35 PM CASINO SLOT SUPERVISOR DATE OF ADMISSION: 06/13/2020 HISTORY OF PRESENT [...] visit and the patient has been afebrile. /[id number] Theresa Thibodeaux APRN ADAM/AQ / ADAM / MODL CC: Robert Boyle MD Electronically signed by Efraín [facility] Conversion Manager Creative Services Cerner at 10/14/2022 8:49 AM CDT documented in this encounter Plan of Treatment Not on file documented as of this encounter Visit Diagnoses Not on filedocumented in this encounter
--- OUTSIDE RECORDS SUMMARY | 2025-02-09 10:18 | XMS_ITS | Encounter Summary ---
Author Organization [employer] ([place], [place], [place], [place]) Address [address] [place] [address] Care Team Providers Care Case Management Social Worker Name Role Phone Unavailable Primary Care Provider Unavailabl e Encounter Details Date Type Department Care Team (Late st Contact Info) Description 10/07/2018 Transcribed Document [facility] Family Medicine [facility] [place] [address] ProviderBailey MD [address], [place] [id number] Social History Tobacco Use Types Packs/Day Years [...] Trans: 10/07/2018 12:54:01 CC1: Farzad Simmons M.D., MAUREEN Pain Certified CC2: Dr. Robert Boyle documented in this encounter Plan of Treatment Not on file documented as of this encounter Visit Diagnoses Not on filedocumented in this encounter
--- OUTSIDE RECORDS SUMMARY | 2025-02-09 10:18 | XMS_ITS | Encounter Summary ---
Author Organization [employer] ([place], [place], [place], [place]) Address [address] [place] [address] Care Team Providers Care B2B Appointment Setter Name Role Phone Unavailable Primary Care Provider Unavailabl e Encounter Details Date Type Department Care Team (Late st Contact Info) Description 05/15/2020 Transcribed Document [facility] [place] Family Medicine [address] [place] [address] ProviderBailey MD [address], [place] [id number] Social History Tobacco Use Types Packs/Day Years [...] Bailey Varela MD - 05/15/2020 8:17 AM VIBRATING SCREEN OPERATOR DATE OF PROCEDURE: 05/11/2020 SURGEON: Farzad Simmons [...] 2 to 3 months to re-evaluate him. /[id number] Farzad Simmons MD, MAUREEN Pain Certified GINETTE/VERA / GINETTE / MODL /[id number] Electronically signed by Efraín, [facility] Conversion Enforcement Safety Officer Cerner at 10/14/2022 8:35 AM CDT documented in this encounter Plan of Treatment Not on file documented as of this encounter Visit Diagnoses Not on filedocumented in this encounter
--- OUTSIDE RECORDS SUMMARY | 2025-02-09 10:18 | XMS_ITS | Encounter Summary ---
Author Organization [employer] ([place], [place], [place], [place]) Address [address] [place] [address] Care Team Providers Care Automatic Developer Name Role Phone Unavailable Primary Care Provider Unavailabl e Encounter Details Date Type Department Care Team (Late st Contact Info) Description 05/17/2019 Transcribed Document [facility] [place] Family Medicine [facility] [place] [address] ProviderBailey MD [address], [place] [id number] Social History Tobacco Use Types Packs/Day Years [...] Bailey Varela MD - 05/17/2019 10:33 AM CRA DATE OF SERVICE: 05/14/2019 HISTORY OF PRESENT [...] he can have that filed under his [employer] if at all possible, so that [...] are going to check with the patient's [employer] to see if we are able to [...] medications for this patient's treatment plan today. /[id number] DICTATED BY: Theresa Thibodeaux APRN for Farzad Simmons MD, MAUREEN Pain Certified Farzad Simmons MD, MAUREEN Pain Certified TK/AQ / TK / MODL /[id number] CC: MD Robert Pedraza MD documented in this encounter Plan of Treatment Not on file documented as of this encounter Visit Diagnoses Not on filedocumented in this encounter
--- OUTSIDE RECORDS SUMMARY | 2025-02-09 10:18 | XMS_ITS | Encounter Summary ---
Author Organization [employer] ([place], [place], [place], [place]) Address [address] [place] [address] Care Team Providers Care Safe Expert Name Role Phone Unavailable Primary Care Provider Unavailabl e Encounter Details Date Type Department Care Team (Late st Contact Info) Description 12/10/2019 Transcribed Document [facility] [place] [facility] [place] [address] ProviderBailey MD [address] [place], [place] [address] Social History Tobacco Use Types Packs/Day Years [...] visit and the patient has been afebrile. /[id number] Farzad Simmons MD, MAUREEN Pain Certified KR/AQ / GINETTE / MODL CC: Robert Boyle MD Electronically signed by Efraín [facility] Conversion Naval Gunfire Spotter Cerner at 10/14/2022 8:49 AM CDT documented in this encounter Plan of Treatment Not on file documented as of this encounter Visit Diagnoses Not on filedocumented in this encounter
--- OUTSIDE RECORDS SUMMARY | 2025-02-09 10:18 | XMS_ITS | Encounter Summary ---
Author Organization [employer] ([place], [place], [place], [place]) Address [address] [place] [address] Care Team Providers Care Pigment Presser Name Role Phone Unavailable Primary Care Provider Unavailabl e Encounter Details Date Type Department Care Team (Late st Contact Info) Description 04/03/2020 Transcribed Document [facility] [place] [facility] [place] [address] ProviderBailey MD [address] [place], [place] [phone] Social History Tobacco Use Types Packs/Day Years [...] visit and the patient has been afebrile. /[id number] JUAN Burgess/AQ / ADAM / MODL CC: KEON (REF) MD PAIGE Electronically signed by Efarín [facility] Conversion Beef Skinner Cerner at 10/14/2022 8:59 AM CDT documented in this encounter Plan of Treatment Not on file documented as of this encounter Visit Diagnoses Not on filedocumented in this encounter
--- OUTSIDE RECORDS SUMMARY | 2025-02-09 10:18 | XMS_ITS | Encounter Summary ---
Author Organization [employer] ([place], [place], [place], [place]) Address [address] [place] [address] Care Team Providers Care Education Department Registrar Name Role Phone Unavailable Primary Care Provider Unavailabl e Encounter Details Date Type Department Care Team (Late st Contact Info) Description 09/03/2019 Transcribed Document [facility] Family Medicine [facility] [place] [address] ProviderBailey MD [address], [place] [id number] Social History Tobacco Use Types Packs/Day Years [...] Bailey Varela MD - 09/03/2019 1:05 PM BRUSHER TENDER DATE OF ADMISSION: 09/03/2019 HISTORY OF PRESENT [...] medications for this patient's treatment plan today. /[id number] JUAN Burgess/VERA / ADAM / MODL CC: MD Magnus Taylor MD Electronically signed by [facility] Zita Crane Chaser Darinel at 10/14/2022 9:02 AM CDT documented in this encounter Plan of Treatment Not on file documented as of this encounter Visit Diagnoses Not on filedocumented in this encounter
--- OUTSIDE RECORDS SUMMARY | 2025-02-09 10:18 | XMS_ITS | Encounter Summary ---
Author Organization [employer] ([place], [place], [place], [place]) Address [address] [place] [address] Care Team Providers Care Clinical Ob Name Role Phone Unavailable Primary Care Provider Unavailabl e Encounter Details Date Type Department Care Team (Late st Contact Info) Description 04/12/2019 Transcribed Document [facility] [place] [facility] [place] [address] ProviderBailey MD [address], [place] [id number] Social History Tobacco Use Types Packs/Day Years [...] CC1: Farzad Simmons M.D., MAUREEN Pain Certified Electronically signed by Mikey Kenny Conversion Adjunct Professor Of [employer] Cerner at 10/14/2022 8:38 AM CDT documented in this encounter Plan of Treatment Not on file documented as of this encounter Visit Diagnoses Not on filedocumented in this encounter
--- OUTSIDE RECORDS SUMMARY | 2025-02-09 10:18 | XMS_ITS | Referral Summary ---
Author Organization [employer] ([place], [place], [place], [place]) Address [address] [place] [address] Care Team Providers Care Fare Register Repairer Name Role Phone Unavailable Primary Care Provider [...]
--- OUTSIDE RECORDS SUMMARY | 2025-02-09 10:18 | XMS_ITS | Encounter Summary ---
Author Organization [employer] ([place], [place], [place], [place]) Address [address] [place] [address] Care Team Providers Care Gas Pumping Station Supervisor Name Role Phone Unavailable Primary Care Provider Unavailabl e Reason for Visit * Reason Comments New Med Request Encounter Details Date Type Department Care Team (Late st Contact Info) Description 10/20/2023 [facility] Pain Management [address] [place] [phone] Farzad Simmons MD [address] [place] [address] Social History Tobacco Use Types Packs/Day Years [...]
--- OUTSIDE RECORDS SUMMARY | 2025-02-09 10:18 | XMS_ITS | Encounter Summary ---
Author Organization [employer] ([place], [place], [place], [place]) Address [address] [place] [address] Care Team Providers Care Long Line Teamster Name Role Phone Unavailable Primary Care Provider Unavailabl e Encounter Details Date Type Department Care Team (Late st Contact Info) Description 11/12/2018 Transcribed Document [facility] [place] [facility] [place] [address] ProviderBailey MD [address] [place], [place] [address] Social History Tobacco Use Types Packs/Day Years [...] an upcoming meeting in court case for [employer] and the patient's eligibility to get disability. He states that it has also been really stressful for him. He states that it is also adding into his depression and stress. The patient is still very frustrated that he has been unable to get any kind of Botox injections or any other kind of injections as his [employer] has not been approving anything. The patient [...]
--- OUTSIDE RECORDS SUMMARY | 2025-02-09 10:18 | XMS_ITS | Encounter Summary ---
Author Organization [employer] ([place], [place], [place], [place]) Address [address] [place] [address] Care Team Providers Care Submarine Advisory Team Watch Officer Name Role Phone Unavailable Primary Care Provider Unavailabl e Encounter Details Date Type Department Care Team (Late st Contact Info) Description 09/10/2018 Transcribed Document [facility] [place] Medicine [facility] [place] [address] ProviderBailey MD [address] [place], [place] [id number] Social History Tobacco Use Types Packs/Day Years [...] Dr. Robert Boyle Electronically signed by Efraín [facility] Conversion Marketing Agent Cerner at 10/14/2022 9:02 AM CDT documented in this encounter Plan of Treatment Not on file documented as of this encounter Visit Diagnoses Not on filedocumented in this encounter
--- OUTSIDE RECORDS SUMMARY | 2025-02-09 10:18 | XMS_ITS | Clinical Summary ---
Author Organization [employer] ([place], [place], [place], [place]) Address [address] [place] [address] Care Team Providers Care Aviation Maintenance Instructor Name Role Phone Unavailable Primary Care [...]
--- OUTSIDE RECORDS SUMMARY | 2025-02-09 10:18 | XMS_ITS | Encounter Summary ---
Author Organization [employer] ([place], [place], [place], [place]) Address [address] [place] [address] Care Team Providers Care Seconds Inspector Name Role Phone Unavailable Primary Care Provider Unavailabl e Encounter Details Date Type Department Care Team (Late st Contact Info) Description 01/08/2019 Transcribed Document [facility] [place] Family Medicine [facility] [place] [address] ProviderBailey MD [facility] [place], [place] [phone] Social History Tobacco Use Types Packs/Day Years [...] have encouraged the patient to try some [id number] 4% lidocaine patches or ointment to see [...] Simmons M.D., MAUREEN Pain Certified CC2: Dr. Robetr Boyle documented in this encounter Plan of Treatment Not on file documented as of this encounter Visit Diagnoses Not on filedocumented in this encounter
--- OUTSIDE RECORDS SUMMARY | 2025-02-09 10:18 | XMS_ITS | Encounter Summary ---
Author Organization [employer] ([place], [place], [place], [place]) Address [address] [place] [address] Care Team Providers Care Pbx Wire Chief Name Role Phone Unavailable Primary Care Provider Unavailabl e Encounter Details Date Type Department Care Team (Late st Contact Info) Description 12/11/2018 Transcribed Document [facility] [place] [facility] [place] [address] ProviderBailey MD [facility] [place], [place] [id number] Social History Tobacco Use Types Packs/Day Years [...] with his medication. The patient mentions that [employer] is not going to approve any injections at this time. The patient mentions that because of that he is going to a clinic in [place] that will do some dry needling to [...]
--- OUTSIDE RECORDS SUMMARY | 2025-02-09 10:18 | XMS_ITS | Encounter Summary ---
Author Organization [employer] ([place], [place], [place], [place]) Address [address] [place] [address] Care Team Providers Care Continuous Dryout Operator Name Role Phone Unavailable Primary Care Provider Unavailabl e Encounter Details Date Type Department Care Team (Late st Contact Info) Description 01/07/[address] [facility] [place] [facility] [place] [address] ProviderBailey MD [facility] [place], [place] [address] Social History Tobacco Use Types Packs/Day Years [...] visit and the patient has been afebrile. /[id number] Farzad Simmons MD, MAUREEN Pain Certified KR/AQ / KR / MODL CC: Robert Boyle MD Electronically signed by [facility] Conversion Addressograph Operator Cerner at 10/14/2022 8:47 AM CDT documented in this encounter Plan of Treatment Not on file documented as of this encounter Visit Diagnoses Not on filedocumented in this encounter
--- OUTSIDE RECORDS SUMMARY | 2025-02-09 10:18 | XMS_ITS | Encounter Summary ---
Author Organization [employer] ([place], [place], [place], [place]) Address [address] [place] [address] Care Team Providers Care Satellite Tv Technician Installer Name Role Phone Unavailable Primary Care Provider Unavailabl e Encounter Details Date Type Department Care Team (Late st Contact Info) Description 08/09/2019 Transcribed Document [facility] [place] [facility] [place] [address] ProviderBailey MD [address] [place], [place] [address] Social History Tobacco Use Types Packs/Day Years [...] Bailey Varela MD - 08/09/2019 7:11 AM MANAGER POKER DATE OF ADMISSION: 08/06/2019 HISTORY OF PRESENT [...] patient after 1 month to re-evaluate him. /[id number] Farzad Simmons MD, MAUREEN Pain Certified KR/VERA / GINETTE / MODL CC: MD Robert Ponce MD documented in this encounter Plan of Treatment Not on file documented as of this encounter Visit Diagnoses Not on filedocumented in this encounter
--- OUTSIDE RECORDS SUMMARY | 2025-02-09 10:18 | XMS_ITS | Encounter Summary ---
Author Organization [employer] ([place], [place], [place], [place]) Address [address] [place] [address] Care Team Providers Care Emt Basic Name Role Phone Unavailable Primary Care Provider Unavailabl e Encounter Details Date Type Department Care Team (Late st Contact Info) Description 07/02/2019 Transcribed Document [facility] [place] [facility] [place] [address] ProviderBailey MD [address] [place], [place] [address] Social History Tobacco Use Types Packs/Day Years [...] Bailey Varela MD - 07/02/2019 1:12 PM RN INFORMATICS DATE OF ADMISSION: 07/02/2019 HISTORY OF PRESENT [...] medications for this patient's treatment plan today. /[id number] DICTATED BY: Theresa Thibodeaux APRN for Farzad Simmons MD, MAUREEN Pain Certified Farzad Simmons MD, MAUREEN Pain Certified ADAM/AQ / ADAM / MODL CC: MD Robert Ponce MD documented in this encounter Plan of Treatment Not on file documented as of this encounter Visit Diagnoses Not on filedocumented in this encounter
--- OUTSIDE RECORDS SUMMARY | 2025-02-09 10:18 | XMS_ITS | Encounter Summary ---
Author Organization [employer] ([place], [place], [place], [place]) Address [address] [place] [address] Care Team Providers Care Purifying Plant Operator Name Role Phone Unavailable Primary Care Provider Unavailabl e Encounter Details Date Type Department Care Team (Late st Contact Info) Description 11/11/2019 Transcribed Document [facility] [place] [facility] [place] [address] ProviderBailey MD [address], [place] [id number] Social History Tobacco Use Types Packs/Day Years [...] before bring the patient to the clinic /[id number] Farzad Simmons MD, AMUREEN Pain Certified GINETTE/VERA / KR / MODL /[id number] documented in this encounter Plan of Treatment Not on file documented as of this encounter Visit Diagnoses Not on filedocumented in this encounter
--- OUTSIDE RECORDS SUMMARY | 2025-02-09 10:18 | XMS_ITS | Encounter Summary ---
Author Organization [employer] ([place], [place], [place], [place]) Address [address] [place] [address] Care Team Providers Care Minesweeping Officer Name Role Phone Unavailable Primary Care Provider Unavailabl e Encounter Details Date Type Department Care Team (Late st Contact Info) Description 02/08/2020 Transcribed Document [facility] [place] [address] [place] [address] ProviderBailey MD [address], [place] [id number] Social History Tobacco Use Types Packs/Day Years [...] visit and the patient has been afebrile. /[id number] Farzad Simmons MD, MAUREEN Pain Certified KR/AQ / KR / MODL /[id number] Electronically signed by Mikey Kenny Conversion Hot Plate Plywood Press Laborer Cerner at 10/14/2022 8:41 AM CDT documented in this encounter Plan of Treatment Not on file documented as of this encounter Visit Diagnoses Not on filedocumented in this encounter
--- NOTE | 2025-02-09 10:29 | EXP.PAIN.SOA ---
[facility] Disclaimer: The information contained in this section may have been updated after the patient was seen, as this information can be updated by other users. Medical History Major depressive disorder Social History Smoking Status: Never smoker alcohol intake: never substance use type: denies use current occupational status: other Travel in the last 8 weeks?: None household members: spouse housing: house number of children: 3 caffeine: Yes PM Subjective & Objective Subjective Subjective:: Patient is a pleasant 59-year-old male who presents today for follow-up of his trigger points of his left shoulder that were done on 01/21/2025. He did state that he had 90% improvement but he felt like the area of the mid back only lasted about 6 hours. He states he is not having any issues with his shoulder but that the mid back is interfering with his ability perform activities of daily living. Patient is interested in any help we may be able to provide as it is pretty much constant and has gone on for about 5 to 6 years. Patient did previously have a cervical epidural C6-C7 back on December 21 and did provide 100% relief. Patient is currently managed with gabapentin 600 mg 3 times a day and tizanidine 4 mg 2 tablets at bedtime office. He denies any side effects. His Carlos has been reviewed and is appropriate. Review of Systems: General: No recent weight changes, no fever, no sleep disturbances Respiratory: No cough, no shortness of air, no recurring pulmonary infections Cardiovascular/peripheral vascular: No chest pain, no palpitations, no edema, no shortness of breath Gastrointestinal: No new onset incontinence, normal bowel movements reported Genitourinary: No new onset incontinence Musculoskeletal: Mid back pain, left-sided rib pain Psychiatric: [Normal mood/affect] Neurological: [Denies weakness in extremities], [denies balance issues] Pain at rest (0-10 scale): 5 Objective Objective:: Physical Exam: General: Alert and oriented x3, no acute distress, pleasant and cooperative Lungs: Respirations even and unlabored, symmetrical chest expansion Eyes: PERRL Musculoskeletal: Flexion and extension of thoracic [spine] somewhat guarded secondary to pain, [antalgic gait noted] Neurological: Speech clear, no gross sensory deficit Has patient had previous pain injection?: Yes Percent improvement in pain since last injection: 90% Conservative treatment options previously tried: Home exercise plan Length of treatment: Longer than 12 weeks Meds Home Medications and Allergies Home Medications ?Medication ?Instructions ?Recorded ?Confirmed ?Type ibuprofen 600 mg tablet 600 mg PO TID Pain 12/27/17 02/09/25 History famotidine 20 mg tablet 20 mg PO TID stomach 11/27/18 02/09/25 History fluticasone propionate 50 1 spray intranasal DAILY Breathing 11/27/18 02/09/25 History mcg/actuation nasal problems spray,suspension gabapentin 100 mg capsule See Rx Instructions PO .COMPLEX 11/27/18 02/09/25 History Pain nebivolol 5 mg tablet (Bystolic) 5 mg PO DAILY bp 11/27/18 02/09/25 History omeprazole 40 mg capsule,delayed 40 mg PO DAILY GERD 11/27/18 02/09/25 History release tizanidine 4 mg capsule 4 mg PO BID PRN pain 11/27/18 02/09/25 History peg 3350-electrolytes 236 240 ml PO Q10M prep 11/09/21 02/09/25 History gram-22.74 gram-6.74 gram-5.86 gram solution dicyclomine 10 mg capsule 10 mg PO TID PRN cramps #14 caps 11/25/22 02/09/25 Rx ondansetron 4 mg disintegrating 4 mg PO Q8H PRN nausea and 11/25/22 02/09/25 Rx tablet vomiting 5 days #14 tabs venlafaxine 150 mg 150 mg PO DAILY . #90 caps 10/18/24 02/09/25 Rx capsule,extended release 24 hr (Effexor XR) venlafaxine 75 mg capsule,extended 75 mg PO .COMPLEX #90 caps 10/18/24 02/09/25 Rx release 24 hr (Effexor XR) diazepam 5 mg tablet 5 mg PO QHS PRN anxiety #14 tabs 11/16/24 02/09/25 Rx gabapentin 600 mg tablet 1,200 mg (2 x 600 mg) PO TID #180 11/29/24 02/09/25 Rx tabs tizanidine 4 mg tablet (Zanaflex) 4 mg PO BID #60 tabs 11/29/24 02/09/25 Rx New Prescriptions to Start Prescriptions: Allergies Allergy/AdvReac Type Severity Reaction Status Date / Time No Known Allergies Allergy Verified 01/11/25 08:25 Assessment and Plan *Assessment and plan (1) Degenerative disc disease, thoracic: Status: Acute Category: Medical Code(s): M51.34 - Other intervertebral disc degeneration, thoracic region (2) Thoracic radiculopathy: Status: Acute Category: Medical Code(s): M54.14 - Radiculopathy, thoracic region Plan Patient is experiencing worsening pain in his mid back with radiating symptoms to his left rib area. Patient did have limited range of motion during today's visit along with point tenderness. Patient was counseled that he may benefit from a thoracic epidural at this location. Risk and benefits were discussed with patient and he would like to proceed forward with this plan of care. Patient has had this pain for nearly 5 to 6 years with no additional improvement with conservative therapy. He has tried and failed oral medication, heat and ice, topicals, physical therapy and continued at home stretching exercise for longer than 12 weeks. Patient has had recent advanced imaging that did show mild degenerative disc of his thoracic spine. We will submit to insurance for a T ALEX T5-T6 under fluoroscopy. We did also discuss in future if he does not get significant relief that he may be a very good candidate for a spinal cord stimulator trial. We will review over this in future. Patient agrees with this plan of care. Patient has been instructed to contact the clinic with any concerns before the next appointment. Dr. Preston has reviewed this note and agrees with this plan of care. This note was dictated using voice recognition software and make contain errors or omissions. All injections are used with Lidocaine, Bupivacaine and dexamethasone. Occasionally urine drug screen is needed to verify patient's compliance with our office pain contract. This is ordered based off specific treatments related to chronic pain with the potential to abuse certain medications.
[2025-02-09 10:37] VITALS: BP 103/66; PULSE 88; RESP 14; O2SAT 14; BMI 38.7
== END 2025-02-09 23:59 | disposition home or self-care (01) ==
LOC: SC.PAIN 10:14
PROVIDERS: PCP Internal Medicine Adolescent Medicine; Visit Provider Nurse Practitioner Family
DX: M51.14 Intervertebral disc disorders with radiculopathy, thoracic region (principal); Z79.899 Other long term (current) drug therapy
CPT/HCPCS: 99212; G0463

== ENCOUNTER 2025-04-14 18:12 | Observation (INO) | payer MEDICARE, BC, SELFPAY ==
[2025-04-14] VITALS (10 sets, daily range): BP systolic 128–181; BP diastolic 81–111; PULSE 113–127; RESP 15–30; TEMP 36.8; O2SAT 95–100; BMI 39.4
--- OUTSIDE RECORDS SUMMARY | 2025-04-14 18:34 | XMS_ITS | Clinical Summary ---
Author Organization [facility] yste Address [address] [place] [address] Care Team Providers Care Epic Willow Specialist Name Role Phone Unavailable Primary Care [...] 2016 ZOSTER VACCINE (1 of 2) 2016 INFLUENZA VACCINE 01/28/2025
--- OUTSIDE RECORDS SUMMARY | 2025-04-14 18:34 | XMS_ITS | Clinical Summary ---
Author Organization [facility] Address [address] [place] [address] Care Team Providers Care Bass Viol Repairer Name Role Phone Robert Boyle MD Primary Care Provider [phone] Social History Tobacco Use Types Packs/Day Years [...] 2016 UKY-Zoster Vaccines (1 of 2) 2016 LMJ-UYYAG-12 Vaccine ( - season) 2025 11/22/2021, 06/27/2021, 10/25/2020, Additional history exists UKY-Influenza [...] to complete this topic Insurance [place] [id number] [facility] MEDICARE Care Teams Bass Viol Repairer Relationship Specialty Start Date End Date Robert Boyle MD [address] [place] [id number] PCP - General Internal Medicine 08/20/22
--- OUTSIDE RECORDS SUMMARY | 2025-04-14 18:35 | XMS_ITS | Data Portability ---
Author Organization [facility] [place] [facility] Address [address] [place] [address] Care Team Providers Care Tobacco Roller Name Role Phone ROBERT GIBSON Primary Care Provider [phone] Assessment Encounter Date Assessment Date Assessment LastModified [...] improve. Able to progress [place] program at [facility] appt. Updated ther ex per flow [...] By Organization Details Last Modified Time 04/08/2019 [id number] I think at this point in time, [...] symptoms. [email or web address] Not available 04/08/2019 13:28:03 08/12/2019 [id number] shoulder pain: care instructions [email or web address] Not available [...] these. [email or web address] Not available 08/12/2019 17:02:31 01/13/2020 [id number] Complex conditio n and review of dr [...] and Address Organization Details Recorded Time Scapulalgia 83974090 Active 2018 Scooby Littlefie ld null, [facility] 9 17:57:42 Muscular incoordination 36347804 Active 2018 Scooby Littlef[place] null, [facility] 9 17:57:43 Abnormal posture 71162056 Active 2018 Scooby Littlef[place] [facility] null, [facility] 9 17:57:46 Muscle weakness 54688925 Active 2018 [place] null, [facility] 9 17:57:49 Problem Notes None recorded. Procedures Surgical History Date Name Laterality Status Provider Name and Address Organization Details Recorded Time 03/12/20 19 PT Therapeutic Exercise completed EVELIA DAHL II, PT, DPT [address] [place], [address], [facility] 03/12/2019 10:23:06 03/02/20 19 PT Therapeutic Exercise completed EVELIA DAHL II, PT, DPT [address] [place], [address], [facility] 03/11/2019 14:08:58 02/20/20 19 PT Therapeutic Exercise completed EVELIA DAHL II, PT, DPT [address] [place], [address], [facility] 02/19/2019 10:20:13 02/09/20 19 PT Manual Therapy completed [facility] 02/08/2019 12:58:49 02/09/20 19 PT Therapeutic Exercise completed [facility] 02/08/2019 12:58:53 02/02/20 19 PT Manual Therapy completed [facility] 02/01/2019 12:56:55 02/02/20 19 PT Therapeutic Exercise completed [facility] 02/01/2019 12:56:33 01/26/20 19 PT Manual Therapy completed [facility] 01/25/2019 12:40:38 01/26/20 19 PT Therapeutic Exercise completed [facility] 01/25/2019 12:40:19 01/13/20 19 PT Evaluation - Moderate Complexity completed EVELIA DAHL II, PT, DPT [address] [place], [address], [facility] 01/13/2019 07:31:06 01/13/20 19 PT Therapeutic Exercise completed [facility] 01/12/2019 14:49:08 11/07/19 18 PT Evaluation - Moderate Complexity completed MORENA RAGLAND, PT [address] [place], [address], [facility] 11/06/2017 13:05:38 11/07/19 18 PT Therapeutic Exercise completed MORENA RAGLAND, PT [address] [place], [address], [facility] 01/25/2018 08:10:43 Orthopedic Surgery completed Eleni Lambert [facility] 10/20/2017 10:26:28 Imaging Results None recorded. Procedure [...] Updated DateTime 08/12/2019 175.26 cm 44.3 kg/m2 909128.71 g 138/90 mm[Hg] Heavenly Barnes [facility] 08/12/2019 14:44:31 Date Recorded Body height Body mass index (BMI) Body weight Systolic And Diastolic Provider Name and Address Organization Details Last Updated DateTime 01/13/2020 175.26 cm 44.3 kg/m2 774232.71 g 158/108 mm[Hg] Damaris Vladislav [facility] 01/13/2020 14:11:15 Date Recorded Body height Body mass index (BMI) Body weight Systolic And Diastolic Provider Name and Address Organization Details Last Updated DateTime 04/08/2019 175.26 cm 44.3 kg/m2 181120.71 g 136/80 mm[Hg] Eleni Kwonls [facility] 04/08/2019 09:09:08 Social History Question Answer Notes LastModified by Organizat ion Details LastModified Time Tobacco Smoking Status Never Smoker Elenidaysi Kwonls [facility] 10/20/2017 10:27:31 What Was The Date [...] Diagnosis SNOMED-CT Code Diagnosis ICD10 Code Diagnosis IMO Codes Diagnosis Note [id number] W MYRA SOLANO MD [facility] [address] [address] 11/06/2017 09:13:06 11/06/2017 14:11:13 Scapulalgia 23021958 M89.8X1 [id number] MORENA RAGLAND, PT PHYSICAL THERAPY / HAND THERAPY [facility] [address] [place] [address] 6 11/06/2017 12:58:32 01/26/2018 07:38:46 Scapulalgia 47619043 M25.512 Pain of sh oulder region 47641594 M25.512 Muscle weakness 81046030 M62.81 [id number] Kvng SOLANO MD [facility] [address] [place] [address] 6 01/08/2018 08:46:11 01/08/2018 09:33:50 Scapulalgia 29348744 M89.8X1 [id number] Kvng SOLANO MD [facility] [address] [place] [address] 6 02/16/2018 09:11:35 02/16/2018 09:47:06 Scapulalgia 23043478 M89.8X1 [id number] Kvng SOLANO MD [facility] [address] [place] [address] 6 04/20/2018 14:45:11 04/20/2018 16:57:00 Scapulalgia 55316376 M89.8X1 [id number] Kvng SOLANO MD [facility] [address] [place] [address] 6 05/25/2018 14:00:14 05/25/2018 14:34:34 Scapulalgia 27190403 M89.8X1 [id number] Kvng SOLANO MD [facility] [address] [place] [address] 6 07/03/2018 09:41:18 07/03/2018 11:07:05 Scapulalgia 80302388 M89.8X1 [id number] Kvng SOLANO MD [facility] [address] [place] [address] 10/02/2018 09:19:03 10/02/2018 10:28:19 Pain of shoulder region 50247796 M25.149 [id number] Kvng SOLANO MD [facility] [address] [place] [address] 01/01/2019 09:48:17 01/01/2019 10:46:30 Pain of shoulder region 09622705 M25.804 [id number] EVELIA DAHL II, PT, DPT PHYSICAL THERAPY / HAND THERAPY [facility] [address] [place] [address] 01/12/2019 12:59:40 01/13/2019 08:02:15 Scapulalgia 84146828 M89.8X1 Muscular incoordination 40316194 R27.8 Abnormal posture 7414194 2 R29.3 Muscle weakness 82481523 M62.81 [id number] EVELIA DAHL II, PT, DPT PHYSICAL THERAPY / HAND THERAPY [facility] [address] [address] 01/25/2019 11:17:39 01/25/2019 16:58:55 Scapulalgia 41182455 M89.8X1 Muscle weakness 28714545 M62.81 Muscular incoordination 43322110 R27.8 Abnormal posture 2141582 2 R29.3 [id number] EVELIA DAHL II PT, DPT PHYSICAL THERAPY / HAND THERAPY [facility] [address] [place] [address] 02/01/2019 11:25:31 02/08/2019 14:48:31 Scapulalgia 85652412 M89.8X1 Muscle weakness 42378448 M62.81 Muscular incoordination 07733358 R27.8 Abnormal posture 7534930 2 R29.3 [id number] EVELIA DAHL II, PT, DPT PHYSICAL THERAPY / HAND TH[facility]APY [facility] [address] [place] [address] 02/08/2019 11:23:32 02/12/2019 08:08:44 Scapulalgia 25022382 M89.8X1 Muscle weakness 77463410 M62.81 Muscular incoordination 34629285 R27.8 Abnormal posture 5761360 2 R29.3 [id number] EVELIA DAHL II, PT, DPT PHYSICAL THERAPY / HAND THERAPY [facility] [address] [place] [address] 6 02/19/2019 09:45:02 02/19/2019 11:20:04 Scapulalgia 83317300 M89.8X1 Muscle weakness 78028605 M62.81 Muscular incoordination 44817800 R27.8 Abnormal posture 8685596 2 R29.3 [id number] EVELIA DAHL II, PT, DPT PHYSICAL THERAPY / HAND THERAPY [facility] [address] [place] [address] 6 03/02/2019 16:32:57 03/12/2019 08:10:41 Scapulalgia 31294906 M89.8X1 Muscle weakness 13439034 M62.81 Muscular incoordination 03182653 R27.8 Abnormal posture 2526553 2 R29.3 [id number] EVELIA DAHL II, PT, DPT PHYSICAL THERAPY / HAND TH[facility]APY [facility] [address] [place] [address] 6 03/12/2019 09:47:02 03/22/2019 15:20:23 Scapulalgia 56206382 M89.8X1 Muscle weakness 28485065 M62.81 Muscular incoordination 78039528 R27.8 Abnormal posture 2298496 2 R29.3 [id number] Kvng SOLANO MD [facility] [address] [place] [address] 6 04/08/2019 08:42:22 04/08/2019 09:59:20 Scapulalgia 16318164 M89.8X1 [id number] Kvng SOLANO MD [facility] [address] [place] [address] 6 08/12/2019 14:30:28 08/12/2019 16:24:19 Pain of shoulder region 18879987 M25.965 [id number] RICHIE MICHEL MD [facility] [address] [place] [address] 01/13/2020 12:55:00 01/13/2020 15:02:01 Pain of left shoulder joint 1032891106 3109629 M25.512 Scapulalgia 01064867 M25 .519 Health Concerns Section Related Observation LastModified by Organization Detai ls LastModified Time None Recorded Concern Status LastModified by Organization Details LastModified Time None Recorded Advance Directives Directive None Recorded Payers Insurance Date Sequence Insurance Name Policy Number Policy Perrin Covered Member ID Perrin Member ID Guarantor Name 04/10/2020 1 [place] [id number] Tyler Toussaint [id number] Toussaint Notes Date Note Type [...] travel time. EVELIA DAHL II, PT, DPT [address] [place], [address], [facility] 03/11/2019 14:11:01 03/12/2019 text/html Pt reports his left shoulder is significantly improved. Reports, I feel great. Reports he is thang his HEP very well. States he was able to travel without an inc in pain. Reports he has no new complaints. Inc soreness due to over particiaption if HEP. EVELIA DAHL II, PT, DPT [address] [place], [address], [facility] 03/22/2019 12:35:58 04/08/2019 text/html He continues to [...] Botox injections. Kvng SOLANO MD [address] [place], [address], [facility] 04/08/2019 13:49:58 08/12/2019 text/html Since last being [...] the Botox. Kvng SOLANO MD [address] [place], [address], [facility] 08/13/2019 12:02:19 01/13/2020 text/html 01/13/20 PCP: Robert Gibson MD SEEN FOR CONSULTATION AT THE REQUEST OF: Keith Solano MD WHAT: Left Shoulder pain WHERE: WHEN: 11/2016 How: Repetitive Stress - worked at [employer] Previous history of injury or surgery: No Botox injections every 3 months does help a little started in june dr lomax at pain mgmt he thinks it i a knot in muscle just above shoulder blade he wants to keep going with botox helps a little dr solano feels it is not surgical started at [facility] case denied forced into long term by [facility] no trauma he does not want to hear that it is in bone he stims every night and heat therapy [facility] gabapentin and ibuprofen tried tizanaidine PAIN: Pain Rating: Current 6, Worst 10 SYMPTOMS: Locking Clicking/Popping Catching Buckling Instability Pain with pivot/twist yes Grinding Swelling Stiffness Burning Numbness/tingling X-RAY: , MRI: Yes, Patient has disc 12/06/19 - [facility] PT: Duration: Injection: Date: NSAIDS: Medrol: [...] scheduled for the Botox. RICHIE MICHEL MD [address] [place], [address], [facility] 02/06/2020 23:23:05
--- NOTE | 2025-04-14 18:36 | HMH.EDGENADL ---
Discharge Plan Disposition Patient Disposition: Home, Self-Care Condition: Good Clinical Impressions Clinical Impression: Gastroenteritis Discharge ED Provider: Alyse Morejon General Adult HPI General Chief complaint: Nausea/Vomiting/Diarrhea Stated complaint: Diarrhea & Vomiting Time Seen by Provider: 04/14/25 18:36 Mode of Arrival: Ambulatory Source of Information: Patient and Spouse Description of Symptoms (Recalled from ER Triage Doc. by RN): patient presents to the ED for nausea/ vomiting/ diarrhea that started at 10am and has gotten worse since then. History of Present Illness HPI narrative: Patient is a 59-year-old male with a past medical history of bowel obstruction that required an ostomy and then a reversal as well as other abdominal surgeries who presented to the emergency department with acute onset of nausea vomiting and diarrhea since this morning. Patient states that he woke up around 10 AM has had multiple episodes of nonbloody vomiting and nonbloody diarrhea. Patient states that he is having intermittent abdominal pain as well. Patient denies any fevers. Patient denies any chest pain or shortness of breath. Patient states that he has been unable to keep anything down. Patient states that he has not had any recent sick exposures. Related Data Home Medications ?Medication ?Instructions ?Recorded ?Confirmed fluticasone propionate 50 1 spray intranasal DAILY 11/27/18 04/15/25 mcg/actuation nasal spray,suspension nebivolol 5 mg tablet (Bystolic) 5 mg PO DAILY bp 11/27/18 04/15/25 omeprazole 40 mg capsule,delayed 40 mg PO DAILY 11/27/18 04/15/25 release cetirizine 10 mg tablet 10 mg PO DAILY 04/15/25 04/15/25 diazepam 5 mg tablet 5 mg PO HSP PRN Insomnia 04/15/25 04/15/25 finerenone 20 mg tablet (Kerendia) 20 mg PO DAILY 04/15/25 04/15/25 semaglutide 14 mg tablet (Rybelsus) 14 mg PO DAILY 04/15/25 04/15/25 venlafaxine 150 mg 150 mg PO DAILY 04/15/25 04/15/25 capsule,extended release 24 hr (Effexor XR) venlafaxine 75 mg capsule,extended 75 mg PO DAILY 04/15/25 04/15/25 release 24 hr (Effexor XR) Previous Rx's ?Medication ?Instructions ?Recorded gabapentin 600 mg tablet 1,200 mg (2 x 600 mg) PO TID #180 11/29/24 tabs ondansetron 4 mg disintegrating 4 mg PO Q6H PRN nausea and 04/15/25 tablet vomiting #16 tabs Allergies Allergy/AdvReac Type Severity Reaction Status Date / Time No Known Allergies Allergy Verified 03/31/25 11:13 [facility] Disclaimer: The information contained in this section may have been updated after the patient was seen, as this information can be updated by other users. Medical History (Updated 04/15/25 @ 00:55 by Marley Joy APRN) DONATO on CPAP HLD (hyperlipidemia) HTN (hypertension) Major depressive disorder Surgical History (Updated 04/15/25 @ 00:29 by Marley Joy APRN) History of appendectomy H/O wrist surgery H/O elbow surgery H/O colectomy Social History Smoking Status: Never smoker alcohol intake: never substance use type: denies use current occupational status: other Travel in the last 8 weeks?: None household members: spouse housing: house number of children: 3 caffeine: Yes Have you lived/traveled outside [place] in past 30 days?: No Contact w/someone who lives/traveled outside [place] past 30 days?: No Exposure to someone with infectious disease in past 14 days?: No Do you have a fever (greater than 100.4 F or 38 C)?: No Have you tested positive for COVID-19?: No Exposed to someone with COVID-19 in past 14 days?: No Do you have a sore throat?: No Do you have a cough?: No Do you have any weakness?: No Do you have any diarrhea?: Yes Are you experiencing any unusual bleeding?: No Do you have any muscle aches/pain?: No Do you have any abdominal pain?: No Are you experiencing loss of taste or smell?: No Other Medical History Have you received the Flu Vaccine for this season: Yes Have you received the Pneumonia Vaccine: No ROS Obtained: Yes All systems reviewed & no additional complaints except as documented and Yes Systems reviewed as appropriate & no additional complaints except as documented Physical Exam General General appearance: alert and in no apparent distress Head Head exam: atraumatic, normocephalic and normal inspection Eye Eye exam: Present normal appearance, PERRL and EOMI; Absent scleral icterus ENT ENT exam: Present normal exam and normal external ear exam Neck Neck exam: Present normal inspection and full ROM Chest Chest inspection: Present normal inspection and symmetric chest wall rise Respiratory Respiratory exam: Present normal lung sounds bilaterally; Absent respiratory distress or wheezes Cardiovascular Cardiovascular exam: Present regular rate, normal rhythm and normal heart sounds Abdominal Exam Abdominal exam: Present soft, distention and tenderness (diffuse); Absent guarding or rebound Extremities Exam Extremities exam: Present normal inspection and full ROM Back Exam Back exam: Present normal inspection and full ROM Neurological Exam Neurological exam: Present alert and oriented X3 Psychiatric Psychiatric exam: Present normal affect and normal mood Skin Skin exam: Present warm and dry Medical Decision Making Medical Records Medical records reviewed: Yes I reviewed the patient's medical records. Screening: Per USPSTF and CDC recommendations, given the prevalence of disease in our region, it is our hospital?s policy to screen for HIV and viral Hepatitis for all patients aged 18 and over and those with ongoing risk factors. Carlos Inquiry Pt receiving controlled substance: No Vital Signs: 04/14/25 18:24 04/14/25 19:02 04/14/25 19:30 Temperature 98.2 F Temperature Source Oral Pulse Rate 122 H 113 H Pulse Rate [Right Radial] 125 H Respiratory Rate 20 15 29 H Blood Pressure 128/90 143/104 H Blood Pressure [Right Arm] 181/111 H Blood Pressure Mean 117 Blood Pressure Mean [Right Arm] 134 Blood Pressure Source [Right Arm] Automatic Cuff Blood Pressure Position Blood Pressure Position [Right Arm] Sitting 02 Sat by Pulse Oximetry 98 99 100 Oxygen Delivery Method Room Air 04/14/25 20:00 04/14/25 20:32 04/14/25 21:00 Temperature Temperature Source Pulse Rate 114 H 127 H 119 H Pulse Rate [Right Radial] Respiratory Rate 30 H 19 22 Blood Pressure 140/103 H 158/89 H 141/87 H Blood Pressure [Right Arm] Blood Pressure Mean 116 Blood Pressure Mean [Right Arm] Blood Pressure Source [Right Arm] Blood Pressure Position Blood Pressure Position [Right Arm] 02 Sat by Pulse Oximetry 99 97 96 Oxygen Delivery Method 04/14/25 22:11 04/14/25 22:30 04/14/25 22:48 Temperature Temperature Source Pulse Rate 121 H 118 H Pulse Rate [Right Radial] Respiratory Rate 30 H 21 Blood Pressure 141/84 H 140/96 H Blood Pressure [Right Arm] Blood Pressure Mean Blood Pressure Mean [Right Arm] Blood Pressure Source [Right Arm] Blood Pressure Position Blood Pressure Position [Right Arm] 02 Sat by Pulse Oximetry 96 97 Oxygen Delivery Method Room Air 04/14/25 23:00 04/14/25 23:00 04/14/25 23:33 Temperature 98.2 F Temperature Source Oral Pulse Rate 119 H 119 H Pulse Rate [Right Radial] Respiratory Rate 19 19 Blood Pressure 131/81 131/81 Blood Pressure [Right Arm] Blood Pressure Mean Blood Pressure Mean [Right Arm] Blood Pressure Source [Right Arm] Blood Pressure Position Sitting Blood Pressure Position [Right Arm] 02 Sat by Pulse Oximetry 95 Oxygen Delivery Method Room Air Room Air Lab Data Lab results reviewed: Yes I reviewed the patient's lab results. Lab Results 04/14/25 18:38: WBC 19.1 H, RBC 5.51, Hgb 17.2, Hct 49.2, MCV 89.3, MCH 31.2, MCHC 35.0, RDW 13.0, Plt Count 277, MPV 11.0 H, Neut % (Auto) 90.8 H, Lymph % (Auto) 2.7 L, Evangeline % (Auto) 4.1, Eos % (Auto) 1.0, Baso % (Auto) 0.6, Neut # (Auto) 17.3 H, Lymph # (Auto) 0.5 L, Evangeline # (Auto) 0.8, Eos # (Auto) 0.2, Baso # (Auto) 0.1, Total Counted 100, Neutrophils % (Manual) 89 H, Lymphocytes % (Manual) 1 L, Monocytes % (Manual) 7, Eosinophils % (Manual) 3, Platelet Estimate Normal, Polychromasia 1+, Hypochromasia 1+, Poikilocytosis 1+, Anisocytosis 1+, Macrocytosis 1+, VBG pH 7.41, VBG pCO2 35.6, VBG pO2 23.1 L, VBG HCO3 22.0 L, VBG Total CO2 23.1, VBG O2 Saturation 44.2 L, VBG Base Excess -2.7 L, VBG Lactic Acid 3.1 H, Sodium 139, Potassium 5.5 H, Chloride 104, Carbon Dioxide 22, Anion Gap 18.5 H, BUN 18, Creatinine 1.20, Estimated Creat Clear 118, Estimated GFR 62, Est GFR ( Amer) 75, Glucose 107 H, Calcium 9.7, Phosphorus 1.7 L, Magnesium 1.8, Total Bilirubin 1.4 H, AST 35, ALT 33, Alkaline Phosphatase 115, Total Protein 8.5 H, Albumin 4.8, Globulin 3.7 H, Albumin/Globulin Ratio 1.3, Lipase 257 04/14/25 20:55: SARS-CoV-2 (PCR) Not detected, Influenza Type A (PCR) Not detected, Influenza Type B (PCR) Not detected, RSV (PCR) Not detected, Rhinovirus (PCR) Not detected 04/15/25 05:20 04/15/25 05:20 Orders (Tests/Meds): ED MEDICATIONS Discontinued Medications Generic Name Dose Route Start Last Admin Trade Name Freq PRN Reason Stop Dose Admin Acetaminophen 650 mg 04/14/25 22:51 04/15/25 00:33 Acetaminophen 325mg Tab PO 05/14/25 22:50 650 mg Q4HP PRN Administration Fever or Mild Pain (1-3) Diazepam 2 mg 04/14/25 18:49 04/14/25 18:54 Diazepam 10mg/2ml Syringe IV 04/14/25 18:50 2 mg ONCE ONE Administration Diphenhydramine HCl 12.5 mg 04/14/25 20:20 04/14/25 20:31 Diphenhydramine 50mg/Ml Vial IV 04/14/25 20:21 12.5 mg ONCE ONE Administration Enoxaparin Sodium 40 mg 04/15/25 09:00 04/15/25 09:59 Enoxaparin 40mg/0.4ml Syringe SUBCUT 05/15/25 08:59 40 mg DAILY ADRIAN Administration Lactated Ringer's 1,000 mls @ 999 mls/hr 04/14/25 18:49 04/14/25 20:00 Lactated Ringer's 1000 Ml Bag IV 04/14/25 19:49 Infused .Q1H1M ONE Infusion Lactated Ringer's 1,000 mls @ 999 mls/hr 04/14/25 20:20 04/14/25 21:36 Lactated Ringer's 1000 Ml Bag IV 04/14/25 21:20 Infused .Q1H1M ONE Infusion Sodium Chloride 1,000 mls @ 100 mls/hr 04/14/25 22:45 Sod Chlor 0.9% 1000ml Bag IV 05/14/25 22:44 .Q10H ADRIAN Lactated Ringer's 1,000 mls @ 125 mls/hr 04/14/25 23:00 04/15/25 14:01 Lactated Ringer's 1000 Ml Bag IV 05/14/25 22:59 Infused .Q8H ADRIAN Infusion Iopamidol 75 ml 04/14/25 19:37 04/14/25 19:38 Iopamidol-370 (76%);100ml Bottle IV 04/14/25 19:38 75 ml ONCE ONE Administration Ondansetron HCl 4 mg 04/14/25 18:49 04/14/25 18:55 Ondansetron 4mg/2ml Vial IV 04/14/25 18:50 4 mg ONCE ONE Administration Ondansetron HCl 4 mg 04/14/25 22:51 04/15/25 10:00 Ondansetron 4mg/2ml Vial IV 05/14/25 22:50 4 mg Q8HP PRN Administration Nausea Potassium Phosphate 500 mg 04/14/25 19:23 04/14/25 21:51 K-Phos Neutral 250mg Tablet PO 04/14/25 19:24 500 mg ONCE ONE Administration Prochlorperazine Edisylate 10 mg 04/14/25 20:20 04/14/25 20:31 Prochlorperazine 10mg/2ml Vial IV 04/14/25 20:21 10 mg ONCE ONE Administration Sodium Chloride 10 ml 04/14/25 19:37 04/14/25 19:38 Sodium Chloride 0.9% 10ml Syr (Rad Only) IV 04/14/25 19:38 10 ml ONCE ONE Administration Sodium Chloride 10 ml 04/14/25 22:51 Sodium Chloride 0.9% 10ml Flush Syringe IV 05/14/25 22:50 NEEDED PRN Maintain IV Site ORDERS Category Date Time Status CT abdomen pelvis w con Stat Cat Scan 04/14/25 18:49 Completed CBC w/Auto Diff [Complete Blood Count Auto Diff] Stat Lab 04/14/25 18:38 Completed CMP [Comprehensive Metabolic Panel] Stat Lab 04/14/25 18:38 Completed Lipase Stat Lab 04/14/25 18:38 Completed MAG [Magnesium] Stat Lab 04/14/25 18:38 Completed Mini Respiratory Panel Stat Lab 04/14/25 20:55 Completed PHOS [Phosphorous] Stat Lab 04/14/25 18:38 Completed VBG [Venous Blood Gas] Stat RT 04/14/25 18:38 Completed Medical Decision Narrative: Patient is a 59-year-old gentleman with a past medical history of abdominal surgeries who presented to the emergency department with acute onset of nausea vomiting and diarrhea. On arrival, patient was tachycardic but otherwise vital signs were unremarkable. Patient was afebrile. Differential includes but not limited to: Dehydration, electrolyte abnormalities, gastroenteritis, bowel obstruction, amongst others. Patient was given IV fluids given his tachycardia and given IV nausea medications. Patient's labs were reviewed and interpreted by myself: CBC showed a leukocytosis of 19, hemoglobin was stable. CMP was unremarkable. Lactate mildly elevated at 3. Phosphorus low at 1.7. Magnesium normal. Respiratory panel negative. Patient continued to be tachycardic and had significant vomiting therefore patient was given an additional liter of IV fluids and given IV Compazine. CT abdomen was reviewed and interpreted by myself and per radiology showed no evidence of bowel obstruction, fluid-filled bowel suggestive of gastroenteritis. After second liter of IV fluids, patient continued to be tachycardic, patient was tolerating very little p.o. intake at the bedside. At this time I felt the patient warranted admission. I discussed the case with hospital medicine. Patient was put on IV maintenance fluids and patient was admitted. Critical Care Critical Care Time Critical Care Time: No
--- NOTE | 2025-04-14 18:49 | CT_ITS ---
PROCEDURE INFORMATION: Exam: CT Abdomen And Pelvis With Contrast Exam date and time: 04/14/2025 7:40 PM Age: 59 years old Clinical indication: Other: Diffuse tenderness v/d HX of obstructions TECHNIQUE: Imaging protocol: Computed tomography of the abdomen and pelvis with contrast. Radiation optimization: All CT scans at this facility use at least one of these dose optimization techniques: automated exposure control; mA and/or kV adjustment per patient size (includes targeted exams where dose is matched to clinical indication); or iterative reconstruction. Contrast material: ISOVUE; Contrast volume: 75 ml; Contrast route: IV; COMPARISON: No relevant prior studies available. FINDINGS: Lungs: Minor subsegmental atelectasis in the lung bases. Heart: Heart size normal. Coronary arteries: No coronary artery calcification. Esophagus: The visualized distal esophagus is largely contracted without gross abnormality. Liver: Normal contour. No mass lesions. No intrahepatic biliary ductal dilatation. Gallbladder and biliary ducts: Small calcified gallstones settling dependently in the gallbladder lumen near the neck. No changes of cholecystitis. Nondilated bile ducts. Pancreas: Normal. No inflammatory changes or ductal dilation. Spleen: Mild splenomegaly measuring 15.6 cm. No focal splenic lesions. Adrenal glands: Normal. No adrenal mass. Kidneys and ureters: No acute abnormalities. No hydronephrosis or hydroureter. No urinary tract stones are identified. Stomach and bowel: Mildly excessive fluid content and mucosal enhancement suspected in the stomach, small bowel, and colon suggesting mild generalized changes of gastroenterocolitis. No bowel dilatation or transition point to suggest bowel obstruction. No perforation. Sigmoid anastomosis without gross complication. Appendix: The appendix is not identified. No secondary signs of appendicitis. Intraperitoneal space: No peritoneal free fluid or air. Vasculature: No acute vascular abnormalities. Lymph nodes: In the Urinary bladder: Unremarkable as visualized. Reproductive: Borderline mild prostate enlargement. Bones/joints: No acute osseous abnormalities. Incidental 15 x 7 mm sclerotic non expansile probable benign fibro-osseous lesion in the left in the lateral 8th rib which does not require further evaluation. Soft tissues: No acute soft tissue abnormalities. Midline infraumbilical postoperative scarring in the anterior abdominal wall.Very small fatty umbilical hernia and small fatty right inguinal hernia. No evidence of associated bowel herniation or strangulation. IMPRESSION: 1. Findings suggestive of mild generalized gastroenterocolitis and developing diarrheal state. No evidence of bowel obstruction or perforation. 2. Gallstones without evidence of cholecystitis or biliary obstruction. 3. Splenomegaly. 4. Additional nonemergent findings detailed above.
[2025-04-14] MEDS: LACTATED RINGERS 1000ML 1,000 ML 999 ML IV ×2 (18:54→20:30)
[2025-04-14] MEDS: diazePAM 10MG/2ML SYRINGE 2 MG IV (18:54)
[2025-04-14] MEDS: ONDANSETRON 4MG/2ML VIAL 4 MG IV (18:55)
[2025-04-14 19:02] LABS: VBG HCO3 22.0 mmol/L (23-30); VBG PCO2 35.6 mmol/L (35-51); VBG PH 7.41 mmol/L (7.31-7.41); VBG PO2 23.1 mmol/L (28-40)
[2025-04-14 19:05] LABS: Lactate Venous 3.1 mmol/L (0.4-2.0)
[2025-04-14 19:06] LABS: Hematocrit 49.2 % (42.0-52.0); Hemoglobin 17.2 g/dL (14.1-18.0); Immature Granulocytes % 0.8 %; Mean Corpuscular HGB Conc 35.0 g/dL (31.8-35.4); Mean Corpuscular Hemoglobin 31.2 pg (27.0-31.2); Mean Corpuscular Volume 89.3 fl (80-94); Nucleated Red Blood Cells % 0 %; Platelet Count 277 K/mm3 (142-424); Red Blood Count 5.51 M/mm3 (4.60-6.20); Red Cell Distribution Width-SD 42.1 fL; White Blood Count 19.1 K/mm3 (4.8-10.8)
[2025-04-14 19:14] LABS: Albumin Level 4.8 g/dl (3.5-5.0); Chloride 104 mmol/L (98-107); Sodium 139 mmol/L (136-145)
[2025-04-14 19:15] LABS: Potassium 5.5 mmoL/L (3.5-5.1)
[2025-04-14 19:17] LABS: Alanine Aminotransferase 33 U/L (12-78); Albumin/Globulin Ratio 1.3 (1.1-1.8); Alkaline Phosphatase 115 U/L (38-126); Anion Gap 18.5 mEq/L (5-15); Aspartate Amino Transferase 35 U/L (17-59); Bilirubin,Total 1.4 mg/dl (0.2-1.3); Blood Urea Nitrogen 18 mg/dl (9-20); Calcium 9.7 mg/dl (8.4-10.2); Carbon Dioxide 22 mmol/L (22.0-30.0); Creatinine Clearance Estimated 118 mL/min (50-200); Creatinine,Serum 1.20 mg/dl (0.66-1.25); Estimated Glomerular Filt Rate 62 ml/min (>60); GFR (African American) 75 ML/MIN (>60); Globulin 3.7 g/dL (1.3-3.2); Glucose 107 mg/dl (74-100); Lipase 257 U/L (23-300); Magnesium 1.8 mg/dl (1.6-2.3); Total Protein,Serum 8.5 g/dl (6.3-8.2)
[2025-04-14 19:19] LABS: Phosphorous 1.7 mg/dl (2.5-4.5)
--- NOTE | 2025-04-14 19:28 | ECG_ITS ---
APPROVED REPORT Exam: Resting ECG HR:113 bpm ECG Measurements Heart Rate 113 AXES KS 159 P 18 QRSd 101 QRS -36 QT 320 T 32 QTc 387 Conclusion Sinus tachycardia without acute ST or T wave changes concerning for ischemia Electronically signed by : Alyse Morejon, 04/15/2025 22:47:28
[2025-04-14 19:33] LABS: Hypochromasia 1+; Poikilocytosis 1+; Total Cells Counted 100
[2025-04-14 19:34] LABS: Anisocytosis 1+; Macrocytosis 1+; Polychromasia 1+
[2025-04-14] MEDS: SODIUM CHLORIDE 0.9% 10ML SYR (RAD ONLY) 10 ML IV (19:38)
[2025-04-14] MEDS: IOPAMIDOL-370 (76%);100ML BOTTLE 75 ML IV (19:38)
[2025-04-14] MEDS: PROCHLORPERAZINE 10MG/2ML VIAL 10 MG IV (20:31)
[2025-04-14 20:58] LABS: Coronavirus 19, PCR Not Detected (NotDetected); Influenza A, PCR Not Detected (NotDetected); Influenza B, PCR Not Detected (NotDetected)
[2025-04-14] MEDS: K-PHOS NEUTRAL 250MG TABLET 500 MG PO (21:51)
[2025-04-14 23:04] LABS: Reflex Lactic Add Lactic Reflex
--- NOTE | 2025-04-14 23:10 | PC.NURSE ---
Attempt to give report, CHRISTINE ambrosio report to call s RN back when available.
--- NOTE | 2025-04-14 23:18 | P.HP_ITS ---
<Statement entered by Tk Pérez MD - 04/15/25 17:58> Rounded on patient after nurse practitioner. Personally examined and interviewed patient. Agree with exam findings and care plan as documented. History of Present Illness *Admission Date: 04/14/25 *Reason for visit:: vomiting and diarrhea *History of present illness: 59-year-old male patient presents to the ER with complaints of sudden onset vomiting and diarrhea about 930 this morning. Denies abdominal pain, specifically states his muscles are just sore from vomiting. Diarrhea is watery. No blood in his stool or emesis. Patient was tachycardic in the ER and only improved slightly after 2 L of fluid. He denies chest pain or shortness of breath. Denied fever chills or bodyaches at home. He does have fever here tonight. No recent sick contacts, hospitalizations or antibiotics. Vomiting osorio s subsided but he continues to be nauseous and continues to have diarrhea. [facility] Disclaimer: The information contained in this section may have been updated after the patient was seen, as this information can be updated by other users. Medical History (Updated 04/15/25 @ 00:55 by Marley Joy APRN) DONATO on CPAP HLD (hyperlipidemia) HTN (hypertension) Major depressive disorder Surgical History (Updated 04/15/25 @ 00:29 by Marley Joy APRN) History of appendectomy H/O wrist surgery H/O elbow surgery H/O colectomy Social History Smoking Status: Never smoker alcohol intake: never substance use type: denies use current occupational status: other Travel in the last 8 weeks?: None household members: spouse housing: house number of children: 3 caffeine: Yes Have you lived/traveled outside [place] in past 30 days?: No Contact w/someone who lives/traveled outside US past 30 days?: No Exposure to someone with infectious disease in past 14 days?: No Do you have a fever (greater than 100.4 F or 38 C)?: No Have you tested positive for COVID-19?: No Exposed to someone with COVID-19 in past 14 days?: No Do you have a sore throat?: No Do you have a cough?: No Do you have any weakness?: No Do you have any diarrhea?: Yes Are you experiencing any unusual bleeding?: No Do you have any muscle aches/pain?: No Do you have any abdominal pain?: No Are you experiencing loss of taste or smell?: No Other Medical History Have you received the Flu Vaccine for this season: Yes Have you received the Pneumonia Vaccine: No Review of Systems Constitutional Constitutional: Denies body ache(s) and Denies chills Eyes Eyes: Reports system reviewed and no additional complaints, except as documented ENT Ears, Nose, Mouth, and Throat: Reports system reviewed and no additional complaints, except as documented *Cardiovascular Cardiovascular: Denies chest pain, Denies dyspnea and Denies leg edema *Respiratory Respiratory: Denies dyspnea *Gastrointestinal Gastrointestinal: Reports diarrhea and Reports vomiting *Genitourinary Genitourinary: Reports system reviewed and no additional complaints, except as documented *Musculoskeletal Musculoskeletal: Reports system reviewed and no additional complaints, except as documented Integumentary/Breasts Skin/Breast: Reports system reviewed and no additional complaints, except as documented *Neurologic Neurologic: Reports system reviewed and no additional complaints, except as documented Psychiatric Psychiatric: Reports system reviewed and no additional complaints, except as documented Endocrine Endocrine: Reports system reviewed and no additional complaints, except as documented Hematologic/Lymphatic Hematologic/Lymphatic: Reports system reviewed and no additional complaints, except as documented Allergic/Immunologic Allergic/Immunologic: Reports system reviewed and no additional complaints, except as documented Meds Home Medications and Allergies Home Medications ?Medication ?Instructions ?Recorded ?Confirmed ?Type ibuprofen 600 mg tablet 600 mg PO TID Pain 12/27/17 03/31/25 History famotidine 20 mg tablet 20 mg PO TID stomach 9 03/31/25 History fluticasone propionate 50 1 spray intranasal DAILY Norma athing 11/27/18 03/31/25 History mcg/actuation nasal problems spray,suspension gabapentin 100 mg capsule See Rx Instructions PO .COMP FLAVIA 11/27/18 03/31/25 History Pain nebivolol 5 mg tablet (Bystolic) 5 mg PO DAILY bp 10/3003/31/25 History omeprazole 40 mg capsule,delayed 40 mg PO DAILY GERD 0 11/27/18 03/31/25 History release tizanidine 4 mg capsule 4 mg PO BID PRN pain 9 03/31/25 History peg 3350-electrolytes 236 240 ml PO Q10M prep 11/09/21 03/31/25 History gram-22.74 gram-6.74 gram-5.86 gram solution dicyclomine 10 mg capsule 10 mg PO TID PRN cramps #14 caps 11/25/22 03/31/25 Rx ondansetron 4 mg disintegrating 4 mg PO Q8H PRN nausea and 11/25/22 03/31/25 Rx tablet vomiting 5 days #14 tabs diazepam 5 mg tablet 5 mg PO QHS PRN anxiety #14 tabs 11/16/24 03/31/25 Rx gabapentin 600 mg tablet 1,200 mg (2 x 600 mg) PO TID #180 11/29/24 03/31/25 Rx tabs tizanidine 4 mg tablet (Zanaflex) 4 mg PO BID #60 tabs 11/29/24 03/31/25 Rx venlafaxine 150 mg 150 mg PO DAILY . #90 caps 1 03/31/25 Rx capsule,extended release 24 hr (Effexor XR) venlafaxine 75 mg capsule,extended 75 mg PO .COMPLEX # 90 caps 03/31/25 03/31/25 Rx release 24 hr (Effexor XR) New Prescriptions to Start Prescriptions: Allergies Allergy/AdvReac Type Severity Reaction Status Date / Time No Known Allergies Allergy Verified 03/31/25 11:13 Exam Data for Last 24 hours Vital signs and Labs for Last 24 Hours: Temp Pulse Resp BP Pulse Ox O2 Del Method 98.2 F 119 H 19 131/81 95 Room Air 04/14/25 18:24 04/14/25 23:00 04/14/25 23:00 04/14/25 23:00 04/14/25 23:00 04/14/25 18:24 Laboratory Results - last 24 hr 04/14/25 18:38: WBC 19.1 H, RBC 5.51, Hgb 17.2, Hct 49.2, MCV 89.3, MCH 31.2, MCHC 35.0, RDW 13.0, Plt Count 277, MPV 11.0 H, Neut % (Auto) 90.8 H, Lymph % (Auto) 2.7 L, [place] % (Auto) 4.1, Eos % (Auto) 1.0, Baso % (Auto) 0.6, Neut # (Auto) 17.3 H, Lymph # (Auto) 0.5 L, [place] # (Auto) 0.8, Eos # (Auto) 0.2, Baso # (Auto) 0.1, Total Counted 100, Neutrophils % (Manual) 89 H, Lymphocytes % (Manual) 1 L, Monocytes % (Manual) 7, Eosinophils % (Manual) 3, Platelet Estimate Normal, Polychromasia 1+, Hypochromasia 1+, Poikilocytosis 1+, Anisocytosis 1+, Macrocytosis 1+, VBG pH 7.41, VBG pCO2 35.6, VBG pO2 23.1 L, VBG HCO3 22.0 L, VBG Total CO2 23.1, VBG O2 Saturation 44.2 L, VBG Base Excess - 2.7 L, VBG Lactic Acid 3.1 H, Sodium 139, Potassium 5.5 H, Chloride 104, Carbon Dioxide 22, Anion Gap 18.5 H, BUN 18, Creatinine 1.20, Estimated Creat Clear 118, Estimated GFR 62, Est GFR ( Amer) 75, Glucose 107 H, Calcium 9.7, Phosphorus 1.7 L, Magnesium 1.8, Total Bilirubin 1.4 H, AST 35, ALT 33, Alkaline Phosphatase 115, Total Protein 8.5 H, Albumin 4.8, Globulin 3.7 H, Albumin/Globulin Ratio 1.3, Lipase 257 I & O for Last 24 hours: Intake & Output 04/11/25 04/12/25 04/13/25 04/14/25 23:59 23:59 23:59 23:59 Intake Total 1999 Balance 1999 Weight 124.738 kg Constitutional Constitutional: mild distress and obese *Routine HEENT Exam Head: Present normocephalic and atraumatic Eye: Present PERRL ENT: Present mucous membranes moist *Routine Neck Exam Neck: Present supple *Routine Respiratory Exam Respiratory: Present CTA bilaterally *Routine Cardiovascular Exam Cardiovascular: Present Normal S1, Normal S2 and tachycardia *Routine Abdominal Exam Abdominal: Present soft and normoactive bowel sounds *Routine Rectal Exam Rectal:: deferred *Routine Genitalia Exam Genitalia:: deferred *Routine Extremities Exam Extremities: Present pulses intact; Absent edema *Routine Skin Exam Skin: Present intact *Routine Neurological Exam Neurological: Present alert, oriented X3 and moving all extremities Routine Psychiatric Exam Psychiatric: Present normal affect Assessment and Plan *Assessment and plan (1) Sepsis: Status: Acute Qualifiers: Sepsis acute organ dysfunction status: without acute organ dysfunction Sepsis type: sepsis due to unspecified organism Qualified Code(s): A41.9 - Sepsis, unspecified organism Category: Medical Code(s): A41.9 - Sepsis, unspecified organism (2) Gastroenteritis: Status: Acute Category: Medical Code(s): K52.9 - Noninfective gastroenteritis and colitis, unspecified (3) Tachycardia: Status: Acute Category: Medical Code(s): R00.0 - Tachycardia, unspecified (4) Hypophosphatemia: Status: Acute Category: Medical Code(s): E83.39 - Other disorders of phosphorus metabolism Plan Patient has been admitted after discussion with the ER physician due to intractable diarrhea secondary to gastroenteritis. He does meet sepsis criteria with fever, leukocytosis, tachycardia and GI source. Initial lactic acid was elevated at 3.1, is now improved to 1.9. Patient remains nauseous but vomiting has been controlled with IV medications. Continues to have diarrhea. Will provide IV fluids for hydration. Check stool culture. Antiemetics as needed. Will monitor on telemetry. Suspect heart rate will improve with hydration and control of fever. Phosphorus was replaced in the ER. Will repeat labs in the morning.
--- NOTE | 2025-04-14 23:31 | PC.NURSE ---
Report given to CHRISTINE Suazo
--- NOTE | 2025-04-14 23:48 | PC.NURSE ---
Patient arrived to floor via stretcher from ED at 23:40.
[2025-04-15] VITALS: BP 121/56; PULSE 126; RESP 14; TEMP 37.8; O2SAT 96; BMI 39.3
[2025-04-15 00:13] VITALS: PULSE 110
[2025-04-15] MEDS: ACETAMINOPHEN 325MG TAB 650 MG PO (00:33)
[2025-04-15] MEDS: ONDANSETRON 4MG/2ML VIAL 4 MG IV ×2 (00:33→10:00)
[2025-04-15 00:34] LABS: Lactic Acid Follow Up (RFLX 1) 1.9 mmol/L (0.7-2.1)
[2025-04-15 04:00] VITALS: BP 126/72; PULSE 100; PULSE 90; RESP 12; TEMP 37.1; O2SAT 93; BMI 39.3
[2025-04-15] MEDS: LACTATED RINGERS 1000ML 1,000 ML 125 ML IV (04:27)
[2025-04-15 06:11] LABS: Hematocrit 44.5 % (42.0-52.0); Immature Granulocytes % 0.9 %; Mean Corpuscular HGB Conc 33.3 g/dL (31.8-35.4); Mean Corpuscular Hemoglobin 30.1 pg (27.0-31.2); Mean Corpuscular Volume 90.6 fl (80-94); Nucleated Red Blood Cells % 0 %; Platelet Count 197 K/mm3 (142-424); Red Blood Count 4.91 M/mm3 (4.60-6.20); Red Cell Distribution Width-SD 43.6 fL; White Blood Count 9.7 K/mm3 (4.8-10.8)
[2025-04-15 06:19] LABS: Hemoglobin 14.8 g/dL (14.1-18.0)
[2025-04-15 06:49] LABS: Albumin Level 3.7 g/dl (3.5-5.0); Chloride 106 mmol/L (98-107); Sodium 136 mmol/L (136-145)
[2025-04-15 06:50] LABS: Potassium 4.1 mmoL/L (3.5-5.1)
[2025-04-15 06:52] LABS: Alanine Aminotransferase 23 U/L (12-78); Albumin/Globulin Ratio 1.2 (1.1-1.8); Alkaline Phosphatase 87 U/L (38-126); Anion Gap 10.1 mEq/L (5-15); Aspartate Amino Transferase 26 U/L (17-59); Bilirubin,Total 1.2 mg/dl (0.2-1.3); Blood Urea Nitrogen 19 mg/dl (9-20); Carbon Dioxide 24 mmol/L (22.0-30.0); Creatinine Clearance Estimated 118 mL/min (50-200); Creatinine,Serum 1.20 mg/dl (0.66-1.25); Estimated Glomerular Filt Rate 62 ml/min (>60); GFR (African American) 75 ML/MIN (>60); Globulin 3.1 g/dL (1.3-3.2); Total Protein,Serum 6.8 g/dl (6.3-8.2)
[2025-04-15 06:53] LABS: Calcium 8.5 mg/dl (8.4-10.2); Glucose 100 mg/dl (74-100); Phosphorous 3.3 mg/dl (2.5-4.5)
--- NOTE | 2025-04-15 07:59 | HMH.PHAINT1 ---
Pharmacy Intervention Comments: MEDICATION RECONCILIATION COMPLETED ON PATIENT USING EXTERNAL FILL HISTORY FROM PHARMACY AND JODIE REPORT. -MILE MALONEY, KAVITHAD
[2025-04-15 08:00] VITALS: BP 148/90; PULSE 87; PULSE 90; RESP 16; TEMP 36.7; O2SAT 95
[2025-04-15 09:38] LABS: Adenovirus F 40/41, stool Not Detected (NotDetected); Clostridium Difficile A/B, PCR Not Detected (NotDetected); Cyclospora Cayetanesis Not Detected (NotDetected); Plesimonas Shigalloides, PCR Not Detected (NotDetected); Salmonella, PCR Not Detected (NotDetected); Shiga-like toxin E coli Not Detected (NotDetected); Shigella Enterovasive E coli Not Detected (NotDetected); Vibrio, PCR Not Detected (NotDetected); Yersinia Entercolitica, PCR Not Detected (NotDetected)
--- NOTE | 2025-04-15 10:11 | P.DS_ITS ---
<Statement entered by Tk Pérez MD - 04/15/25 18:01> Rounded on patient after nurse practitioner. Personally examined and interviewed patient. Agree with exam findings and care plan as documented. General Admission date:: 04/14/25 HPI HPI HPI: 59-year-old male patient presents to the ER with complaints of sudden onset vomiting and diarrhea about 930 this morning. Denies abdominal pain, specifically states his muscles are just sore from vomiting. Diarrhea is watery. No blood in his stool or emesis. Patient was tachycardic in the ER and only improved slightly after 2 L of fluid. He denies chest pain or shortness of breath. Denied fever chills or bodyaches at home. He does have fever here tonight. No recent sick contacts, hospitalizations or antibiotics. Vomiting has subsided but he continues to be nauseous and continues to have diarrhea. Hospital Course Hospital Course Hospital Course: Mr. Toussaint is a 59-year-old male who presented to the emergency department yesterday evening with complaints of nausea, vomiting, diarrhea since 930 that morning. He denied chest pain, abdominal pain, chills, shortness of breath. He reports his diarrhea as watery with no blood or mucus. He received 2 L of IV fluids in the ED. Hospital medicine was contacted due to intractable diarrhea secondary to gastroenteritis. Patient did have a low-grade fever of 100.1, tachycardia, elevated lactate at 3.1, and leukocytosis with WBC of 19.1 which met sepsis criteria. Abdomen/pelvis CT showed mild generalized gastroenterocolitis and diarrheal state. Patient was admitted for further management and monitoring. Patient received IV fluids overnight for dehydration, diarrhea panel showed positive for enterotoxigenic, EPEC, and norovirus. He was given Zofran at discharge for nausea. Reassessment this morning patient is doing much better. He states he has had 2 bowel movements both unformed but less watery. Continues to deny blood in his stool. Patient has had no episodes of vomiting since admission, states he does have some intermittent nausea. Patient was kept n.p.o. overnight given IV hydration. Patient was given Jell-O and water this morning at breakfast and tolerated p.o. intake without issues. Patient's lactate trended downward to 1.9, he has been afebrile since admission, heart rate has stabilized and he is no longer tachycardic. Patient labs are stable, initial white count 19.1 likely reactive, trending downward today to 19.7. No electrolyte abnormalities noted, anion gap was 18.5, trending downward to 10.1. Patient at this time is ready for discharge, discharging home with Zofran as needed for nausea. Discussed continued oral hydration. Exam Data for Last 24 hours Vital signs and Labs for Last 24 Hours: Temp Pulse Resp BP Pulse Ox O2 Del Method 98.0 F 87 16 148/90 H 95 Room Air 04/15/25 08:00 04/15/25 08:00 04/15/25 08:00 04/15/25 08:00 04/15/25 08:00 04/15/25 08:00 Laboratory Results - last 24 hr 04/14/25 18:38: WBC 19.1 H, RBC 5.51, Hgb 17.2, Hct 49.2, MCV 89.3, MCH 31.2, MCHC 35.0, RDW 13.0, Plt Count 277, MPV 11.0 H, Neut % (Auto) 90.8 H, Lymph % (Auto) 2.7 L, [place] % (Auto) 4.1, Eos % (Auto) 1.0, Baso % (Auto) 0.6, Neut # (Auto) 17.3 H, Lymph # (Auto) 0.5 L, [place] # (Auto) 0.8, Eos # (Auto) 0.2, Baso # (Auto) 0.1, Total Counted 100, Neutrophils % (Manual) 89 H, Lymphocytes % (Manual) 1 L, Monocytes % (Manual) 7, Eosinophils % (Manual) 3, Platelet Estimate Normal, Polychromasia 1+, Hypochromasia 1+, Poikilocytosis 1+, Anisocytosis 1+, Macrocytosis 1+, VBG pH 7.41, VBG pCO2 35.6, VBG pO2 23.1 L, VBG HCO3 22.0 L, VBG Total CO2 23.1, VBG O2 Saturation 44.2 L, VBG Base Excess - 2.7 L, VBG Lactic Acid 3.1 H, Sodium 139, Potassium 5.5 H, Chloride 104, Carbon Dioxide 22, Anion Gap 18.5 H, BUN 18, Creatinine 1.20, Estimated Creat Clear 118, Estimated GFR 62, Est GFR ( Amer) 75, Glucose 107 H, Calcium 9.7, Phosphorus 1.7 L, Magnesium 1.8, Total Bilirubin 1.4 H, AST 35, ALT 33, Alkaline Phosphatase 115, Total Protein 8.5 H, Albumin 4.8, Globulin 3.7 H, Albumin/Globulin Ratio 1.3, Lipase 257 04/14/25 20:55: SARS-CoV-2 (PCR) Not detected, Influenza Type A (PCR) Not detected, Influenza Type B (PCR) Not detected, RSV (PCR) Not detected, Rhinovirus (PCR) Not detected 04/15/25 00:17: Lactate 1.9 04/15/25 05:20: WBC 9.7 D, RBC 4.91, Hgb 14.8 D, Hct 44.5, MCV 90.6, MCH 30.1, MCHC 33.3, RDW 13.2, Plt Count 197 D, MPV 11.1 H, Neut % (Auto) 74.6, Lymph % (Auto) 14.5, [place] % (Auto) 8.3, Eos % (Auto) 1.0, Baso % (Auto) 0.7, Neut # (Auto) 7.3, Lymph # (Auto) 1.4, [place] # (Auto) 0.8, Eos # (Auto) 0.1, Baso # (Auto) 0.1, Sodium 136, Potassium 4.1 D, Chloride 106, Carbon Dioxide 24, Anion Gap 10.1, BUN 19, Creatinine 1.20, Estimated Creat Clear 118, Estimated GFR 62, Est GFR ( Amer) 75, Glucose 100, Calcium 8.5, Phosphorus 3.3 D, Total Bilirubin 1.2, AST 26 D, ALT 23 D, Alkaline Phosphatase 87, Total Protein 6.8, Albumin 3.7 D, Globulin 3.1, Albumin/Globulin Ratio 1.2 I & O for Last 24 hours: Intake & Output 04/12/25 04/13/25 04/14/25 04/15/25 23:59 23:59 23:59 23:59 Intake Total 1999 Output Total 0 / 0 Balance 1999 0 / 0 Weight 124.738 kg 124.738 kg Results Data Completed and Pending Labs on day of discharge: Labs from last 24 hours 04/15/25 04/15/25 04/14/25 05:20 00:17 20:55 WBC 9.7 D RBC 4.91 Hgb 14.8 D Hct 44.5 MCV 90.6 MCH 30.1 MCHC 33.3 RDW 13.2 Plt Count 197 D MPV 11.1 H Neut % (Auto) 74.6 Lymph % (Auto) 14.5 [place] % (Auto) 8.3 Eos % (Auto) 1.0 Baso % (Auto) 0.7 Neut # (Auto) 7.3 Lymph # (Auto) 1.4 [place] # (Auto) 0.8 Eos # (Auto) 0.1 Baso # (Auto) 0.1 Total Counted Neutrophils % (Manual) Lymphocytes % (Manual) Monocytes % (Manual) Eosinophils % (Manual) Platelet Estimate Polychromasia Hypochromasia Poikilocytosis Anisocytosis Macrocytosis VBG pH VBG pCO2 VBG pO2 VBG HCO3 VBG Total CO2 VBG O2 Saturation VBG Base Excess VBG Lactic Acid Sodium 136 Potassium 4.1 D Chloride 106 Carbon Dioxide 24 Anion Gap 10.1 BUN 19 Creatinine 1.20 Estimated Creat Clear 118 Estimated GFR 62 Est GFR ( Amer) 75 Glucose 100 Lactate 1.9 Calcium 8.5 Phosphorus 3.3 D Magnesium Total Bilirubin 1.2 AST 26 D ALT 23 D Alkaline Phosphatase 87 Total Protein 6.8 Albumin 3.7 D Globulin 3.1 Albumin/Globulin Ratio 1.2 Lipase SARS-CoV-2 (PCR) Not detected Influenza Type A (PCR) Not detected Influenza Type B (PCR) Not detected RSV (PCR) Not detected Rhinovirus (PCR) Not detected 04/14/25 18:38 WBC 19.1 H RBC 5.51 Hgb 17.2 Hct 49.2 MCV 89.3 MCH 31.2 MCHC 35.0 RDW 13.0 Plt Count 277 MPV 11.0 H Neut % (Auto) 90.8 H Lymph % (Auto) 2.7 L [place] % (Auto) 4.1 Eos % (Auto) 1.0 Baso % (Auto) 0.6 Neut # (Auto) 17.3 H Lymph # (Auto) 0.5 L [place] # (Auto) 0.8 Eos # (Auto) 0.2 Baso # (Auto) 0.1 Total Counted 100 Neutrophils % (Manual) 89 H Lymphocytes % (Manual) 1 L Monocytes % (Manual) 7 Eosinophils % (Manual) 3 Platelet Estimate Normal Polychromasia 1+ Hypochromasia 1+ Poikilocytosis 1+ Anisocytosis 1+ Macrocytosis 1+ VBG pH 7.41 VBG pCO2 35.6 VBG pO2 23.1 L VBG HCO3 22.0 L VBG Total CO2 23.1 VBG O2 Saturation 44.2 L VBG Base Excess -2.7 L VBG Lactic Acid 3.1 H Sodium 139 Potassium 5.5 H Chloride 104 Carbon Dioxide 22 Anion Gap 18.5 H BUN 18 Creatinine 1.20 Estimated Creat Clear 118 Estimated GFR 62 Est GFR ( Amer) 75 Glucose 107 H Lactate Calcium 9.7 Phosphorus 1.7 L Magnesium 1.8 Total Bilirubin 1.4 H AST 35 ALT 33 Alkaline Phosphatase 115 Total Protein 8.5 H Albumin 4.8 Globulin 3.7 H Albumin/Globulin Ratio 1.3 Lipase 257 SARS-CoV-2 (PCR) Influenza Type A (PCR) Influenza Type B (PCR) RSV (PCR) Rhinovirus (PCR) DS: Diagnosis Discharge Diagnosis (1) Sepsis: Status: Acute Code(s): A41.9 - Sepsis, unspecified organism Qualifiers: Sepsis acute organ dysfunction status: without acute organ dysfunction Sepsis type: sepsis due to unspecified organism Qualified Code(s): A41.9 - Sepsis, unspecified organism (2) Gastroenteritis: Status: Acute Code(s): K52.9 - Noninfective gastroenteritis and colitis, unspecified (3) Tachycardia: Status: Acute Code(s): R00.0 - Tachycardia, unspecified (4) Hypophosphatemia: Status: Acute Code(s): E83.39 - Other disorders of phosphorus metabolism Meds Home Medications and Allergies Home Medications ?Medication ?Instructions ?Recorded ?Confirmed ?Type fluticasone propionate 50 1 spray intranasal DAILY 04/15/25 History mcg/actuation nasal spray,suspension nebivolol 5 mg tablet (Bystolic) 5 mg PO DAILY bp 10/3004/15/25 History omeprazole 40 mg capsule,delayed 40 mg PO DAILY 04/15/25 History release gabapentin 600 mg tablet 1,200 mg (2 x 600 mg) PO TID #180 11/29/24 04/15/25 Rx tabs cetirizine 10 mg tablet 10 mg PO DAILY 04/15/2503/30 History diazepam 5 mg tablet 5 mg PO HSP PRN Insomnia 04/15/25 History finerenone 20 mg tablet (Kerendia) 20 mg PO DAILY 03/3004/15/25 History ondansetron 4 mg disintegrating 4 mg PO Q6H PRN nausea and 04/15/25 Rx tablet vomiting #16 tabs semaglutide 14 mg tablet (Rybelsus) 14 mg PO DAILY 04/15/25 History venlafaxine 150 mg 150 mg PO DAILY 04/15/25 History capsule,extended release 24 hr (Effexor XR) venlafaxine 75 mg capsule,extended 75 mg PO DAILY 03/3004/15/25 History release 24 hr (Effexor XR) New Prescriptions to Start Prescriptions: ondansetron Gail Santana Allergies Allergy/AdvReac Type Severity Reaction Status Date / Time No Known Allergies Allergy Verified 03/31/25 11:13 Discharge Plan Disposition Patient Disposition: Home, Self-Care Condition: Good Follow up Plan Follow up with: Robert Boyle MD [Primary Care Provider, Internal Medicine] - Enter time for follow up Prescriptions/Medication Reconciliation: New ondansetron 4 mg tablet,disintegrating 4 mg PO Q6H PRN (Reason: nausea and vomiting) Qty: 16 0RF Continued Bystolic 5 mg tablet 5 mg PO DAILY Patient Comments: previous doctor omeprazole 40 mg capsule,delayed release(DR/EC) 40 mg PO DAILY Patient Comments: previous doctor fluticasone propionate 50 mcg/actuation spray,suspension 1 spray intranasal DAILY gabapentin 600 mg tablet 1,200 mg PO TID Qty: 180 2RF cetirizine 10 mg tablet 10 mg PO DAILY Patient Comments: TAKE 1 TABLET BY MOUTH ONCE DAILY Rybelsus 14 mg tablet 14 mg PO DAILY Patient Comments: TAKE 1 TABLET BY MOUTH ONCE DAILY Kerendia 20 mg tablet 20 mg PO DAILY Patient Comments: TAKE 1 TABLET BY MOUTH ONCE DAILY venlafaxine [Effexor XR] 75 mg capsule,extended release 24hr 75 mg PO DAILY venlafaxine [Effexor XR] 150 mg capsule,extended release 24hr 150 mg PO DAILY diazepam 5 mg tablet 5 mg PO HSP PRN (Reason: Insomnia) Problem Reconciliation Problems Reviewed?: Yes Patient Discharge Instructions ACTIVITY: Continue current activity DIET: advance to your usual diet Patient Instructions: Diarrhea, DI for Nausea in Adults, DI for Vomiting in Adults Print Language: Telugu Providers Primary Care Provider: Robert Boyle Admit Provider: Tk Pérez Attending Provider: Tk Pérez
[2025-04-15 12:00] VITALS: BP 153/91; PULSE 87; RESP 16; TEMP 36.7; O2SAT 97
--- NOTE | 2025-04-18 10:39 | SW/DCPLANNER ---
Spoke with patient on the phone. Patient stated that he is doing well. Patient stated that he is aware of his upcoming appointment. Patient stated that he was able to get his new medicine picked up from clinic pharmacy. Patient stated that he has no concerns or questions at this time. Jarrod Ramirez
== END 2025-04-15 14:08 | disposition home or self-care (01) ==
LOC: ER 22:48 → 2ND 22:48
PROVIDERS: Nurse Practitioner Acute Care; Admitting Provider Internal Medicine Adolescent Medicine; Emergency Provider Student in an Organized Health Care Education/Training Program; PCP Internal Medicine Adolescent Medicine; Visit Provider Internal Medicine Adolescent Medicine
DX: K52.9 Noninfective gastroenteritis and colitis, unspecified (principal); A41.9 Sepsis, unspecified organism; E83.39 Other disorders of phosphorus metabolism; G47.33 Obstructive sleep apnea (adult) (pediatric); E78.5 Hyperlipidemia, unspecified; I10 Essential (primary) hypertension; F32.9 Major depressive disorder, single episode, unspecified; E66.9 Obesity, unspecified; K80.20 Calculus of gallbladder without cholecystitis without obstruction; R16.1 Splenomegaly, not elsewhere classified; Z68.39 Body mass index [BMI] 39.0-39.9, adult; Z99.89 Dependence on other enabling machines and devices; Z79.899 Other long term (current) drug therapy
CPT/HCPCS: 36415; 74177; 80053; 82803; 83605; 83690; 83735; 84100; 85007; 85025; 85027; 87045; 87507; 87631; 93005; 96361; 96372; 96374; 96375; 96376; 99285; G0378; J0780; J1200; J1650; J2405; J3360; J7120; Q9967